=== PATIENT | female | born 1965 | race African-American/Black ===

== ENCOUNTER 2016-10-20 23:02 | Emergency (ER) | payer OTHER ==
[2016-10-20 23:16] VITALS: TEMP 98.2; BMI 53.7
--- NOTE | 2016-10-20 23:46 | PDOC ---
History of Present Illness - General History Source: Patient Exam Limitations: No Limitations - History of Present Illness Initial Comments: 10/21/16 01:12 The patient is a 50 year old female, with a significant past medical history of Asthma, COPD, Diabetes, HTN, Hiatal hernia, umbilical hernia, Morbid obesity who presents to the emergency department with chest pain today. The patient states her chest pain is 6/10 in severity, localized to the midsternal border with associated SOB exacerbated with movement radiating to her back and shoulder. Patient took asthma pumps however is unsure of the identity. Patient denies any relief and reports to the ED for further evaluation. Patient denies any recent travel or sick contact. Note: Patients LMP was 2 years ago. Patient is a current everyday smoker. She denies headache or dizziness. She denies fever, chills, abdominal pain, nausea, vomit, diarrhea or constipation. She denies dysuria, frequency, urgency or hematuria. Allergies: Shellfish derivative, codeine Past surgical history: C Section Social history: current everyday smoker PCP: Dr. Magan Gonzalez <Aziza Payton - Last Filed: 10/21/16 01:12> - General History Source: Patient <Obed Nguyen - Last Filed: 10/21/16 02:23> - General Chief Complaint: Chest Pain Stated Complaint: CHEST PAIN Time Seen by Provider: 10/20/16 23:39 Past History <Aziza Payton - Last Filed: 10/21/16 01:12> - Past Medical History Asthma: Yes COPD: Yes Diabetes: Yes GI Disorders: Yes (hiatal hernia, umbilical hernia) HTN: Yes - Immunization History Immunization Up to Date: Yes - Psycho/Social/Smoking Cessation Hx Anxiety: No Suicidal Ideation: No Smoking History: Current every day smoker Have you smoked in the past 12 months: Yes Number of Cigarettes Smoked Daily: 10 Information on smoking cessation initiated: No 'Breaking Loose' booklet given: 08/02/13 Hx Alcohol Use: Yes (occasion) Drug/Substance Use Hx: No Substance Use Type: None <Obed Nguyen - Last Filed: 10/21/16 02:23> - Past Medical History Allergies/Adverse Reactions: Allergies Allergy/AdvReac Type Severity Reaction Status Date / Time shellfish derived Allergy Unknown Verified 10/21/16 01:28 codeine Allergy Verified 10/21/16 01:28 Home Medications: Ambulatory Orders Labetalol HCl 200 mg PO TID 04/24/13 Nifedipine [Nifedipine ER] 60 mg PO DAILY 04/24/13 Omeprazole 40 mg PO DAILY 04/24/13 Roflumilast [Daliresp -] 500 mcg PO DAILY 04/24/13 Tiotropium Raymond [Spiriva] 1 inh PO DAILY 04/24/13 Metformin HCl 500 mg PO DAILY 01/28/15 Methylprednisolone [Medrol Dose Gonzalez] 4 mg PO ASDIR #21 tablet 10/21/16 Review of Systems - Review of Systems Able to Perform ROS?: Yes Comments:: 10/21/16 01:12 GENERAL/CONSTITUTIONAL: No fever or chills. No weakness. HEAD, EYES, EARS, NOSE AND THROAT: No change in vision. No ear pain or discharge. No sore throat. CARDIOVASCULAR: + chest pain + shortness of breath RESPIRATORY: No cough, wheezing, or hemoptysis. GASTROINTESTINAL: No nausea, vomiting, diarrhea or constipation. GENITOURINARY: No dysuria, frequency, or change in urination. MUSCULOSKELETAL: No joint or muscle swelling or pain. No neck or back pain. SKIN: No rash NEUROLOGIC: No headache, vertigo, loss of consciousness, or change in strength/ sensation. ENDOCRINE: No increased thirst. No abnormal weight change. HEMATOLOGIC/LYMPHATIC: No anemia, easy bleeding, or history of blood clots. ALLERGIC/IMMUNOLOGIC: No hives or skin allergy. <Aziza Payton - Last Filed: 10/21/16 01:12> *Physical Exam - Vital Signs Last Vital Signs Temp Pulse Resp BP Pulse Ox 98.2 F 88 20 168/104 98 10/20/16 23:14 10/20/16 23:14 10/20/16 23:14 10/20/16 23:14 10/20/16 23:14 - Physical Exam Comments: 10/21/16 01:12 GENERAL: Awake, alert, and fully oriented, in no acute distress. +Morbidly obese. HEAD: No signs of trauma EYES: PERRLA, EOMI, sclera anicteric, conjunctiva clear ENT: Auricles normal inspection, hearing grossly normal, nares patent, oropharynx clear without exudates. Moist mucosa NECK: Normal ROM, supple, no lymphadenopathy, JVD, or masses LUNGS: +Bilateral diminished breath sounds. Clear to auscultation bilaterally. No wheezes, and no crackles HEART: Regular rate and rhythm, normal S1 and S2, no murmurs, rubs or gallops ABDOMEN: Soft, nontender, normoactive bowel sounds. No guarding, no rebound. No masses EXTREMITIES: Normal range of motion, no edema. No clubbing or cyanosis. No cords, erythema, or tenderness NEUROLOGICAL: Cranial nerves II through XII grossly intact. Normal speech, normal gait SKIN: Warm, Dry, normal turgor, no rashes or lesions noted. <Aziza Payton - Last Filed: 10/21/16 01:12> - Vital Signs Last Vital Signs Temp Pulse Resp BP Pulse Ox 98.2 F 88 20 168/104 98 10/20/16 23:14 10/20/16 23:14 10/20/16 23:14 10/20/16 23:14 10/20/16 23:14 <Obed Nguyen - Last Filed: 10/21/16 02:23> ED Treatment Course - LABORATORY CBC & Chemistry Diagram: 10/21/16 01:00 10/21/16 01:00 <Obed Nguyen - Last Filed: 10/21/16 02:23> Medical Decision Making - Medical Decision Making 10/21/16 01:[address] Wendy Singer. rate [address] Interval 144 ms QRS Duration 78 ms QT/QTc 394/474 ms P-R-T axes 64 -3 36 <Aziza Payton - Last Filed: 10/21/16 01:12> - Medical Decision Making 10/21/16 02:22 Dr. Nguyen: The scribe's documentation has been prepared under my direction and personally reviewed by me in its entirery. I confirm that the note above accurately reflects all work, treatment, procedures, and medical decision making performed by me. Patient feels better after treatment here in the department. Patient will be discharged to follow-up with her primary care physician. Advised to stop smoking cigarettes. <Obed Nguyen - Last Filed: 10/21/16 02:23> *DC/Admit/Observation/Transfer - Attestations Scribe Attestion: 10/21/16 01:12 Documentation prepared by Aziza Payton, acting as medical biller for Obed Nguyen DO. <FitoAziza richardson - Last Filed: 10/21/16 01:12> - Discharge Dispostion Admit: No <Obed Nguyen - Last Filed: 10/21/16 02:23> Diagnosis at time of Disposition: COPD (chronic obstructive pulmonary disease) Qualifiers: COPD type: unspecified COPD Qualified Code(s): J44.9 - Chronic obstructive pulmonary disease, unspecified - Discharge Dispostion Disposition: HOME Condition at time of disposition: Improved - Prescriptions Prescriptions: Methylprednisolone [Medrol Dose Gonzalez] 4 mg PO ASDIR #21 tablet - Referrals Referrals: Antonio Gonzalez [Primary Care Provider] - - Patient Instructions Printed Discharge Instructions: DI for Chronic Obstructive Pulmonary Disease
[2016-10-20] MEDS ORDERED: methylPREDNISolone NA SUCC 125 MG/2 ML VIAL IVPB ONE (23:47)
[2016-10-20] MEDS ORDERED: ALBUTEROL SO4 2.5/IPRATROPIUM 0.5 INH SOL 3 ML VIAL.NEB. NEB STA ×2 (23:47→23:48)
[2016-10-20] MEDS ORDERED: MAGNESIUM SULF 50% (8.12 MEQ/2 ML-1 GM VIAL) IVPB ONE (23:47)
[2016-10-21] MEDS ORDERED: ALBUTEROL SO4 2.5/IPRATROPIUM 0.5 INH SOL 3 ML VIAL.NEB. NEB ONE (01:14)
[2016-10-21] MEDS ORDERED: MAGNESIUM SULF 50% (8.12 MEQ/2 ML-1 GM VIAL) ONE (01:14)
[2016-10-21] MEDS ORDERED: methylPREDNISolone NA SUCC 125 MG/2 ML VIAL ONE (01:15)
[2016-10-21 01:34] LABS: BASOPHIL 0.6 % (0-2.0); EOSINOPHIL 1.5 % (0-4.5); MCH 24.3 pg (25.7-33.7); MCHC 31.8 g/dl (32.0-36.0); MEAN CELL VOLUME 76.4 fl (80-96); MEAN PLT VOLUME 8.4 fl (7.5-11.1); NEUTROPHILS 49.4 % (42.8-82.8); PLATELET COUNT 274 K/MM3 (134-434); RDW 15.5 % (11.6-15.6); WHITE BLOOD COUNT 8.6 K/mm3 (4.0-10.0)
[2016-10-21 01:58] LABS: ALBUMIN 3.6 g/dl (3.4-5.0); ANION GAP 8 (8-16); BILIRUBIN,TOTAL 0.4 mg/dL (0.2-1.0); CALCIUM 9.2 mg/dL (8.5-10.1); CO2 25 mmol/L (21-32); CREATININE 0.8 mg/dL (0.55-1.02); GLUCOSE,RANDOM 140 mg/dL (74-106); MAGNESIUM 2.2 mg/dL (1.8-2.4); SGOT/AST 14 U/L (15-37); SGPT/ALT 39 U/L (12-78); TOT PROT 7.7 g/dl (6.4-8.2)
[2016-10-21 02:00] LABS: INR 1.05 (0.82-1.09); PROTHROMBIN TIME (PATIENT) 11.6 SEC (9.98-11.88)
[2016-10-21 02:01] LABS: ALK PHOS 141 U/L (45-117); CPK 341 IU/L (26-192); TROPONIN I < 0.02 ng/ml (0.00-0.05)
[2016-10-21 03:11] VITALS: BP 152/90; PULSE 85
--- NOTE | 2016-10-21 13:07 | EKG ---
Test Reason : Blood Pressure : / mmHG Vent. Rate : 086 BPM Atrial Rate : 086 BPM P-R Int : 142 ms QRS Dur : 078 ms QT Int : 392 ms P-R-T Axes : 065 -03 038 degrees QTc Int : 469 ms NORMAL SINUS RHYTHM NORMAL ECG WHEN COMPARED WITH ECG OF 02-AUG-2013 12:30, NO SIGNIFICANT CHANGE WAS FOUND Confirmed by NICOLE BREWER MD ([id number]) on 10/21/2016 1:07:22 PM Referred By: Confirmed By:NICOLE BREWER MD
== END 2016-10-21 03:09 | disposition home or self-care (01) ==
LOC: JER 23:02
PROC: 3E0F7GC Introduction of Other Therapeutic Substance into Respiratory Tract, Via Natural or Artificial Opening (ICD-10-PCS; principal; 2016-10-20)
PROC: 3E0F7GC Introduction of Other Therapeutic Substance into Respiratory Tract, Via Natural or Artificial Opening (ICD-10-PCS; 2016-10-20)
PROC: 3E0F7GC Introduction of Other Therapeutic Substance into Respiratory Tract, Via Natural or Artificial Opening (ICD-10-PCS; 2016-10-20)
PROC: 3E0333Z Introduction of Anti-inflammatory into Peripheral Vein, Percutaneous Approach (ICD-10-PCS; 2016-10-20)
DX: J44.9 Chronic obstructive pulmonary disease, unspecified (principal); I10 Essential (primary) hypertension; E11.9 Type 2 diabetes mellitus without complications; Z79.84 Long term (current) use of oral hypoglycemic drugs; K44.9 Diaphragmatic hernia without obstruction or gangrene
CPT/HCPCS: 36415; 71020-TC; 80053; 82553; 83735; 83880; 84484; 84703; 85025; 85610; 93005; 93010; 94640; 96374; 96375; 99282-25

== ENCOUNTER 2020-06-17 04:23 | Inpatient (IN) | payer OTHER ==
[2020-06-17 06:48] LABS: BASO % 1.2 % (0-2.0); CHLORIDE 106 mmol/L (98-107); EOS % 1.3 % (0-4.5); HEMATOCRIT 39.6 % (32.4-45.2); HEMOGLOBIN 13.3 GM/dL (10.7-15.3); LYMPH % 40.2 % (8-40); MCH 27.5 pg (25.7-33.7); MCHC 33.6 g/dl (32.0-36.0); MEAN CELL VOLUME 81.8 fl (80-96); MEAN PLT VOLUME 8.9 fl (7.5-11.1); MONO % 5.1 % (3.8-10.2); NEUT % 52.2 % (42.8-82.8); PLATELET COUNT 248 K/MM3 (134-434); POTASSIUM 3.9 mmol/L (3.5-5.1); RBC 4.84 M/mm3 (3.60-5.2); RDW 14.2 % (11.6-15.6); SODIUM 138 mmol/L (136-145); WHITE BLOOD COUNT 9.4 K/mm3 (4.0-10.0)
[2020-06-17 06:50] LABS: CALCIUM 8.6 mg/dL (8.5-10.1); GLUCOSE,RANDOM 372 mg/dL (74-106)
[2020-06-17 06:51] LABS: ALBUMIN 3.1 g/dl (3.4-5.0); ANION GAP 5 MMOL/L (8-16); BLOOD UREA NITROGEN 16.4 mg/dL (7-18); CO2 27 mmol/L (21-32)
[2020-06-17 06:54] LABS: CREATININE 1.1 mg/dL (0.55-1.3); SGOT/AST 15 U/L (15-37); SGPT/ALT 33 U/L (13-61)
[2020-06-17 06:55] LABS: BILIRUBIN,TOTAL 0.3 mg/dL (0.2-1); TOT PROT 6.9 g/dl (6.4-8.2)
[2020-06-17 06:56] LABS: ALK PHOS 126 U/L (45-117)
[2020-06-17 07:21] LABS: N-TERMINAL BNP 131.9 pg/ml (5-125)
[2020-06-17] MEDS ORDERED: FUROSEMIDE 40 MG/4 ML INJECTABLE VIAL IVPUSH ONE ×2 (08:28→08:56)
[2020-06-17] MEDS ORDERED: ALBUTEROL SO4 0.083% IH SOL 2.5 MG/3 ML VIAL.NEB. NEB PRN (08:32)
[2020-06-17] MEDS ORDERED: PANTOPRAZOLE 40 MG TABLET ONE (08:46)
[2020-06-17] MEDS ORDERED: LISINOPRIL 20 MG TABLET ONE (08:46)
[2020-06-17] MEDS ORDERED: TOPIRAMATE 25 MG TABLET ONE (08:47)
[2020-06-17] MEDS ORDERED: METOPROLOL TARTRATE 50 MG TABLET (FP) ONE (08:47)
[2020-06-17] MEDS ORDERED: FUROSEMIDE 40 MG/4 ML INJECTABLE VIAL ONE (08:48)
[2020-06-17] MEDS: METOPROLOL TARTRATE 50 MG TABLET (FP) PO SCH (09:00)
[2020-06-17] MEDS: TOPIRAMATE 100 MG TABLET PO SCH ×2 (09:00→23:57)
[2020-06-17] MEDS: PANTOPRAZOLE 40 MG TABLET PO SCH (09:00)
[2020-06-17] MEDS: LISINOPRIL 20 MG TABLET PO SCH (09:00)
[2020-06-17] MEDS ORDERED: methylPREDNISolone NA SUCC 40 MG/1 ML VIAL IVPUSH ONE (09:29)
[2020-06-17] MEDS ORDERED: methylPREDNISolone NA SUCC 40 MG/1 ML VIAL ONE (09:36)
[2020-06-17] MEDS ORDERED: buPROPion HCL 100 MG TABLET PO SCH (10:00)
[2020-06-17] MEDS ORDERED: PATIENT'S OWN MEDICATION (NON-FORMULARY) (Lisinopril [Prinivil -] 40 MG Tablet) PO SCH (10:00)
[2020-06-17] MEDS: methylPREDNISolone NA SUCC 40 MG/1 ML VIAL IVPUSH SCH ×2 (11:41→17:19)
[2020-06-17] MEDS: INSULIN SLIDING SCALE (NOVOLOG) 1 VIAL SQ SCH ×3 (12:30→22:59)
[2020-06-17] MEDS: INSULIN (LEVEMIR) 100 UNITS/ML UNITS SQ SCH ×2 (12:30→22:58)
[2020-06-17] MEDS: ENOXAPARIN NA (PORCINE) 40 MG/0.4 ML DISP.SYRIN SQ SCH (12:42)
[2020-06-17] MEDS: ALBUTEROL SO4 2.5/IPRATROPIUM 0.5 INH SOL 3 ML VIAL.NEB. NEB SCH ×3 (12:42→20:00)
[2020-06-17] MEDS ORDERED: ALBUTEROL SO4 2.5/IPRATROPIUM 0.5 INH SOL 3 ML VIAL.NEB. NEB ONE (14:57)
[2020-06-17] MEDS ORDERED: INSULIN (LEVEMIR) 100 UNITS/ML UNITS SQ SCH (22:00)
[2020-06-18] MEDS: methylPREDNISolone NA SUCC 40 MG/1 ML VIAL IVPUSH SCH ×3 (01:56→18:22)
[2020-06-18 05:37] VITALS: BMI 57.3
[2020-06-18] MEDS: INSULIN SLIDING SCALE (NOVOLOG) 1 VIAL SQ SCH ×4 (06:46→21:37)
[2020-06-18] MEDS: INSULIN (LEVEMIR) 100 UNITS/ML UNITS SQ SCH ×3 (06:48→21:39)
[2020-06-18] MEDS: ALBUTEROL SO4 2.5/IPRATROPIUM 0.5 INH SOL 3 ML VIAL.NEB. NEB SCH ×4 (07:45→20:30)
[2020-06-18 08:02] LABS: MEAN PLT VOLUME 9.3 fl (7.5-11.1); WHITE BLOOD COUNT 10.8 K/mm3 (4.0-10.0)
[2020-06-18 08:05] LABS: BASO % 0.1 % (0-2.0); HEMATOCRIT 38.3 % (32.4-45.2); HEMOGLOBIN 12.5 GM/dL (10.7-15.3); LYMPH % 15.3 % (8-40); MCH 26.9 pg (25.7-33.7); MCHC 32.6 g/dl (32.0-36.0); MEAN CELL VOLUME 82.6 fl (80-96); MONO % 2.4 % (3.8-10.2); NEUT % 82.2 % (42.8-82.8); PLATELET COUNT 226 K/MM3 (134-434); RBC 4.64 M/mm3 (3.60-5.2); RDW 13.8 % (11.6-15.6)
[2020-06-18 08:10] LABS: CHLORIDE 103 mmol/L (98-107); POTASSIUM 4.5 mmol/L (3.5-5.1); SODIUM 135 mmol/L (136-145)
[2020-06-18 08:15] LABS: ALBUMIN 3.1 g/dl (3.4-5.0); CALCIUM 9.6 mg/dL (8.5-10.1)
[2020-06-18 08:16] LABS: ANION GAP 7 MMOL/L (8-16); CO2 25 mmol/L (21-32)
[2020-06-18 08:19] LABS: SGOT/AST 13 U/L (15-37); SGPT/ALT 33 U/L (13-61)
[2020-06-18 08:20] LABS: BILIRUBIN,TOTAL 0.4 mg/dL (0.2-1); TOT PROT 6.9 g/dl (6.4-8.2)
[2020-06-18 08:21] LABS: ALK PHOS 116 U/L (45-117)
[2020-06-18 08:23] LABS: GLUCOSE,RANDOM 437 mg/dL (74-106)
[2020-06-18] MEDS ORDERED: FUROSEMIDE 40 MG/4 ML INJECTABLE VIAL IVPUSH SCH (10:00)
[2020-06-18] MEDS: NICOTINE 7 MG/24 HOURS TOPICAL PATCH TD PRN (10:05)
[2020-06-18] MEDS: ENOXAPARIN NA (PORCINE) 40 MG/0.4 ML DISP.SYRIN SQ SCH (10:05)
[2020-06-18] MEDS: METOPROLOL TARTRATE 50 MG TABLET (FP) PO SCH (10:06)
[2020-06-18] MEDS: LISINOPRIL 20 MG TABLET PO SCH (10:06)
[2020-06-18] MEDS: PANTOPRAZOLE 40 MG TABLET PO SCH (10:06)
[2020-06-18] MEDS: TOPIRAMATE 100 MG TABLET PO SCH ×2 (10:06→21:38)
[2020-06-18] MEDS ORDERED: INSULIN (LEVEMIR) 100 UNITS/ML UNITS SQ ONE (12:16)
[2020-06-18] MEDS ORDERED: INSULIN (NOVOLOG) ASPART 100 UNITS/ML 10ML VIAL ONE (12:16)
[2020-06-18 14:41] LABS: INR 1.07 (0.83-1.09); PROTHROMBIN TIME (PATIENT) 12.9 SEC (9.7-13.0)
[2020-06-18] MEDS: FUROSEMIDE 40 MG/4 ML INJECTABLE VIAL IVPUSH SCH (15:36)
[2020-06-18] MEDS: glipiZIDE 10 MG TABLET (FP) PO SCH (21:38)
[2020-06-18] MEDS: guaiFENesin/D-METHORPHAN HB 10 ML UNIT-DOSE CUPS PO PRN (23:05)
[2020-06-19] MEDS: methylPREDNISolone NA SUCC 40 MG/1 ML VIAL IVPUSH SCH ×3 (01:49→17:36)
[2020-06-19] MEDS ORDERED: glipiZIDE 5 MG TABLET (FP) ONE ×2 (06:38→16:32)
[2020-06-19] MEDS: glipiZIDE 10 MG TABLET (FP) PO SCH ×2 (06:43→16:34)
[2020-06-19] MEDS: FUROSEMIDE 40 MG/4 ML INJECTABLE VIAL IVPUSH SCH ×2 (06:44→14:53)
[2020-06-19] MEDS: INSULIN SLIDING SCALE (NOVOLOG) 1 VIAL SQ SCH ×3 (06:44→21:49)
[2020-06-19] MEDS: INSULIN (LEVEMIR) 100 UNITS/ML UNITS SQ SCH ×2 (06:45→21:49)
[2020-06-19] MEDS: guaiFENesin/D-METHORPHAN HB 10 ML UNIT-DOSE CUPS PO PRN ×2 (09:15→21:53)
[2020-06-19] MEDS: ENOXAPARIN NA (PORCINE) 40 MG/0.4 ML DISP.SYRIN SQ SCH (09:15)
[2020-06-19] MEDS: LISINOPRIL 20 MG TABLET PO SCH (09:15)
[2020-06-19] MEDS: METOPROLOL TARTRATE 50 MG TABLET (FP) PO SCH (09:17)
[2020-06-19] MEDS: NICOTINE 7 MG/24 HOURS TOPICAL PATCH TD PRN (09:17)
[2020-06-19] MEDS: PANTOPRAZOLE 40 MG TABLET PO SCH (09:17)
[2020-06-19 09:57] LABS: CHLORIDE 98 mmol/L (98-107); POTASSIUM 4.5 mmol/L (3.5-5.1); SODIUM 131 mmol/L (136-145)
[2020-06-19 10:06] LABS: ANION GAP 8 MMOL/L (8-16); BLOOD UREA NITROGEN 24.7 mg/dL (7-18); CALCIUM 9.6 mg/dL (8.5-10.1); CO2 25 mmol/L (21-32)
[2020-06-19 10:09] LABS: CREATININE 1.3 mg/dL (0.55-1.3)
[2020-06-19 10:27] LABS: GLUCOSE,RANDOM 611 mg/dL (74-106)
[2020-06-19] MEDS: TOPIRAMATE 100 MG TABLET PO SCH ×2 (10:30→21:48)
[2020-06-19] MEDS: ALBUTEROL SO4 2.5/IPRATROPIUM 0.5 INH SOL 3 ML VIAL.NEB. NEB SCH ×4 (10:48→20:15)
[2020-06-19] MEDS ORDERED: INSULIN SLIDING SCALE (NOVOLOG) 1 VIAL SQ SCH (11:27)
[2020-06-19] MEDS ORDERED: INSULIN (NOVOLOG) ASPART 100 UNITS/ML 10ML VIAL SQ ONE (17:00)
[2020-06-19] MEDS ORDERED: PT OWN MED DRAWER 7, Y5N ONE (21:38)
[2020-06-20] MEDS: methylPREDNISolone NA SUCC 40 MG/1 ML VIAL IVPUSH SCH ×3 (01:31→12:16)
[2020-06-20] MEDS ORDERED: glipiZIDE 5 MG TABLET (FP) ONE ×2 (06:33→17:04)
[2020-06-20] MEDS: INSULIN SLIDING SCALE (NOVOLOG) 1 VIAL SQ SCH ×4 (06:39→22:28)
[2020-06-20] MEDS: INSULIN (LEVEMIR) 100 UNITS/ML UNITS SQ SCH ×2 (06:39→22:30)
[2020-06-20] MEDS: FUROSEMIDE 40 MG/4 ML INJECTABLE VIAL IVPUSH SCH ×2 (06:40→14:35)
[2020-06-20] MEDS: glipiZIDE 10 MG TABLET (FP) PO SCH ×2 (06:40→17:18)
[2020-06-20] MEDS: ALBUTEROL SO4 2.5/IPRATROPIUM 0.5 INH SOL 3 ML VIAL.NEB. NEB SCH ×4 (07:30→21:00)
[2020-06-20 08:02] LABS: CHLORIDE 97 mmol/L (98-107); POTASSIUM 4.8 mmol/L (3.5-5.1); SODIUM 140 mmol/L (136-145)
[2020-06-20 08:07] LABS: BLOOD UREA NITROGEN 32.3 mg/dL (7-18)
[2020-06-20 08:08] LABS: CALCIUM 10.2 mg/dL (8.5-10.1)
[2020-06-20 08:09] LABS: ANION GAP 15 MMOL/L (8-16); CO2 28 mmol/L (21-32)
[2020-06-20 08:10] LABS: CREATININE 1.2 mg/dL (0.55-1.3)
[2020-06-20 08:13] LABS: GLUCOSE,RANDOM 482 mg/dL (74-106)
[2020-06-20] MEDS ORDERED: PT OWN MED DRAWER 7, Y5N ONE ×2 (09:39→22:21)
[2020-06-20] MEDS: METOPROLOL TARTRATE 50 MG TABLET (FP) PO SCH (09:41)
[2020-06-20] MEDS: LISINOPRIL 20 MG TABLET PO SCH (09:41)
[2020-06-20] MEDS: TOPIRAMATE 100 MG TABLET PO SCH ×2 (09:42→22:27)
[2020-06-20] MEDS: PANTOPRAZOLE 40 MG TABLET PO SCH (09:42)
[2020-06-20] MEDS: ENOXAPARIN NA (PORCINE) 40 MG/0.4 ML DISP.SYRIN SQ SCH (09:42)
[2020-06-20] MEDS: NICOTINE 7 MG/24 HOURS TOPICAL PATCH TD PRN (09:45)
[2020-06-20] MEDS ORDERED: INSULIN (NOVOLOG) ASPART 100 UNITS/ML 10ML VIAL ONE (16:48)
[2020-06-21] MEDS: methylPREDNISolone NA SUCC 40 MG/1 ML VIAL IVPUSH SCH ×2 (01:04→11:47)
[2020-06-21] MEDS ORDERED: glipiZIDE 5 MG TABLET (FP) ONE (06:17)
[2020-06-21] MEDS: INSULIN (LEVEMIR) 100 UNITS/ML UNITS SQ SCH ×2 (06:19→22:41)
[2020-06-21] MEDS: INSULIN SLIDING SCALE (NOVOLOG) 1 VIAL SQ SCH ×4 (06:21→22:12)
[2020-06-21] MEDS: FUROSEMIDE 40 MG/4 ML INJECTABLE VIAL IVPUSH SCH ×2 (06:23→13:45)
[2020-06-21] MEDS: glipiZIDE 10 MG TABLET (FP) PO SCH ×2 (06:23→16:57)
[2020-06-21] MEDS: ALBUTEROL SO4 2.5/IPRATROPIUM 0.5 INH SOL 3 ML VIAL.NEB. NEB SCH ×4 (07:45→20:33)
[2020-06-21 08:01] LABS: CHLORIDE 99 mmol/L (98-107); POTASSIUM 4.5 mmol/L (3.5-5.1); SODIUM 134 mmol/L (136-145)
[2020-06-21 08:03] LABS: CALCIUM 9.1 mg/dL (8.5-10.1)
[2020-06-21 08:04] LABS: ANION GAP 8 MMOL/L (8-16); BLOOD UREA NITROGEN 28.1 mg/dL (7-18); CO2 27 mmol/L (21-32)
[2020-06-21 08:07] LABS: CREATININE 1.2 mg/dL (0.55-1.3)
[2020-06-21 08:16] LABS: GLUCOSE,RANDOM 410 mg/dL (74-106)
[2020-06-21] MEDS: ENOXAPARIN NA (PORCINE) 40 MG/0.4 ML DISP.SYRIN SQ SCH (09:51)
[2020-06-21] MEDS: PANTOPRAZOLE 40 MG TABLET PO SCH (09:51)
[2020-06-21] MEDS: LISINOPRIL 20 MG TABLET PO SCH (09:51)
[2020-06-21] MEDS: METOPROLOL TARTRATE 50 MG TABLET (FP) PO SCH (09:51)
[2020-06-21] MEDS: TOPIRAMATE 100 MG TABLET PO SCH ×2 (09:52→23:04)
[2020-06-21] MEDS ORDERED: INSULIN (NOVOLOG) ASPART 100 UNITS/ML 10ML VIAL ONE ×2 (11:42→16:54)
[2020-06-22] MEDS: FUROSEMIDE 40 MG/4 ML INJECTABLE VIAL IVPUSH SCH ×2 (06:31→13:01)
[2020-06-22] MEDS ORDERED: glipiZIDE 5 MG TABLET (FP) ONE ×2 (06:38→07:09)
[2020-06-22] MEDS: INSULIN SLIDING SCALE (NOVOLOG) 1 VIAL SQ SCH ×3 (06:41→16:10)
[2020-06-22] MEDS: INSULIN (LEVEMIR) 100 UNITS/ML UNITS SQ SCH (06:41)
[2020-06-22] MEDS: glipiZIDE 10 MG TABLET (FP) PO SCH ×2 (07:12→16:11)
[2020-06-22] MEDS: ALBUTEROL SO4 2.5/IPRATROPIUM 0.5 INH SOL 3 ML VIAL.NEB. NEB SCH (08:06)
[2020-06-22 08:10] LABS: POTASSIUM 3.5 mmol/L (3.5-5.1)
[2020-06-22 08:17] LABS: CALCIUM 9.1 mg/dL (8.5-10.1)
[2020-06-22 08:18] LABS: BLOOD UREA NITROGEN 24.3 mg/dL (7-18)
[2020-06-22] MEDS ORDERED: predniSONE 20 MG TABLET (UD) PO SCH (10:00)
[2020-06-22] MEDS ORDERED: methylPREDNISolone NA SUCC 40 MG/1 ML VIAL IVPUSH SCH (10:00)
[2020-06-22] MEDS: ENOXAPARIN NA (PORCINE) 40 MG/0.4 ML DISP.SYRIN SQ SCH (10:12)
[2020-06-22] MEDS: METOPROLOL TARTRATE 50 MG TABLET (FP) PO SCH (10:13)
[2020-06-22] MEDS: NICOTINE 7 MG/24 HOURS TOPICAL PATCH TD PRN (10:13)
[2020-06-22] MEDS: LISINOPRIL 20 MG TABLET PO SCH (10:13)
[2020-06-22] MEDS: PANTOPRAZOLE 40 MG TABLET PO SCH (10:14)
[2020-06-22] MEDS: TOPIRAMATE 100 MG TABLET PO SCH (10:14)
[2020-06-22] MEDS ORDERED: AZITHROMYCIN 250 MG TABLET PO ONE (12:19)
[2020-06-22] MEDS: guaiFENesin/D-METHORPHAN HB 10 ML UNIT-DOSE CUPS PO PRN (13:00)
[2020-06-22 16:15] VITALS: BP 126/68; PULSE 90; TEMP 98
== END 2020-06-22 18:45 | disposition home or self-care (01) | DRG 194 ==
LOC: SUATTDRO 04:23 → JER 04:23 → JERBED 08:35 → OBSVTOIN 11:35 → J7W 21:50
PROVIDERS: ADMIT Internal Medicine; ATTEND Internal Medicine
DX: I11.0 Hypertensive heart disease with heart failure (principal); I50.33 Acute on chronic diastolic (congestive) heart failure; J44.1 Chronic obstructive pulmonary disease with (acute) exacerbation; E78.5 Hyperlipidemia, unspecified; G47.33 Obstructive sleep apnea (adult) (pediatric); R00.0 Tachycardia, unspecified; K44.9 Diaphragmatic hernia without obstruction or gangrene; K42.9 Umbilical hernia without obstruction or gangrene; E88.81 Metabolic syndrome and other insulin resistance; E66.01 Morbid (severe) obesity due to excess calories; Z68.43 Body mass index [BMI] 50.0-59.9, adult; M19.90 Unspecified osteoarthritis, unspecified site; M35.1 Other overlap syndromes; E11.65 Type 2 diabetes mellitus with hyperglycemia; F17.210 Nicotine dependence, cigarettes, uncomplicated; R94.31 Abnormal electrocardiogram [ECG] [EKG]; G43.909 Migraine, unspecified, not intractable, without status migrainosus; E88.09 Other disorders of plasma-protein metabolism, not elsewhere classified; I25.10 Atherosclerotic heart disease of native coronary artery without angina pectoris
CPT/HCPCS: 36415; 71045-TC-FY; 80048; 80053; 82550; 82553; 82962; 83036; 83880; 84484; 85025; 85610; 93005; 93010; 94640; 94660; 94761; 99285-25; C9803; G0378; U0003; U0005

== ENCOUNTER 2020-07-04 15:31 | Emergency (ER) | payer OTHER ==
[2020-07-04 15:49] VITALS: BMI 55.1
[2020-07-04] MEDS ORDERED: DEXAMETHASONE SOD PHOSPHATE 10 MG/1 ML VIAL IVPUSH ONE (16:29)
[2020-07-04] MEDS ORDERED: DEXAMETHASONE SOD PHOSPHATE 10 MG/1 ML VIAL ONE (17:05)
[2020-07-04 18:23] LABS: BASO % 0.9 % (0-2.0); EOS % 2.4 % (0-4.5); HEMATOCRIT 42.7 % (32.4-45.2); LYMPH % 38.4 % (8-40); MCH 26.9 pg (25.7-33.7); MCHC 32.7 g/dl (32.0-36.0); MEAN CELL VOLUME 82.2 fl (80-96); MEAN PLT VOLUME 9.3 fl (7.5-11.1); MONO % 4.8 % (3.8-10.2); NEUT % 53.5 % (42.8-82.8); PLATELET COUNT 212 K/MM3 (134-434); RBC 5.19 M/mm3 (3.60-5.2); RDW 14.1 % (11.6-15.6); WHITE BLOOD COUNT 10.6 K/mm3 (4.0-10.0)
[2020-07-04 18:44] LABS: CALCIUM 9.8 mg/dL (8.5-10.1)
[2020-07-04 18:45] LABS: BLOOD UREA NITROGEN 14.8 mg/dL (7-18)
[2020-07-05 01:37] VITALS: BP 141/95; PULSE 92
[2020-07-05 02:38] VITALS: TEMP 97.6
[2020-07-05 11:08] LABS: SARS-CoV-2 NAA Not Detected (Not Detected)
== END 2020-07-05 02:56 | disposition short-term general hospital (02) ==
LOC: JER 15:31
PROC: 3E033NZ Introduction of Analgesics, Hypnotics, Sedatives into Peripheral Vein, Percutaneous Approach (ICD-10-PCS; principal; 2020-07-04)
DX: J39.2 Other diseases of pharynx (principal)
CPT/HCPCS: 36415; 70490-TC; 80048; 85025; 87880; 99284-25; C9803; J1100; U0003; U0005

== ENCOUNTER 2020-11-06 09:11 | Emergency (ER) | payer OTHER ==
[2020-11-06 09:16] VITALS: BMI 54.8
[2020-11-06] MEDS ORDERED: ACETAMINOPHEN 1000 MG/100 ML VIAL (NON FORMULARY) IVPB ONE (09:49)
[2020-11-06] MEDS ORDERED: SODIUM CHLORIDE 1,000 ML IV STA (09:49)
[2020-11-06] MEDS ORDERED: ACETAMINOPHEN INJECTION 100 ML IVPB ONE (10:09)
[2020-11-06 10:27] LABS: BASO % 0.7 % (0-2.0); EOS % 1.2 % (0-4.5); HEMATOCRIT 40.8 % (32.4-45.2); HEMOGLOBIN 13.4 GM/dL (10.7-15.3); LYMPH % 33.9 % (8-40); MCH 26.7 pg (25.7-33.7); MCHC 32.9 g/dl (32.0-36.0); MEAN CELL VOLUME 81.2 fl (80-96); MEAN PLT VOLUME 8.7 fl (7.5-11.1); MONO % 5.8 % (3.8-10.2); NEUT % 58.4 % (42.8-82.8); PLATELET COUNT 286 10^3/uL (134-434); RBC 5.02 M/mm3 (3.60-5.2); RDW 13.8 % (11.6-15.6); WHITE BLOOD COUNT 11.3 K/mm3 (4.0-10.0)
[2020-11-06 10:34] LABS: INR 1.13 (0.83-1.09); PROTHROMBIN TIME (PATIENT) 13.6 SEC (9.7-13.0)
[2020-11-06 10:37] LABS: ALBUMIN 3.1 g/dl (3.4-5.0); BLOOD UREA NITROGEN 13.6 mg/dL (7-18); CALCIUM 8.8 mg/dL (8.5-10.1)
[2020-11-06 10:42] LABS: BILIRUBIN,TOTAL 0.5 mg/dL (0.2-1); TOT PROT 7.1 g/dl (6.4-8.2)
[2020-11-06] MEDS ORDERED: ONDANSETRON 4 MG/2 ML VIAL IVPUSH ONE (11:29)
[2020-11-06] MEDS ORDERED: ONDANSETRON 4 MG/2 ML VIAL ONE (12:28)
[2020-11-06 17:26] VITALS: BP 132/65; PULSE 99; TEMP 98.6
[2020-11-06] MEDS ORDERED: KETOROLAC TROMETHAMINE 60 MG/2 ML VIAL IVPUSH ONE (18:15)
[2020-11-06] MEDS ORDERED: KETOROLAC TROMETHAMINE 30 MG/1 ML VIAL ONE (18:35)
== END 2020-11-06 18:45 | disposition home or self-care (01) ==
LOC: JER 09:11
PROC: 3E0333Z Introduction of Anti-inflammatory into Peripheral Vein, Percutaneous Approach (ICD-10-PCS; principal; 2020-11-06)
PROC: 3E0333Z Introduction of Anti-inflammatory into Peripheral Vein, Percutaneous Approach (ICD-10-PCS; 2020-11-06)
PROC: 3E033GC Introduction of Other Therapeutic Substance into Peripheral Vein, Percutaneous Approach (ICD-10-PCS; 2020-11-06)
PROC: 3E0337Z Introduction of Electrolytic and Water Balance Substance into Peripheral Vein, Percutaneous Approach (ICD-10-PCS; 2020-11-06)
DX: K42.9 Umbilical hernia without obstruction or gangrene (principal)
CPT/HCPCS: 36415; 74176-TC; 80053; 85025; 85610; 99284-25; J0131; Q9967

== ENCOUNTER 2021-01-08 06:14 | Inpatient (IN) | payer OTHER ==
[2021-01-08] MEDS ORDERED: ALBUTEROL SO4 2.5/IPRATROPIUM 0.5 INH SOL 3 ML VIAL.NEB. NEB ONE ×5 (06:39→22:13)
[2021-01-08 07:11] LABS: BASO % 0.6 % (0-2.0); EOS % 1.9 % (0-4.5); HEMATOCRIT 39.2 % (32.4-45.2); LYMPH % 35.8 % (8-40); MCH 26.5 pg (25.7-33.7); MEAN CELL VOLUME 80.2 fl (80-96); MEAN PLT VOLUME 8.2 fl (7.5-11.1); MONO % 6.3 % (3.8-10.2); NEUT % 55.4 % (42.8-82.8); PLATELET COUNT 272 10^3/uL (134-434); RBC 4.89 M/mm3 (3.60-5.2); RDW 14.4 % (11.6-15.6); WHITE BLOOD COUNT 8.7 K/mm3 (4.0-10.0)
[2021-01-08 07:22] LABS: INR 1.02 (0.83-1.09); PROTHROMBIN TIME (PATIENT) 11.4 SEC (9.7-13.0)
[2021-01-08 07:24] LABS: ACTIVATED PTT 29.1 SECONDS (25.2-36.5)
[2021-01-08 07:33] LABS: CHLORIDE 110 mmol/L (98-107); SODIUM 144 mmol/L (136-145)
[2021-01-08 07:35] LABS: ALBUMIN 3.1 g/dl (3.4-5.0); ANION GAP 9 MMOL/L (8-16); BLOOD UREA NITROGEN 13.9 mg/dL (7-18); CO2 24 mmol/L (21-32)
[2021-01-08 07:36] LABS: GLUCOSE,RANDOM 258 mg/dL (74-106)
[2021-01-08 07:38] LABS: SGOT/AST 11 U/L (15-37); SGPT/ALT 30 U/L (13-61)
[2021-01-08 07:39] LABS: CREATININE 0.9 mg/dL (0.55-1.3)
[2021-01-08 07:40] LABS: BILIRUBIN,TOTAL 0.2 mg/dL (0.2-1); TOT PROT 7.4 g/dl (6.4-8.2)
[2021-01-08 07:41] LABS: ALK PHOS 114 U/L (45-117)
[2021-01-08 07:43] LABS: N-TERMINAL BNP 132.5 pg/ml (5-125)
[2021-01-08] MEDS ORDERED: FUROSEMIDE 40 MG/4 ML INJECTABLE VIAL IVPUSH ONE (07:53)
[2021-01-08 07:57] LABS: MAGNESIUM 1.5 mg/dL (1.8-2.4)
[2021-01-08] MEDS ORDERED: FUROSEMIDE 40 MG/4 ML INJECTABLE VIAL ONE (08:11)
[2021-01-08] MEDS ORDERED: MAGNESIUM SULF 50% (8.12 MEQ/2 ML-1 GM VIAL) IVPB ONE (08:24)
[2021-01-08] MEDS ORDERED: ALBUTEROL SO4 0.083% IH SOL 2.5 MG/3 ML VIAL.NEB. NEB ONE (08:32)
[2021-01-08] MEDS ORDERED: ALBUTEROL SO4 0.5 % INH SOLN 2.5 MG/0.5 ML VIAL.NEB. NEB ONE (08:41)
[2021-01-08] MEDS ORDERED: MAGNESIUM SULFATE IN WATER 2 GM/50 ML IVPB IVPB ONE (08:42)
[2021-01-08] MEDS ORDERED: AZITHROMYCIN IVPB 500 MG in DEXTROSE 5%-WATER - 250 ML IVPB ONE (11:07)
[2021-01-08] MEDS ORDERED: AZITHROMYCIN IVPB 500 MG/250 ML BAG IVPB ONE (11:54)
[2021-01-08] MEDS ORDERED: NICOTINE 7 MG/24 HOURS TOPICAL PATCH TD PRN (15:46)
[2021-01-08] MEDS ORDERED: ALBUTEROL SO4 0.083% IH SOL 2.5 MG/3 ML VIAL.NEB. NEB SCH (16:00)
[2021-01-08] MEDS ORDERED: ALBUTEROL SO4 2.5/IPRATROPIUM 0.5 INH SOL 3 ML VIAL.NEB. NEB PRN (17:30)
[2021-01-08] MEDS ORDERED: ATORVASTATIN CA 20 MG TABLET (FP) ONE (22:05)
[2021-01-08] MEDS ORDERED: TOPIRAMATE 25 MG TABLET ONE (22:06)
[2021-01-08] MEDS ORDERED: HEPARIN NA (PORCINE) 5,000 UNITS/ML 1ML VIAL ONE (22:06)
[2021-01-08] MEDS ORDERED: methylPREDNISolone NA SUCC 40 MG/1 ML VIAL ONE (22:06)
[2021-01-08] MEDS: ATORVASTATIN CA 20 MG TABLET (FP) PO SCH (22:27)
[2021-01-08] MEDS: NICOTINE 14 MG/24 HOURS TOPICAL PATCH TD SCH (22:27)
[2021-01-08] MEDS: TOPIRAMATE 100 MG TABLET PO SCH (22:27)
[2021-01-08] MEDS: methylPREDNISolone NA SUCC 40 MG/1 ML VIAL IVPUSH SCH ×2 (22:27→22:55)
[2021-01-08] MEDS: ALBUTEROL SO4 2.5/IPRATROPIUM 0.5 INH SOL 3 ML VIAL.NEB. NEB SCH (22:27)
[2021-01-08] MEDS: HEPARIN NA (PORCINE) 5,000 UNITS/ML 1ML VIAL SQ SCH (22:27)
[2021-01-08] MEDS: INSULIN SLIDING SCALE (NOVOLOG) 1 VIAL SQ SCH ×2 (22:56→22:58)
[2021-01-08] MEDS: PRAMIPEXOLE DIHYDROCHLORIDE 0.5 MG TABLET PO SCH (23:16)
[2021-01-09] MEDS ORDERED: ACETAMINOPHEN 325 MG TABLET (FP) PO ONE (01:21)
[2021-01-09 02:00] VITALS: BMI 54.8
[2021-01-09] MEDS: HEPARIN NA (PORCINE) 5,000 UNITS/ML 1ML VIAL SQ SCH ×3 (02:08→17:28)
[2021-01-09] MEDS: methylPREDNISolone NA SUCC 40 MG/1 ML VIAL IVPUSH SCH ×3 (02:08→17:28)
[2021-01-09] MEDS: FUROSEMIDE 40 MG/4 ML INJECTABLE VIAL IVPUSH SCH ×2 (05:59→13:58)
[2021-01-09] MEDS: INSULIN SLIDING SCALE (NOVOLOG) 1 VIAL SQ SCH ×4 (06:08→21:57)
[2021-01-09 07:19] LABS: BASO % 0.1 % (0-2.0); HEMATOCRIT 38.3 % (32.4-45.2); HEMOGLOBIN 12.5 GM/dL (10.7-15.3); LYMPH % 13.9 % (8-40); MCH 26.3 pg (25.7-33.7); MCHC 32.5 g/dl (32.0-36.0); MEAN CELL VOLUME 80.8 fl (80-96); MEAN PLT VOLUME 8.8 fl (7.5-11.1); PLATELET COUNT 262 10^3/uL (134-434); RBC 4.74 M/mm3 (3.60-5.2); RDW 14.8 % (11.6-15.6); WHITE BLOOD COUNT 10.4 K/mm3 (4.0-10.0)
[2021-01-09] MEDS: ALBUTEROL SO4 2.5/IPRATROPIUM 0.5 INH SOL 3 ML VIAL.NEB. NEB SCH ×4 (07:30→20:28)
[2021-01-09 07:34] LABS: CHLORIDE 105 mmol/L (98-107); SODIUM 137 mmol/L (136-145)
[2021-01-09 07:38] LABS: ALBUMIN 3.1 g/dl (3.4-5.0); ANION GAP 5 MMOL/L (8-16); BLOOD UREA NITROGEN 20.6 mg/dL (7-18); CALCIUM 9.3 mg/dL (8.5-10.1); CO2 27 mmol/L (21-32); MAGNESIUM 2.1 mg/dL (1.8-2.4)
[2021-01-09 07:41] LABS: PHOSPHOROUS 3.2 mg/dL (2.5-4.9); SGOT/AST 11 U/L (15-37); SGPT/ALT 25 U/L (13-61)
[2021-01-09 07:42] LABS: BILIRUBIN,TOTAL 0.4 mg/dL (0.2-1); TOT PROT 7.1 g/dl (6.4-8.2)
[2021-01-09 07:44] LABS: ALK PHOS 105 U/L (45-117)
[2021-01-09 07:46] LABS: GLUCOSE,RANDOM 471 mg/dL (74-106)
[2021-01-09] MEDS: INSULIN (LEVEMIR) 100 UNITS/ML UNITS SQ SCH ×2 (09:22→21:56)
[2021-01-09] MEDS: NICOTINE 14 MG/24 HOURS TOPICAL PATCH TD SCH (09:29)
[2021-01-09] MEDS: PANTOPRAZOLE 20 MG TABLET PO SCH (09:29)
[2021-01-09] MEDS: LISINOPRIL 20 MG TABLET PO SCH (09:29)
[2021-01-09] MEDS: TOPIRAMATE 100 MG TABLET PO SCH ×2 (09:30→22:57)
[2021-01-09] MEDS ORDERED: predniSONE 20 MG TABLET (UD) PO SCH (10:00)
[2021-01-09] MEDS ORDERED: methylPREDNISolone NA SUCC 40 MG/1 ML VIAL IVPUSH SCH (10:00)
[2021-01-09] MEDS ORDERED: TIOTROPIUM BROMIDE 2.5 MCG (SPIRIVA) RESPIMAT INHALER IH SCH (10:00)
[2021-01-09 12:45] LABS: URINE APPEARANCE CLEAR; URINE BILIRUBIN NEGATIVE (NEGATIVE); URINE COLOR YELLOW; URINE GLUCOSE (UA) 3+ (NEGATIVE); URINE KETONE NEGATIVE (NEGATIVE); URINE LEUK ESTERASE NEGATIVE (NEGATIVE); URINE NITRITE NEGATIVE (NEGATIVE); URINE PROTEIN NEGATIVE (NEGATIVE)
[2021-01-09] MEDS: ATORVASTATIN CA 20 MG TABLET (FP) PO SCH (21:55)
[2021-01-09] MEDS: PRAMIPEXOLE DIHYDROCHLORIDE 0.5 MG TABLET PO SCH (21:55)
[2021-01-10] MEDS ORDERED: INSULIN (NOVOLOG) ASPART 100 UNITS/ML 10ML VIAL SQ ONE (00:31)
[2021-01-10] MEDS: methylPREDNISolone NA SUCC 40 MG/1 ML VIAL IVPUSH SCH ×2 (01:15→09:54)
[2021-01-10] MEDS: HEPARIN NA (PORCINE) 5,000 UNITS/ML 1ML VIAL SQ SCH ×2 (01:15→09:54)
[2021-01-10] MEDS: FUROSEMIDE 40 MG/4 ML INJECTABLE VIAL IVPUSH SCH (06:13)
[2021-01-10] MEDS: INSULIN SLIDING SCALE (NOVOLOG) 1 VIAL SQ SCH ×2 (06:13→12:20)
[2021-01-10] MEDS: INSULIN (LEVEMIR) 100 UNITS/ML UNITS SQ SCH (06:13)
[2021-01-10 06:29] VITALS: TEMP 97.7
[2021-01-10 07:21] LABS: BASO % 0.1 % (0-2.0); HEMATOCRIT 38.9 % (32.4-45.2); HEMOGLOBIN 12.6 GM/dL (10.7-15.3); LYMPH % 14.2 % (8-40); MCH 25.9 pg (25.7-33.7); MCHC 32.3 g/dl (32.0-36.0); MEAN CELL VOLUME 80.1 fl (80-96); MEAN PLT VOLUME 8.7 fl (7.5-11.1); MONO % 4.8 % (3.8-10.2); NEUT % 80.9 % (42.8-82.8); PLATELET COUNT 265 10^3/uL (134-434); RBC 4.85 M/mm3 (3.60-5.2); RDW 14.2 % (11.6-15.6); WHITE BLOOD COUNT 12.1 K/mm3 (4.0-10.0)
[2021-01-10 07:43] LABS: ALBUMIN 3.1 g/dl (3.4-5.0); CALCIUM 9.4 mg/dL (8.5-10.1)
[2021-01-10 07:44] LABS: BLOOD UREA NITROGEN 25.8 mg/dL (7-18); MAGNESIUM 2.1 mg/dL (1.8-2.4)
[2021-01-10 07:47] LABS: CREATININE 1.1 mg/dL (0.55-1.3); PHOSPHOROUS 3.6 mg/dL (2.5-4.9)
[2021-01-10 07:48] LABS: BILIRUBIN,TOTAL 0.2 mg/dL (0.2-1); TOT PROT 7.2 g/dl (6.4-8.2)
[2021-01-10] MEDS: ALBUTEROL SO4 2.5/IPRATROPIUM 0.5 INH SOL 3 ML VIAL.NEB. NEB SCH ×2 (08:07→11:05)
[2021-01-10] MEDS ORDERED: INSULIN (LEVEMIR) 100 UNITS/ML UNITS SQ SCH (08:22)
[2021-01-10 08:34] VITALS: BP 148/85; PULSE 82
[2021-01-10] MEDS: LISINOPRIL 20 MG TABLET PO SCH (09:55)
[2021-01-10] MEDS: PANTOPRAZOLE 20 MG TABLET PO SCH (09:56)
[2021-01-10] MEDS: NICOTINE 14 MG/24 HOURS TOPICAL PATCH TD SCH (09:56)
[2021-01-10] MEDS: TOPIRAMATE 100 MG TABLET PO SCH (10:25)
== END 2021-01-10 13:05 | disposition home or self-care (01) | DRG 194 ==
LOC: JER 06:14 → JERBED 11:54 → J4W 01-09 00:59
DX: I11.0 Hypertensive heart disease with heart failure (principal); J44.1 Chronic obstructive pulmonary disease with (acute) exacerbation; J96.21 Acute and chronic respiratory failure with hypoxia; I50.33 Acute on chronic diastolic (congestive) heart failure; E78.5 Hyperlipidemia, unspecified; G47.33 Obstructive sleep apnea (adult) (pediatric); E11.65 Type 2 diabetes mellitus with hyperglycemia; E66.01 Morbid (severe) obesity due to excess calories; Z68.43 Body mass index [BMI] 50.0-59.9, adult; F17.210 Nicotine dependence, cigarettes, uncomplicated; R60.0 Localized edema; M35.1 Other overlap syndromes; R07.89 Other chest pain; R94.31 Abnormal electrocardiogram [ECG] [EKG]; G43.909 Migraine, unspecified, not intractable, without status migrainosus; G25.81 Restless legs syndrome; Z71.89 Other specified counseling
CPT/HCPCS: 36415; 71045-TC-FY; 80053; 81003; 82550; 82553; 82962; 83735; 83880; 84100; 84484; 85025; 85610; 85730; 87804; 87807; 93005; 93010; 93306-TC; 94640; 94660; 99285-25; C9803; J1644; U0003; U0005

== ENCOUNTER 2021-02-17 15:05 | Inpatient (IN) | payer OTHER ==
[2021-02-17] MEDS ORDERED: ALBUTEROL SO4 2.5/IPRATROPIUM 0.5 INH SOL 3 ML VIAL.NEB. NEB ONE ×3 (15:27→19:26)
[2021-02-17 16:01] LABS: BASO % 0.5 % (0-2.0); EOS % 1.2 % (0-4.5); LYMPH % 39.6 % (8-40); MCH 26.2 pg (25.7-33.7); MCHC 32.5 g/dl (32.0-36.0); MEAN CELL VOLUME 80.7 fl (80-96); MEAN PLT VOLUME 9.1 fl (7.5-11.1); MONO % 5.2 % (3.8-10.2); NEUT % 53.5 % (42.8-82.8); PLATELET COUNT 214 10^3/uL (134-434); RBC 4.95 M/mm3 (3.60-5.2); RDW 14.8 % (11.6-15.6); WHITE BLOOD COUNT 8.9 K/mm3 (4.0-10.0)
[2021-02-17] MEDS ORDERED: methylPREDNISolone NA SUCC 125 MG/2 ML VIAL IVPUSH ONE (16:07)
[2021-02-17] MEDS ORDERED: MAGNESIUM SULF 50% (8.12 MEQ/2 ML-1 GM VIAL) IVPB ONE (16:08)
[2021-02-17 16:12] LABS: INR 0.99 (0.83-1.09); PROTHROMBIN TIME (PATIENT) 11.1 SEC (9.7-13.0)
[2021-02-17 16:14] LABS: ACTIVATED PTT 25.6 SECONDS (25.2-36.5)
[2021-02-17] MEDS ORDERED: MAGNESIUM SULFATE IN WATER 2 GM/50 ML IVPB IVPB ONE (16:19)
[2021-02-17] MEDS ORDERED: methylPREDNISolone NA SUCC 125 MG/2 ML VIAL ONE (16:21)
[2021-02-17 16:46] LABS: CHLORIDE 109 mmol/L (98-107); SODIUM 141 mmol/L (136-145)
[2021-02-17 16:49] LABS: ALBUMIN 2.9 g/dl (3.4-5.0); ANION GAP 7 MMOL/L (8-16); BLOOD UREA NITROGEN 13.8 mg/dL (7-18); CALCIUM 8.6 mg/dL (8.5-10.1); CO2 25 mmol/L (21-32); GLUCOSE,RANDOM 314 mg/dL (74-106); MAGNESIUM 1.9 mg/dL (1.8-2.4)
[2021-02-17 16:52] LABS: CREATININE 0.9 mg/dL (0.55-1.3); SGOT/AST 27 U/L (15-37); SGPT/ALT 34 U/L (13-61)
[2021-02-17 16:54] LABS: BILIRUBIN,TOTAL 0.3 mg/dL (0.2-1); TOT PROT 6.7 g/dl (6.4-8.2)
[2021-02-17 16:55] LABS: ALK PHOS 113 U/L (45-117)
[2021-02-17 16:57] LABS: N-TERMINAL BNP 493.6 pg/ml (5-125)
[2021-02-17 17:46] LABS: VENOUS BASE EXCESS -2.6 mmol/L (-2-2); VENOUS O2 SATURATION 85.5 % (70-80); VENOUS PCO2 53.4 mmHg (38-52); VENOUS PH 7.284 (7.310-7.410)
[2021-02-17] MEDS ORDERED: ALBUTEROL SO4 0.083% IH SOL 2.5 MG/3 ML VIAL.NEB. NEB PRN (17:48)
[2021-02-17] MEDS ORDERED: DOXYCYCLINE HYCLATE 100 MG VIAL ONE (19:27)
[2021-02-17] MEDS: ALBUTEROL SO4 2.5/IPRATROPIUM 0.5 INH SOL 3 ML VIAL.NEB. NEB SCH (19:50)
[2021-02-17] MEDS: DOXYCYCLINE INJECTION 100 MG in DEXTROSE 5%-WATER 100 ML IVPB SCH (19:50)
[2021-02-17] MEDS: INSULIN SLIDING SCALE (NOVOLOG) 1 VIAL SQ SCH (21:48)
[2021-02-17] MEDS: INSULIN (LEVEMIR) 100 UNITS/ML UNITS SQ SCH (21:49)
[2021-02-18] MEDS: methylPREDNISolone NA SUCC 40 MG/1 ML VIAL IVPUSH SCH ×3 (01:30→17:32)
[2021-02-18] MEDS ORDERED: DEXTROSE 5%-WATER 100 ML IVPB ONE ×2 (06:28→17:30)
[2021-02-18] MEDS ORDERED: DOXYCYCLINE HYCLATE 100 MG VIAL ONE ×2 (06:28→17:29)
[2021-02-18] MEDS: DOXYCYCLINE INJECTION 100 MG in DEXTROSE 5%-WATER 100 ML IVPB SCH ×2 (06:30→18:35)
[2021-02-18] MEDS: INSULIN (LEVEMIR) 100 UNITS/ML UNITS SQ SCH (06:49)
[2021-02-18] MEDS: INSULIN SLIDING SCALE (NOVOLOG) 1 VIAL SQ SCH ×4 (06:50→21:20)
[2021-02-18] MEDS ORDERED: BUDESONIDE/FORMETEROL FUMARATE 160/4.5 mcg INHALER IH PRN (08:18)
[2021-02-18] MEDS ORDERED: PT OWN MED DRAWER 7, Y5N ONE (09:28)
[2021-02-18] MEDS: BUDESONIDE/FORMETEROL FUMARATE 160/4.5 mcg INHALER IH SCH ×3 (09:30→21:28)
[2021-02-18] MEDS: ENOXAPARIN NA (PORCINE) 40 MG/0.4 ML DISP.SYRIN SQ SCH (09:31)
[2021-02-18] MEDS: FUROSEMIDE 20 MG TABLET (FP) PO SCH ×2 (09:31→14:31)
[2021-02-18] MEDS: NICOTINE 14 MG/24 HOURS TOPICAL PATCH TD SCH (09:31)
[2021-02-18 09:38] LABS: CALCIUM 9.4 mg/dL (8.5-10.1); CHLORIDE 106 mmol/L (98-107); SODIUM 137 mmol/L (136-145)
[2021-02-18 09:39] LABS: ANION GAP 8 MMOL/L (8-16); BLOOD UREA NITROGEN 18.3 mg/dL (7-18); CO2 23 mmol/L (21-32); MAGNESIUM 2.3 mg/dL (1.8-2.4)
[2021-02-18 09:42] LABS: CREATININE 1.1 mg/dL (0.55-1.3)
[2021-02-18 09:43] LABS: GLUCOSE,RANDOM 406 mg/dL (74-106)
[2021-02-18] MEDS: LISINOPRIL 20 MG TABLET PO SCH (09:47)
[2021-02-18] MEDS: ALBUTEROL SO4 2.5/IPRATROPIUM 0.5 INH SOL 3 ML VIAL.NEB. NEB SCH ×4 (10:32→20:41)
[2021-02-18] MEDS ORDERED: INSULIN (LEVEMIR) 100 UNITS/ML UNITS SQ ONE (10:45)
[2021-02-18] MEDS: TIOTROPIUM BROMIDE 2.5 MCG (SPIRIVA) RESPIMAT INHALER IH SCH (11:38)
[2021-02-18] MEDS ORDERED: Insulin (LOG) Aspart 100 UNITS/ML VIAL SQ ONE (15:28)
[2021-02-18] MEDS ORDERED: BUDESONIDE/FORMETEROL FUMARATE 160/4.5 mcg INHALER IH SCH (22:00)
[2021-02-18] MEDS ORDERED: INSULIN (LEVEMIR) 100 UNITS/ML UNITS SQ SCH (22:00)
[2021-02-19] MEDS: methylPREDNISolone NA SUCC 40 MG/1 ML VIAL IVPUSH SCH ×4 (01:24→21:32)
[2021-02-19] MEDS: FUROSEMIDE 20 MG TABLET (FP) PO SCH ×2 (06:03→12:59)
[2021-02-19] MEDS ORDERED: DEXTROSE 5%-WATER 100 ML IVPB ONE ×2 (06:13→17:20)
[2021-02-19] MEDS ORDERED: DOXYCYCLINE HYCLATE 100 MG VIAL ONE ×2 (06:13→17:20)
[2021-02-19] MEDS: DOXYCYCLINE INJECTION 100 MG in DEXTROSE 5%-WATER 100 ML IVPB SCH ×2 (06:15→18:02)
[2021-02-19] MEDS: INSULIN SLIDING SCALE (NOVOLOG) 1 VIAL SQ SCH ×4 (06:25→21:33)
[2021-02-19] MEDS ORDERED: INSULIN (LEVEMIR) 100 UNITS/ML UNITS SQ SCH ×3 (07:00→21:00)
[2021-02-19] MEDS: ALBUTEROL SO4 2.5/IPRATROPIUM 0.5 INH SOL 3 ML VIAL.NEB. NEB SCH (09:00)
[2021-02-19 10:04] LABS: CHLORIDE 103 mmol/L (98-107); SODIUM 137 mmol/L (136-145)
[2021-02-19] MEDS ORDERED: INSULIN (LEVEMIR) 100 UNITS/ML UNITS SQ ONE (10:11)
[2021-02-19] MEDS ORDERED: PT OWN MED DRAWER 7, Y5N ONE ×3 (10:19→21:22)
[2021-02-19 10:25] LABS: ANION GAP 10 MMOL/L (8-16); CO2 24 mmol/L (21-32)
[2021-02-19 10:27] LABS: BLOOD UREA NITROGEN 22.4 mg/dL (7-18); CALCIUM 9.3 mg/dL (8.5-10.1)
[2021-02-19] MEDS: ENOXAPARIN NA (PORCINE) 40 MG/0.4 ML DISP.SYRIN SQ SCH (10:27)
[2021-02-19] MEDS: NICOTINE 14 MG/24 HOURS TOPICAL PATCH TD SCH (10:27)
[2021-02-19] MEDS: LISINOPRIL 20 MG TABLET PO SCH (10:28)
[2021-02-19] MEDS: THEOPHYLLINE ANHYDROUS 100 MG CAP.ER.24H PO SCH (10:28)
[2021-02-19 10:39] LABS: GLUCOSE,RANDOM 447 mg/dL (74-106)
[2021-02-19] MEDS ORDERED: INSULIN (NOVOLOG) ASPART 100 UNITS/ML 10ML VIAL SQ ONE (10:45)
[2021-02-19] MEDS ORDERED: INSULIN (NOVOLOG) ASPART 100 UNITS/ML 10ML VIAL ONE (10:47)
[2021-02-19] MEDS: BUDESONIDE/FORMETEROL FUMARATE 160/4.5 mcg INHALER IH SCH ×2 (10:51→21:32)
[2021-02-19] MEDS: TIOTROPIUM BROMIDE 2.5 MCG (SPIRIVA) RESPIMAT INHALER IH SCH (10:51)
[2021-02-19] MEDS: guaiFENesin/D-METHORPHAN TAB.ER.12H PO SCH ×2 (12:52→21:32)
[2021-02-20] MEDS ORDERED: DOXYCYCLINE HYCLATE 100 MG VIAL ONE (06:01)
[2021-02-20] MEDS ORDERED: DEXTROSE 5%-WATER 100 ML IVPB ONE (06:01)
[2021-02-20] MEDS: FUROSEMIDE 20 MG TABLET (FP) PO SCH ×2 (06:41→13:44)
[2021-02-20] MEDS: INSULIN SLIDING SCALE (NOVOLOG) 1 VIAL SQ SCH ×3 (06:42→16:27)
[2021-02-20] MEDS: DOXYCYCLINE INJECTION 100 MG in DEXTROSE 5%-WATER 100 ML IVPB SCH (06:42)
[2021-02-20] MEDS ORDERED: INSULIN (LEVEMIR) 100 UNITS/ML UNITS SQ SCH (07:00)
[2021-02-20] MEDS ORDERED: PT OWN MED DRAWER 7, Y5N ONE (09:45)
[2021-02-20] MEDS: guaiFENesin/D-METHORPHAN TAB.ER.12H PO SCH (09:50)
[2021-02-20] MEDS: ENOXAPARIN NA (PORCINE) 40 MG/0.4 ML DISP.SYRIN SQ SCH (09:50)
[2021-02-20] MEDS: LISINOPRIL 20 MG TABLET PO SCH (09:50)
[2021-02-20] MEDS: BUDESONIDE/FORMETEROL FUMARATE 160/4.5 mcg INHALER IH SCH (09:50)
[2021-02-20] MEDS: THEOPHYLLINE ANHYDROUS 100 MG CAP.ER.24H PO SCH (09:50)
[2021-02-20] MEDS: methylPREDNISolone NA SUCC 40 MG/1 ML VIAL IVPUSH SCH (09:50)
[2021-02-20] MEDS: NICOTINE 14 MG/24 HOURS TOPICAL PATCH TD SCH (09:50)
[2021-02-20] MEDS: TIOTROPIUM BROMIDE 2.5 MCG (SPIRIVA) RESPIMAT INHALER IH SCH (09:51)
[2021-02-20 10:41] VITALS: BMI 55.3
[2021-02-20] MEDS ORDERED: ALBUTEROL SO4 0.083% IH SOL 2.5 MG/3 ML VIAL.NEB. NEB SCH ×2 (11:30→14:00)
[2021-02-20] MEDS ORDERED: FAMOTIDINE 20 MG TABLET PO SCH (13:15)
[2021-02-20 14:21] VITALS: BP 152/100; PULSE 91; TEMP 98.8
== END 2021-02-20 18:20 | disposition home or self-care (01) | DRG 140 ==
LOC: JER 15:05 → JERBED 16:08 → J6S 21:27
PROVIDERS: ADMIT Internal Medicine; ATTEND Internal Medicine
DX: J44.1 Chronic obstructive pulmonary disease with (acute) exacerbation (principal); E66.01 Morbid (severe) obesity due to excess calories; Z68.43 Body mass index [BMI] 50.0-59.9, adult; F17.210 Nicotine dependence, cigarettes, uncomplicated; E11.9 Type 2 diabetes mellitus without complications; G47.33 Obstructive sleep apnea (adult) (pediatric); J96.02 Acute respiratory failure with hypercapnia; I50.32 Chronic diastolic (congestive) heart failure; Z91.19 Patient's noncompliance with other medical treatment and regimen
CPT/HCPCS: 36415; 71045-TC-FY; 80048; 80053; 82803; 82962; 83036; 83735; 83880; 84132; 84484; 85025; 85610; 85730; 87804; 93005; 93010; 94640; 94761; 97116-GP; 97162-GP; 99285-25; C9803; U0003; U0005

== ENCOUNTER 2021-06-29 11:02 | Inpatient (IN) | payer OTHER ==
[2021-06-29] MEDS ORDERED: ALBUTEROL SO4 2.5/IPRATROPIUM 0.5 INH SOL 3 ML VIAL.NEB. NEB ONE ×2 (12:16→12:27)
[2021-06-29] MEDS ORDERED: DEXAMETHASONE SOD PHOSPHATE 10 MG/1 ML VIAL IVPUSH ONE (12:16)
[2021-06-29] MEDS ORDERED: DEXAMETHASONE SOD PHOSPHATE 10 MG/1 ML VIAL ONE (12:27)
[2021-06-29] MEDS ORDERED: AZITHROMYCIN 250 MG TABLET PO ONE (13:23)
[2021-06-29] MEDS ORDERED: AZITHROMYCIN 250 MG TABLET ONE (13:34)
[2021-06-29 14:05] LABS: BASO % 0.6 % (0-2.0); EOS % 0.6 % (0-4.5); HEMATOCRIT 41.5 % (32.4-45.2); HEMOGLOBIN 13.2 GM/dL (10.7-15.3); LYMPH % 25.3 % (8-40); MCH 25.8 pg (25.7-33.7); MCHC 31.9 g/dl (32.0-36.0); MEAN CELL VOLUME 80.9 fl (80-96); MEAN PLT VOLUME 8.2 fl (7.5-11.1); MONO % 6.8 % (3.8-10.2); NEUT % 66.7 % (42.8-82.8); PLATELET COUNT 220 10^3/uL (134-434); RBC 5.13 M/mm3 (3.60-5.2); RDW 14.2 % (11.6-15.6); WHITE BLOOD COUNT 6.5 K/mm3 (4.0-10.0)
[2021-06-29 14:29] LABS: VENOUS BASE EXCESS -3.5 mmol/L (-2-2); VENOUS O2 SATURATION 78.7 % (70-80); VENOUS PCO2 44.7 mmHg (38-52); VENOUS PH 7.322 (7.310-7.410)
[2021-06-29 14:31] LABS: CHLORIDE 104 mmol/L (98-107); SODIUM 137 mmol/L (136-145)
[2021-06-29 14:33] LABS: CALCIUM 8.5 mg/dL (8.5-10.1)
[2021-06-29 14:34] LABS: ALBUMIN 3.1 g/dl (3.4-5.0); ANION GAP 8 MMOL/L (8-16); BLOOD UREA NITROGEN 10.4 mg/dL (7-18); CO2 24 mmol/L (21-32); GLUCOSE,RANDOM 260 mg/dL (74-106)
[2021-06-29 14:37] LABS: SGOT/AST 17 U/L (15-37); SGPT/ALT 29 U/L (13-61)
[2021-06-29 14:38] LABS: BILIRUBIN,TOTAL 0.4 mg/dL (0.2-1); TOT PROT 6.9 g/dl (6.4-8.2)
[2021-06-29 14:40] LABS: ALK PHOS 120 U/L (45-117)
[2021-06-29 14:42] LABS: N-TERMINAL BNP 555.6 pg/ml (5-125)
[2021-06-29] MEDS ORDERED: ALBUTEROL SO4 0.083% IH SOL 2.5 MG/3 ML VIAL.NEB. NEB PRN (17:12)
[2021-06-29] MEDS ORDERED: methylPREDNISolone NA SUCC 40 MG/1 ML VIAL ONE (18:34)
[2021-06-29] MEDS ORDERED: CEFTRIAXONE 1 GM/50 ML BAG ONE (18:34)
[2021-06-29] MEDS: CEFTRIAXONE 1 GM in DEXTROSE 5%-WATER - 50 ML IVPB SCH (18:40)
[2021-06-29] MEDS: methylPREDNISolone NA SUCC 40 MG/1 ML VIAL IVPUSH SCH (18:40)
[2021-06-29] MEDS: ALBUTEROL SO4 2.5/IPRATROPIUM 0.5 INH SOL 3 ML VIAL.NEB. NEB SCH (19:38)
[2021-06-29] MEDS ORDERED: DOXYCYCLINE HYCLATE 100 MG VIAL ONE ×2 (20:55→22:45)
[2021-06-29] MEDS ORDERED: ATORVASTATIN CA 40 MG TABLET (FP) ONE (20:55)
[2021-06-29] MEDS ORDERED: INSULIN (LEVEMIR) 100 UNITS/ML UNITS SQ ONE (20:56)
[2021-06-29] MEDS ORDERED: INSULIN (LEVEMIR) 100 UNITS/ML UNITS SQ SCH (22:00)
[2021-06-29] MEDS ORDERED: DEXTROSE 5%-WATER 100 ML IVPB ONE (22:45)
[2021-06-29] MEDS: PRAMIPEXOLE DIHYDROCHLORIDE 0.5 MG TABLET PO SCH (22:57)
[2021-06-29] MEDS: ATORVASTATIN CA 40 MG TABLET (FP) PO SCH (22:57)
[2021-06-29] MEDS: DOXYCYCLINE INJECTION 100 MG in DEXTROSE 5%-WATER 100 ML IVPB SCH (22:58)
[2021-06-29] MEDS: INSULIN (LEVEMIR) 100 UNITS/ML UNITS SQ SCH (23:01)
[2021-06-29] MEDS: INSULIN SLIDING SCALE (NOVOLOG) 1 VIAL SQ SCH (23:02)
[2021-06-30] MEDS: BUDESONIDE/FORMETEROL FUMARATE 160/4.5 mcg INHALER IH SCH ×2 (01:26→10:09)
[2021-06-30] MEDS: methylPREDNISolone NA SUCC 40 MG/1 ML VIAL IVPUSH SCH ×3 (01:27→17:34)
[2021-06-30] MEDS: INSULIN SLIDING SCALE (NOVOLOG) 1 VIAL SQ SCH ×4 (06:39→21:46)
[2021-06-30] MEDS: FUROSEMIDE 40 MG/4 ML INJECTABLE VIAL IVPUSH SCH ×2 (06:39→14:43)
[2021-06-30] MEDS: INSULIN (LEVEMIR) 100 UNITS/ML UNITS SQ SCH ×2 (06:39→21:46)
[2021-06-30] MEDS: ALBUTEROL SO4 2.5/IPRATROPIUM 0.5 INH SOL 3 ML VIAL.NEB. NEB SCH ×2 (08:50→12:03)
[2021-06-30] MEDS ORDERED: DOXYCYCLINE HYCLATE 100 MG VIAL ONE ×2 (09:56→21:06)
[2021-06-30] MEDS ORDERED: DEXTROSE 5%-WATER - 50 ML IVPB ONE (09:57)
[2021-06-30] MEDS ORDERED: DEXTROSE 5%-WATER 100 ML IVPB ONE ×2 (09:57→21:07)
[2021-06-30] MEDS ORDERED: cefTRIAXone SODIUM 1 GM VIAL ONE (09:57)
[2021-06-30] MEDS ORDERED: AZITHROMYCIN IVPB 500 MG in DEXTROSE 5%-WATER - 250 ML IVPB SCH (10:00)
[2021-06-30] MEDS ORDERED: PATIENT'S OWN MEDICATION (NON-FORMULARY) (Lisinopril [Lisinopril] 40 MG Tablet) PO SCH (10:00)
[2021-06-30] MEDS: DOXYCYCLINE INJECTION 100 MG in DEXTROSE 5%-WATER 100 ML IVPB SCH ×2 (10:08→21:27)
[2021-06-30] MEDS: CEFTRIAXONE 1 GM in DEXTROSE 5%-WATER - 50 ML IVPB SCH (10:08)
[2021-06-30] MEDS: LISINOPRIL 20 MG TABLET PO SCH (10:09)
[2021-06-30 13:17] LABS: HEMATOCRIT 40.4 % (32.4-45.2); HEMOGLOBIN 12.8 GM/dL (10.7-15.3); MCH 25.8 pg (25.7-33.7); MCHC 31.6 g/dl (32.0-36.0); MEAN CELL VOLUME 81.7 fl (80-96); MEAN PLT VOLUME 8.7 fl (7.5-11.1); PLATELET COUNT 236 10^3/uL (134-434); RBC 4.94 M/mm3 (3.60-5.2); RDW 14.5 % (11.6-15.6); WHITE BLOOD COUNT 5.3 K/mm3 (4.0-10.0)
[2021-06-30 13:40] LABS: CHLORIDE 102 mmol/L (98-107); SODIUM 136 mmol/L (136-145)
[2021-06-30 13:42] LABS: CALCIUM 8.5 mg/dL (8.5-10.1)
[2021-06-30 13:43] LABS: ANION GAP 11 MMOL/L (8-16); BLOOD UREA NITROGEN 16.2 mg/dL (7-18); CO2 24 mmol/L (21-32)
[2021-06-30 13:46] LABS: CREATININE 1.2 mg/dL (0.55-1.3)
[2021-06-30 13:52] LABS: GLUCOSE,RANDOM 506 mg/dL (74-106)
[2021-06-30] MEDS: ATORVASTATIN CA 40 MG TABLET (FP) PO SCH (21:28)
[2021-06-30] MEDS: PRAMIPEXOLE DIHYDROCHLORIDE 0.5 MG TABLET PO SCH (21:28)
[2021-07-01] MEDS: ALBUTEROL SO4 0.083% IH SOL 2.5 MG/3 ML VIAL.NEB. NEB PRN (01:03)
[2021-07-01] MEDS: BUDESONIDE/FORMETEROL FUMARATE 160/4.5 mcg INHALER IH SCH (02:52)
[2021-07-01] MEDS: methylPREDNISolone NA SUCC 40 MG/1 ML VIAL IVPUSH SCH ×5 (02:52→22:28)
[2021-07-01] MEDS: guaiFENesin 200 MG/10 ML 10 ML UNIT-DOSE CUPS PO PRN ×3 (02:56→22:30)
[2021-07-01] MEDS: INSULIN SLIDING SCALE (NOVOLOG) 1 VIAL SQ SCH ×3 (06:35→22:30)
[2021-07-01] MEDS: INSULIN (LEVEMIR) 100 UNITS/ML UNITS SQ SCH ×2 (06:37→22:28)
[2021-07-01 07:17] LABS: BASO % 0.1 % (0-2.0); HEMATOCRIT 40.4 % (32.4-45.2); HEMOGLOBIN 12.6 GM/dL (10.7-15.3); LYMPH % 13.4 % (8-40); MCH 25.7 pg (25.7-33.7); MCHC 31.3 g/dl (32.0-36.0); MEAN CELL VOLUME 81.9 fl (80-96); MEAN PLT VOLUME 8.5 fl (7.5-11.1); MONO % 7.4 % (3.8-10.2); NEUT % 79.1 % (42.8-82.8); PLATELET COUNT 236 10^3/uL (134-434); RBC 4.93 M/mm3 (3.60-5.2); RDW 14.5 % (11.6-15.6); WHITE BLOOD COUNT 8.5 K/mm3 (4.0-10.0)
[2021-07-01 07:43] LABS: CHLORIDE 104 mmol/L (98-107); SODIUM 138 mmol/L (136-145)
[2021-07-01 07:53] LABS: ANION GAP 8 MMOL/L (8-16); CALCIUM 8.9 mg/dL (8.5-10.1); CO2 26 mmol/L (21-32); MAGNESIUM 2.3 mg/dL (1.8-2.4)
[2021-07-01 07:55] LABS: CREATININE 1.1 mg/dL (0.55-1.3); SGPT/ALT 31 U/L (13-61)
[2021-07-01 07:56] LABS: SGOT/AST 18 U/L (15-37)
[2021-07-01 07:57] LABS: BILIRUBIN,TOTAL 0.3 mg/dL (0.2-1); TOT PROT 7.1 g/dl (6.4-8.2)
[2021-07-01 07:58] LABS: ALK PHOS 110 U/L (45-117)
[2021-07-01 08:02] LABS: GLUCOSE,RANDOM 434 mg/dL (74-106)
[2021-07-01] MEDS ORDERED: DEXTROSE 5%-WATER 100 ML IVPB ONE ×2 (08:58→21:46)
[2021-07-01] MEDS ORDERED: cefTRIAXone SODIUM 1 GM VIAL ONE (08:58)
[2021-07-01] MEDS ORDERED: DOXYCYCLINE HYCLATE 100 MG VIAL ONE ×2 (08:58→21:46)
[2021-07-01] MEDS: LISINOPRIL 20 MG TABLET PO SCH (09:36)
[2021-07-01] MEDS: DOXYCYCLINE INJECTION 100 MG in DEXTROSE 5%-WATER 100 ML IVPB SCH ×2 (09:36→22:29)
[2021-07-01] MEDS: FLUTICASONE/UMECLIDIN/VILANTER(200-62.5-25 TRELEGY ELLIPTA) INAHLER IH SCH (09:36)
[2021-07-01] MEDS ORDERED: PANTOPRAZOLE 40 MG TABLET PO ONE (09:54)
[2021-07-01] MEDS ORDERED: INSULIN SLIDING SCALE (NOVOLOG) 1 VIAL SQ SCH (09:58)
[2021-07-01] MEDS ORDERED: MELATONIN 5 MG TABLETS PO PRN (10:00)
[2021-07-01] MEDS ORDERED: methylPREDNISolone NA SUCC 40 MG/1 ML VIAL IVPUSH ONE (10:02)
[2021-07-01] MEDS: CEFTRIAXONE 1 GM in DEXTROSE 5%-WATER - 50 ML IVPB SCH (11:08)
[2021-07-01] MEDS: NICOTINE 21 MG/24 HOURS TOPICAL PATCH TD SCH (11:08)
[2021-07-01] MEDS: FUROSEMIDE 20 MG TABLET (FP) PO SCH (16:03)
[2021-07-01] MEDS: glipiZIDE-XL 10 MG TAB.ER.24 (FP) PO SCH (16:04)
[2021-07-01] MEDS ORDERED: INSULIN (NOVOLOG MIX 70/30) 100 UNITS/ML MDV SQ ONE ×2 (18:41→18:46)
[2021-07-01] MEDS: ATORVASTATIN CA 40 MG TABLET (FP) PO SCH (22:28)
[2021-07-01] MEDS: PRAMIPEXOLE DIHYDROCHLORIDE 0.5 MG TABLET PO SCH (22:28)
[2021-07-02] MEDS: methylPREDNISolone NA SUCC 40 MG/1 ML VIAL IVPUSH SCH ×4 (03:15→21:46)
[2021-07-02] MEDS: FUROSEMIDE 20 MG TABLET (FP) PO SCH ×2 (05:56→13:39)
[2021-07-02] MEDS: guaiFENesin 200 MG/10 ML 10 ML UNIT-DOSE CUPS PO PRN (05:57)
[2021-07-02] MEDS: glipiZIDE-XL 10 MG TAB.ER.24 (FP) PO SCH (06:00)
[2021-07-02] MEDS: INSULIN SLIDING SCALE (NOVOLOG) 1 VIAL SQ SCH ×4 (06:00→21:53)
[2021-07-02] MEDS: INSULIN (LEVEMIR) 100 UNITS/ML UNITS SQ SCH ×2 (06:01→21:47)
[2021-07-02 06:08] LABS: SARS-CoV-2 NAA Not Detected (Not Detected)
[2021-07-02 06:58] LABS: BASO % 0.1 % (0-2.0); HEMATOCRIT 38.9 % (32.4-45.2); HEMOGLOBIN 12.6 GM/dL (10.7-15.3); LYMPH % 16.3 % (8-40); MCH 26.4 pg (25.7-33.7); MCHC 32.4 g/dl (32.0-36.0); MEAN CELL VOLUME 81.6 fl (80-96); MEAN PLT VOLUME 8.3 fl (7.5-11.1); MONO % 3.4 % (3.8-10.2); NEUT % 80.2 % (42.8-82.8); PLATELET COUNT 219 10^3/uL (134-434); RBC 4.77 M/mm3 (3.60-5.2); RDW 14.6 % (11.6-15.6); WHITE BLOOD COUNT 7.7 K/mm3 (4.0-10.0)
[2021-07-02] MEDS ORDERED: INSULIN (NOVOLOG MIX 70/30) 100 UNITS/ML MDV SQ SCH (07:00)
[2021-07-02 07:05] LABS: CHLORIDE 103 mmol/L (98-107); SODIUM 138 mmol/L (136-145)
[2021-07-02 07:11] LABS: ANION GAP 8 MMOL/L (8-16); BLOOD UREA NITROGEN 21.3 mg/dL (7-18); CALCIUM 8.7 mg/dL (8.5-10.1); CO2 27 mmol/L (21-32)
[2021-07-02 07:12] LABS: ALBUMIN 2.9 g/dl (3.4-5.0)
[2021-07-02 07:14] LABS: SGPT/ALT 45 U/L (13-61)
[2021-07-02 07:15] LABS: BILIRUBIN,TOTAL 0.3 mg/dL (0.2-1); CREATININE 1.1 mg/dL (0.55-1.3); MAGNESIUM 2.1 mg/dL (1.8-2.4); SGOT/AST 27 U/L (15-37)
[2021-07-02 07:17] LABS: ALK PHOS 106 U/L (45-117)
[2021-07-02 07:26] LABS: GLUCOSE,RANDOM 421 mg/dL (74-106)
[2021-07-02] MEDS ORDERED: cefTRIAXone SODIUM 1 GM VIAL ONE (09:11)
[2021-07-02] MEDS ORDERED: DOXYCYCLINE HYCLATE 100 MG VIAL ONE ×2 (09:11→20:36)
[2021-07-02] MEDS ORDERED: DEXTROSE 5%-WATER 100 ML IVPB ONE ×2 (09:11→20:36)
[2021-07-02] MEDS: NICOTINE 21 MG/24 HOURS TOPICAL PATCH TD SCH (09:31)
[2021-07-02] MEDS: PANTOPRAZOLE 40 MG TABLET PO SCH (09:31)
[2021-07-02] MEDS: LISINOPRIL 20 MG TABLET PO SCH (09:31)
[2021-07-02] MEDS: CEFTRIAXONE 1 GM in DEXTROSE 5%-WATER - 50 ML IVPB SCH (09:40)
[2021-07-02] MEDS: FLUTICASONE/UMECLIDIN/VILANTER(200-62.5-25 TRELEGY ELLIPTA) INAHLER IH SCH (09:46)
[2021-07-02] MEDS: DOXYCYCLINE INJECTION 100 MG in DEXTROSE 5%-WATER 100 ML IVPB SCH ×2 (09:47→21:54)
[2021-07-02] MEDS: ALBUTEROL SO4 0.083% IH SOL 2.5 MG/3 ML VIAL.NEB. NEB PRN (11:05)
[2021-07-02] MEDS ORDERED: Insulin (LOG) Aspart 100 UNITS/ML VIAL SQ ONE (12:24)
[2021-07-02] MEDS ORDERED: ENOXAPARIN NA (PORCINE) 40 MG/0.4 ML DISP.SYRIN SQ SCH (15:15)
[2021-07-02] MEDS: INSULIN (NOVOLOG MIX 70/30) 100 UNITS/ML MDV SQ SCH (16:40)
[2021-07-02] MEDS: PRAMIPEXOLE DIHYDROCHLORIDE 0.5 MG TABLET PO SCH (21:47)
[2021-07-02] MEDS: ATORVASTATIN CA 40 MG TABLET (FP) PO SCH (21:47)
[2021-07-02] MEDS: ENOXAPARIN NA (PORCINE) 40 MG/0.4 ML DISP.SYRIN SQ SCH (21:53)
[2021-07-02] MEDS: MELATONIN 5 MG TABLETS PO SCH (22:48)
[2021-07-03] MEDS: methylPREDNISolone NA SUCC 40 MG/1 ML VIAL IVPUSH SCH ×3 (02:14→17:31)
[2021-07-03] MEDS: FUROSEMIDE 20 MG TABLET (FP) PO SCH ×2 (06:14→13:47)
[2021-07-03] MEDS: glipiZIDE-XL 10 MG TAB.ER.24 (FP) PO SCH (06:24)
[2021-07-03] MEDS: INSULIN (NOVOLOG MIX 70/30) 100 UNITS/ML MDV SQ SCH ×3 (06:24→17:28)
[2021-07-03] MEDS: ALBUTEROL SO4 0.083% IH SOL 2.5 MG/3 ML VIAL.NEB. NEB PRN (06:30)
[2021-07-03] MEDS: INSULIN (LEVEMIR) 100 UNITS/ML UNITS SQ SCH ×2 (06:35→23:20)
[2021-07-03] MEDS: INSULIN SLIDING SCALE (NOVOLOG) 1 VIAL SQ SCH ×4 (06:36→23:06)
[2021-07-03 08:32] LABS: BASO % 0.2 % (0-2.0); HEMATOCRIT 39.5 % (32.4-45.2); HEMOGLOBIN 12.6 GM/dL (10.7-15.3); LYMPH % 19.2 % (8-40); MCH 25.8 pg (25.7-33.7); MCHC 31.9 g/dl (32.0-36.0); MEAN CELL VOLUME 80.8 fl (80-96); MEAN PLT VOLUME 8.7 fl (7.5-11.1); MONO % 5.8 % (3.8-10.2); NEUT % 74.8 % (42.8-82.8); PLATELET COUNT 208 10^3/uL (134-434); RBC 4.88 M/mm3 (3.60-5.2); WHITE BLOOD COUNT 9.4 K/mm3 (4.0-10.0)
[2021-07-03 08:54] LABS: ALBUMIN 2.7 g/dl (3.4-5.0); BLOOD UREA NITROGEN 21.2 mg/dL (7-18)
[2021-07-03 08:56] LABS: BILIRUBIN,TOTAL 0.3 mg/dL (0.2-1); TOT PROT 6.5 g/dl (6.4-8.2)
[2021-07-03 08:57] LABS: CREATININE 0.9 mg/dL (0.55-1.3)
[2021-07-03 08:58] LABS: CALCIUM 8.8 mg/dL (8.5-10.1); MAGNESIUM 2.4 mg/dL (1.8-2.4)
[2021-07-03] MEDS ORDERED: DOXYCYCLINE HYCLATE 100 MG VIAL ONE ×2 (09:14→21:51)
[2021-07-03] MEDS ORDERED: DEXTROSE 5%-WATER 100 ML IVPB ONE ×2 (09:14→21:51)
[2021-07-03] MEDS ORDERED: DEXTROSE 5%-WATER - 50 ML IVPB ONE (09:15)
[2021-07-03] MEDS ORDERED: cefTRIAXone SODIUM 1 GM VIAL ONE (09:15)
[2021-07-03] MEDS: ENOXAPARIN NA (PORCINE) 40 MG/0.4 ML DISP.SYRIN SQ SCH ×2 (09:48→23:06)
[2021-07-03] MEDS: LISINOPRIL 20 MG TABLET PO SCH (09:49)
[2021-07-03] MEDS: NICOTINE 21 MG/24 HOURS TOPICAL PATCH TD SCH (09:49)
[2021-07-03] MEDS: PANTOPRAZOLE 40 MG TABLET PO SCH (09:49)
[2021-07-03] MEDS: CEFTRIAXONE 1 GM in DEXTROSE 5%-WATER - 50 ML IVPB SCH (09:55)
[2021-07-03] MEDS: DOXYCYCLINE INJECTION 100 MG in DEXTROSE 5%-WATER 100 ML IVPB SCH ×2 (09:57→23:06)
[2021-07-03] MEDS: FLUTICASONE/UMECLIDIN/VILANTER(200-62.5-25 TRELEGY ELLIPTA) INAHLER IH SCH (09:59)
[2021-07-03] MEDS: MELATONIN 5 MG TABLETS PO SCH (23:05)
[2021-07-03] MEDS: PRAMIPEXOLE DIHYDROCHLORIDE 0.5 MG TABLET PO SCH (23:05)
[2021-07-03] MEDS: ATORVASTATIN CA 40 MG TABLET (FP) PO SCH (23:05)
[2021-07-03] MEDS: guaiFENesin 200 MG/10 ML 10 ML UNIT-DOSE CUPS PO PRN (23:05)
[2021-07-04] MEDS: methylPREDNISolone NA SUCC 40 MG/1 ML VIAL IVPUSH SCH ×3 (06:15→17:54)
[2021-07-04] MEDS: FUROSEMIDE 20 MG TABLET (FP) PO SCH ×2 (06:15→13:18)
[2021-07-04] MEDS: INSULIN (LEVEMIR) 100 UNITS/ML UNITS SQ SCH ×2 (06:16→21:37)
[2021-07-04] MEDS: glipiZIDE-XL 10 MG TAB.ER.24 (FP) PO SCH (06:16)
[2021-07-04] MEDS: INSULIN (NOVOLOG MIX 70/30) 100 UNITS/ML MDV SQ SCH ×3 (06:16→17:34)
[2021-07-04] MEDS: INSULIN SLIDING SCALE (NOVOLOG) 1 VIAL SQ SCH ×4 (06:19→21:37)
[2021-07-04] MEDS ORDERED: cefTRIAXone SODIUM 1 GM VIAL ONE (08:48)
[2021-07-04] MEDS ORDERED: DEXTROSE 5%-WATER - 50 ML IVPB ONE (08:49)
[2021-07-04] MEDS: ENOXAPARIN NA (PORCINE) 40 MG/0.4 ML DISP.SYRIN SQ SCH ×2 (10:23→21:11)
[2021-07-04] MEDS: NICOTINE 21 MG/24 HOURS TOPICAL PATCH TD SCH (10:23)
[2021-07-04] MEDS: LISINOPRIL 20 MG TABLET PO SCH (10:23)
[2021-07-04] MEDS: PANTOPRAZOLE 40 MG TABLET PO SCH (10:23)
[2021-07-04] MEDS: CEFTRIAXONE 1 GM in DEXTROSE 5%-WATER - 50 ML IVPB SCH (10:24)
[2021-07-04] MEDS: FLUTICASONE/UMECLIDIN/VILANTER(200-62.5-25 TRELEGY ELLIPTA) INAHLER IH SCH (10:24)
[2021-07-04] MEDS ORDERED: DOXYCYCLINE HYCLATE 100 MG VIAL ONE ×2 (10:26→20:42)
[2021-07-04] MEDS ORDERED: DEXTROSE 5%-WATER 100 ML IVPB ONE ×2 (10:27→20:42)
[2021-07-04] MEDS: DOXYCYCLINE INJECTION 100 MG in DEXTROSE 5%-WATER 100 ML IVPB SCH ×2 (10:28→21:11)
[2021-07-04 12:32] LABS: BASO % 0.5 % (0-2.0); HEMATOCRIT 42.2 % (32.4-45.2); HEMOGLOBIN 13.7 GM/dL (10.7-15.3); LYMPH % 18.7 % (8-40); MCH 26.2 pg (25.7-33.7); MCHC 32.4 g/dl (32.0-36.0); MEAN CELL VOLUME 80.8 fl (80-96); MEAN PLT VOLUME 8.6 fl (7.5-11.1); MONO % 7.3 % (3.8-10.2); NEUT % 73.5 % (42.8-82.8); PLATELET COUNT 221 10^3/uL (134-434); RBC 5.22 M/mm3 (3.60-5.2); WHITE BLOOD COUNT 10.2 K/mm3 (4.0-10.0)
[2021-07-04 12:50] LABS: BLOOD UREA NITROGEN 21.7 mg/dL (7-18); CALCIUM 8.9 mg/dL (8.5-10.1); MAGNESIUM 2.3 mg/dL (1.8-2.4)
[2021-07-04 12:53] LABS: CREATININE 0.9 mg/dL (0.55-1.3)
[2021-07-04 12:55] LABS: BILIRUBIN,TOTAL 0.4 mg/dL (0.2-1); TOT PROT 6.8 g/dl (6.4-8.2)
[2021-07-04] MEDS: PRAMIPEXOLE DIHYDROCHLORIDE 0.5 MG TABLET PO SCH (21:11)
[2021-07-04] MEDS: MELATONIN 5 MG TABLETS PO SCH (21:11)
[2021-07-04] MEDS: guaiFENesin 200 MG/10 ML 10 ML UNIT-DOSE CUPS PO PRN (21:11)
[2021-07-04] MEDS: ATORVASTATIN CA 40 MG TABLET (FP) PO SCH (21:11)
[2021-07-05] MEDS: methylPREDNISolone NA SUCC 40 MG/1 ML VIAL IVPUSH SCH ×3 (03:50→17:23)
[2021-07-05] MEDS: FUROSEMIDE 20 MG TABLET (FP) PO SCH (06:07)
[2021-07-05] MEDS: glipiZIDE-XL 10 MG TAB.ER.24 (FP) PO SCH (06:08)
[2021-07-05] MEDS: INSULIN (LEVEMIR) 100 UNITS/ML UNITS SQ SCH ×2 (06:09→22:28)
[2021-07-05] MEDS: INSULIN SLIDING SCALE (NOVOLOG) 1 VIAL SQ SCH ×4 (06:10→22:27)
[2021-07-05] MEDS: INSULIN (NOVOLOG MIX 70/30) 100 UNITS/ML MDV SQ SCH ×3 (06:10→16:37)
[2021-07-05 07:59] LABS: HEMATOCRIT 39.9 % (32.4-45.2); HEMOGLOBIN 13.2 GM/dL (10.7-15.3); MCH 26.3 pg (25.7-33.7); MCHC 33.2 g/dl (32.0-36.0); MEAN CELL VOLUME 79.3 fl (80-96); MEAN PLT VOLUME 8.5 fl (7.5-11.1); PLATELET COUNT 186 10^3/uL (134-434); RBC 5.03 M/mm3 (3.60-5.2); RDW 13.8 % (11.6-15.6); WHITE BLOOD COUNT 12.4 K/mm3 (4.0-10.0)
[2021-07-05 08:15] LABS: ALBUMIN 2.8 g/dl (3.4-5.0); BLOOD UREA NITROGEN 20.4 mg/dL (7-18); MAGNESIUM 2.4 mg/dL (1.8-2.4)
[2021-07-05 08:18] LABS: CREATININE 0.9 mg/dL (0.55-1.3)
[2021-07-05 08:19] LABS: TOT PROT 6.2 g/dl (6.4-8.2)
[2021-07-05 08:20] LABS: BILIRUBIN,TOTAL 0.4 mg/dL (0.2-1)
[2021-07-05] MEDS ORDERED: DOXYCYCLINE HYCLATE 100 MG VIAL ONE ×2 (09:02→22:13)
[2021-07-05] MEDS ORDERED: DEXTROSE 5%-WATER 100 ML IVPB ONE ×2 (09:03→22:13)
[2021-07-05] MEDS ORDERED: cefTRIAXone SODIUM 1 GM VIAL ONE (09:03)
[2021-07-05] MEDS ORDERED: DEXTROSE 5%-WATER - 50 ML IVPB ONE (09:04)
[2021-07-05] MEDS: LISINOPRIL 20 MG TABLET PO SCH (10:04)
[2021-07-05] MEDS: ENOXAPARIN NA (PORCINE) 40 MG/0.4 ML DISP.SYRIN SQ SCH ×2 (10:04→22:27)
[2021-07-05] MEDS: guaiFENesin 600 MG TABLET.ER (FP) PO SCH ×2 (10:10→22:26)
[2021-07-05] MEDS: NICOTINE 21 MG/24 HOURS TOPICAL PATCH TD SCH (10:10)
[2021-07-05] MEDS: PANTOPRAZOLE 40 MG TABLET PO SCH (10:10)
[2021-07-05] MEDS: DOXYCYCLINE INJECTION 100 MG in DEXTROSE 5%-WATER 100 ML IVPB SCH ×2 (10:14→22:29)
[2021-07-05] MEDS: FLUTICASONE/UMECLIDIN/VILANTER(200-62.5-25 TRELEGY ELLIPTA) INAHLER IH SCH (10:15)
[2021-07-05] MEDS: CEFTRIAXONE 1 GM in DEXTROSE 5%-WATER - 50 ML IVPB SCH (10:16)
[2021-07-05 11:09] LABS: ANISOCYTOSIS 0; HELMET CELLS 0; HOWELL-JOLLY BODIES 0; MACROCYTOSIS 0; OVALOCYTE 0; ROULEAU 0; SICKELED CELLS 0; TARGET CELLS 0; TEAR DROP CELLS 0; TOXIC GRANULATION 0
[2021-07-05] MEDS: FUROSEMIDE 40 MG TABLET (FP) PO SCH (14:14)
[2021-07-05] MEDS ORDERED: INSULIN (NOVOLOG) ASPART 100 UNITS/ML 10ML VIAL ONE (16:25)
[2021-07-05] MEDS: ATORVASTATIN CA 40 MG TABLET (FP) PO SCH (22:26)
[2021-07-05] MEDS: MELATONIN 5 MG TABLETS PO SCH (22:26)
[2021-07-05] MEDS: PRAMIPEXOLE DIHYDROCHLORIDE 0.5 MG TABLET PO SCH (22:26)
[2021-07-06] MEDS: methylPREDNISolone NA SUCC 40 MG/1 ML VIAL IVPUSH SCH ×2 (01:59→10:10)
[2021-07-06] MEDS: FUROSEMIDE 40 MG TABLET (FP) PO SCH ×2 (06:48→13:34)
[2021-07-06] MEDS: glipiZIDE-XL 10 MG TAB.ER.24 (FP) PO SCH (06:48)
[2021-07-06] MEDS: INSULIN (NOVOLOG MIX 70/30) 100 UNITS/ML MDV SQ SCH ×3 (06:51→16:31)
[2021-07-06] MEDS: INSULIN (LEVEMIR) 100 UNITS/ML UNITS SQ SCH ×2 (06:52→22:31)
[2021-07-06] MEDS: INSULIN SLIDING SCALE (NOVOLOG) 1 VIAL SQ SCH ×4 (06:55→22:32)
[2021-07-06 07:32] LABS: HEMATOCRIT 40.9 % (32.4-45.2); HEMOGLOBIN 13.5 GM/dL (10.7-15.3); MCH 26.3 pg (25.7-33.7); MEAN CELL VOLUME 79.9 fl (80-96); MEAN PLT VOLUME 8.6 fl (7.5-11.1); PLATELET COUNT 192 10^3/uL (134-434); RBC 5.12 M/mm3 (3.60-5.2); RDW 13.7 % (11.6-15.6); WHITE BLOOD COUNT 11.8 K/mm3 (4.0-10.0)
[2021-07-06 08:01] LABS: CALCIUM 8.7 mg/dL (8.5-10.1)
[2021-07-06 08:02] LABS: ALBUMIN 2.7 g/dl (3.4-5.0); BLOOD UREA NITROGEN 21.4 mg/dL (7-18); MAGNESIUM 2.2 mg/dL (1.8-2.4)
[2021-07-06 08:05] LABS: CREATININE 0.9 mg/dL (0.55-1.3)
[2021-07-06 08:07] LABS: BILIRUBIN,TOTAL 0.9 mg/dL (0.2-1); TOT PROT 6.2 g/dl (6.4-8.2)
[2021-07-06] MEDS ORDERED: DOXYCYCLINE HYCLATE 100 MG VIAL ONE (08:27)
[2021-07-06] MEDS ORDERED: DEXTROSE 5%-WATER 100 ML IVPB ONE (08:29)
[2021-07-06] MEDS ORDERED: cefTRIAXone SODIUM 1 GM VIAL ONE (08:30)
[2021-07-06] MEDS ORDERED: DEXTROSE 5%-WATER - 50 ML IVPB ONE (08:30)
[2021-07-06] MEDS: LISINOPRIL 20 MG TABLET PO SCH (09:40)
[2021-07-06] MEDS: guaiFENesin 600 MG TABLET.ER (FP) PO SCH ×2 (09:42→22:31)
[2021-07-06] MEDS: PANTOPRAZOLE 40 MG TABLET PO SCH (09:42)
[2021-07-06] MEDS: NICOTINE 21 MG/24 HOURS TOPICAL PATCH TD SCH (09:43)
[2021-07-06] MEDS: DOXYCYCLINE INJECTION 100 MG in DEXTROSE 5%-WATER 100 ML IVPB SCH (09:43)
[2021-07-06] MEDS: ENOXAPARIN NA (PORCINE) 40 MG/0.4 ML DISP.SYRIN SQ SCH ×2 (09:43→22:30)
[2021-07-06] MEDS: CEFTRIAXONE 1 GM in DEXTROSE 5%-WATER - 50 ML IVPB SCH (09:43)
[2021-07-06] MEDS: FLUTICASONE/UMECLIDIN/VILANTER(200-62.5-25 TRELEGY ELLIPTA) INAHLER IH SCH (10:11)
[2021-07-06 10:18] LABS: ANISOCYTOSIS 0; HELMET CELLS 0; HOWELL-JOLLY BODIES 0; MACROCYTOSIS 0; OVALOCYTE 0; ROULEAU 0; SICKELED CELLS 0; TARGET CELLS 0; TEAR DROP CELLS 0; TOXIC GRANULATION 0
[2021-07-06] MEDS ORDERED: hydrALAZINE HCL 10 MG TABLET PO ONE (15:46)
[2021-07-06 18:46] VITALS: BMI 53.3
[2021-07-06] MEDS: PRAMIPEXOLE DIHYDROCHLORIDE 0.5 MG TABLET PO SCH (22:31)
[2021-07-06] MEDS: ATORVASTATIN CA 40 MG TABLET (FP) PO SCH (22:31)
[2021-07-06] MEDS: MELATONIN 5 MG TABLETS PO SCH (22:31)
[2021-07-07] MEDS: methylPREDNISolone NA SUCC 40 MG/1 ML VIAL IVPUSH SCH ×2 (01:10→11:04)
[2021-07-07] MEDS ORDERED: INSULIN (NOVOLOG) ASPART 100 UNITS/ML 10ML VIAL SQ ONE (01:36)
[2021-07-07] MEDS: FUROSEMIDE 40 MG TABLET (FP) PO SCH ×2 (06:40→13:52)
[2021-07-07] MEDS: glipiZIDE-XL 10 MG TAB.ER.24 (FP) PO SCH (06:40)
[2021-07-07] MEDS: INSULIN (LEVEMIR) 100 UNITS/ML UNITS SQ SCH ×2 (06:40→21:37)
[2021-07-07] MEDS: INSULIN (NOVOLOG MIX 70/30) 100 UNITS/ML MDV SQ SCH ×3 (06:40→17:04)
[2021-07-07] MEDS: INSULIN SLIDING SCALE (NOVOLOG) 1 VIAL SQ SCH ×4 (06:40→21:39)
[2021-07-07 07:05] LABS: BASO % 0.3 % (0-2.0); EOS % 0.1 % (0-4.5); HEMATOCRIT 42.6 % (32.4-45.2); HEMOGLOBIN 13.6 GM/dL (10.7-15.3); LYMPH % 17.3 % (8-40); MCH 25.7 pg (25.7-33.7); MCHC 31.9 g/dl (32.0-36.0); MEAN CELL VOLUME 80.4 fl (80-96); MEAN PLT VOLUME 9.1 fl (7.5-11.1); MONO % 4.9 % (3.8-10.2); NEUT % 77.4 % (42.8-82.8); PLATELET COUNT 199 10^3/uL (134-434); RBC 5.29 M/mm3 (3.60-5.2); RDW 13.9 % (11.6-15.6); WHITE BLOOD COUNT 12.9 K/mm3 (4.0-10.0)
[2021-07-07 07:54] LABS: CREATININE 0.9 mg/dL (0.55-1.3)
[2021-07-07 07:55] LABS: ALBUMIN 2.7 g/dl (3.4-5.0); BILIRUBIN,TOTAL 0.5 mg/dL (0.2-1); CALCIUM 8.8 mg/dL (8.5-10.1)
[2021-07-07 07:56] LABS: BLOOD UREA NITROGEN 20.7 mg/dL (7-18); MAGNESIUM 2.1 mg/dL (1.8-2.4)
[2021-07-07] MEDS: guaiFENesin 600 MG TABLET.ER (FP) PO SCH ×2 (11:03→21:36)
[2021-07-07] MEDS: AMOX TR/POT CLAV 500MG/125MG TABLETS (FP) PO SCH ×2 (11:03→17:08)
[2021-07-07] MEDS: PANTOPRAZOLE 40 MG TABLET PO SCH (11:03)
[2021-07-07] MEDS: LISINOPRIL 20 MG TABLET PO SCH (11:03)
[2021-07-07] MEDS: NICOTINE 21 MG/24 HOURS TOPICAL PATCH TD SCH (11:04)
[2021-07-07] MEDS: ENOXAPARIN NA (PORCINE) 40 MG/0.4 ML DISP.SYRIN SQ SCH ×2 (11:04→21:37)
[2021-07-07] MEDS: FLUTICASONE/UMECLIDIN/VILANTER(200-62.5-25 TRELEGY ELLIPTA) INAHLER IH SCH (11:04)
[2021-07-07] MEDS: MELATONIN 5 MG TABLETS PO SCH (21:37)
[2021-07-07] MEDS: PRAMIPEXOLE DIHYDROCHLORIDE 0.5 MG TABLET PO SCH (21:37)
[2021-07-07] MEDS: ATORVASTATIN CA 40 MG TABLET (FP) PO SCH (21:37)
[2021-07-08] MEDS: FUROSEMIDE 40 MG TABLET (FP) PO SCH (06:35)
[2021-07-08] MEDS: INSULIN (NOVOLOG MIX 70/30) 100 UNITS/ML MDV SQ SCH (06:36)
[2021-07-08] MEDS: glipiZIDE-XL 10 MG TAB.ER.24 (FP) PO SCH (06:36)
[2021-07-08] MEDS: INSULIN SLIDING SCALE (NOVOLOG) 1 VIAL SQ SCH (06:37)
[2021-07-08] MEDS: INSULIN (LEVEMIR) 100 UNITS/ML UNITS SQ SCH (06:37)
[2021-07-08 07:30] LABS: BASO % 0.4 % (0-2.0); HEMATOCRIT 43.8 % (32.4-45.2); HEMOGLOBIN 14.1 GM/dL (10.7-15.3); LYMPH % 40.7 % (8-40); MCH 25.9 pg (25.7-33.7); MCHC 32.1 g/dl (32.0-36.0); MEAN CELL VOLUME 80.5 fl (80-96); MEAN PLT VOLUME 9.3 fl (7.5-11.1); MONO % 5.7 % (3.8-10.2); NEUT % 52.2 % (42.8-82.8); PLATELET COUNT 188 10^3/uL (134-434); RBC 5.45 M/mm3 (3.60-5.2); RDW 13.9 % (11.6-15.6); WHITE BLOOD COUNT 14.2 K/mm3 (4.0-10.0)
[2021-07-08 07:47] LABS: ALBUMIN 2.6 g/dl (3.4-5.0); CALCIUM 8.7 mg/dL (8.5-10.1)
[2021-07-08 07:48] LABS: BLOOD UREA NITROGEN 22.4 mg/dL (7-18); MAGNESIUM 2.1 mg/dL (1.8-2.4)
[2021-07-08 07:50] LABS: CREATININE 0.9 mg/dL (0.55-1.3)
[2021-07-08 07:52] LABS: BILIRUBIN,TOTAL 0.7 mg/dL (0.2-1)
[2021-07-08] MEDS ORDERED: predniSONE 20 MG TABLET (UD) PO SCH (10:00)
[2021-07-08] MEDS: guaiFENesin 600 MG TABLET.ER (FP) PO SCH (10:12)
[2021-07-08] MEDS: LISINOPRIL 20 MG TABLET PO SCH (10:12)
[2021-07-08] MEDS: PANTOPRAZOLE 40 MG TABLET PO SCH (10:12)
[2021-07-08] MEDS: NICOTINE 21 MG/24 HOURS TOPICAL PATCH TD SCH (10:12)
[2021-07-08] MEDS: FLUTICASONE/UMECLIDIN/VILANTER(200-62.5-25 TRELEGY ELLIPTA) INAHLER IH SCH (10:13)
[2021-07-08] MEDS: AMOX TR/POT CLAV 500MG/125MG TABLETS (FP) PO SCH (10:13)
[2021-07-08] MEDS: ENOXAPARIN NA (PORCINE) 40 MG/0.4 ML DISP.SYRIN SQ SCH (10:20)
[2021-07-08 14:03] VITALS: BP 144/95; PULSE 97; TEMP 98.1
== END 2021-07-08 12:37 | disposition home or self-care (01) | DRG 140 ==
LOC: JER 11:02 → JERBED 13:45 → OBSVTOIN 16:46 → J4W 21:42
PROVIDERS: ADMIT Internal Medicine; ATTEND Nurse Practitioner Acute Care
DX: J44.1 Chronic obstructive pulmonary disease with (acute) exacerbation (principal); E78.5 Hyperlipidemia, unspecified; R94.31 Abnormal electrocardiogram [ECG] [EKG]; K44.9 Diaphragmatic hernia without obstruction or gangrene; E66.01 Morbid (severe) obesity due to excess calories; Z68.43 Body mass index [BMI] 50.0-59.9, adult; E88.81 Metabolic syndrome and other insulin resistance; I24.8 Other forms of acute ischemic heart disease; I11.0 Hypertensive heart disease with heart failure; I50.33 Acute on chronic diastolic (congestive) heart failure; G47.30 Sleep apnea, unspecified; I47.1 Supraventricular tachycardia; R60.0 Localized edema; R07.89 Other chest pain; I25.10 Atherosclerotic heart disease of native coronary artery without angina pectoris; E11.65 Type 2 diabetes mellitus with hyperglycemia; J06.9 Acute upper respiratory infection, unspecified; M19.90 Unspecified osteoarthritis, unspecified site; R68.89 Other general symptoms and signs; F17.210 Nicotine dependence, cigarettes, uncomplicated; Z99.89 Dependence on other enabling machines and devices
CPT/HCPCS: 36415; 71045-TC-FY; 80048; 80053; 82803; 82962; 83036; 83735; 83880; 84443; 84484; 85025; 85027; 87804; 93005; 93010; 94640; 94660; 94761; 99285-25; C9803-CS; G0378; J1100; U0003; U0005

== ENCOUNTER 2021-10-30 05:39 | Inpatient (IN) | payer OTHER ==
[2021-10-30] MEDS ORDERED: ALBUTEROL SO4 2.5/IPRATROPIUM 0.5 INH SOL 3 ML VIAL.NEB. NEB ONE ×2 (06:05→06:36)
[2021-10-30] MEDS ORDERED: methylPREDNISolone NA SUCC 125 MG/2 ML VIAL IVPB ONE (06:05)
[2021-10-30 06:37] LABS: BASO % 0.8 % (0-2.0); EOS % 1.2 % (0-4.5); HEMATOCRIT 43.1 % (32.4-45.2); HEMOGLOBIN 13.8 GM/dL (10.7-15.3); LYMPH % 33.1 % (8-40); MCH 25.3 pg (25.7-33.7); MCHC 32.1 g/dl (32.0-36.0); MEAN CELL VOLUME 78.7 fl (80-96); MEAN PLT VOLUME 8.5 fl (7.5-11.1); MONO % 4.5 % (3.8-10.2); NEUT % 60.4 % (42.8-82.8); PLATELET COUNT 268 10^3/uL (134-434); RBC 5.48 M/mm3 (3.60-5.2); RDW 14.8 % (11.6-15.6); VENOUS BASE EXCESS -0.8 mmol/L (-2-2); VENOUS O2 SATURATION 80.4 % (70-80); VENOUS PH 7.354 (7.310-7.410); WHITE BLOOD COUNT 10.1 K/mm3 (4.0-10.0)
[2021-10-30] MEDS ORDERED: FUROSEMIDE 40 MG/4 ML INJECTABLE VIAL IVPUSH ONE (06:51)
[2021-10-30] MEDS ORDERED: methylPREDNISolone NA SUCC 125 MG/2 ML VIAL ONE (06:56)
[2021-10-30 07:00] LABS: CALCIUM 8.6 mg/dL (8.5-10.1)
[2021-10-30 07:01] LABS: BLOOD UREA NITROGEN 9.2 mg/dL (7-18)
[2021-10-30 07:05] LABS: CREATININE 0.8 mg/dL (0.55-1.3)
[2021-10-30 07:06] LABS: BILIRUBIN,TOTAL 0.6 mg/dL (0.2-1); TOT PROT 6.9 g/dl (6.4-8.2)
[2021-10-30 07:09] LABS: N-TERMINAL BNP 570.7 pg/ml (5-125)
[2021-10-30] MEDS ORDERED: ASPIRIN 81 MG CHEWABLE TABLETS PO ONE (07:17)
[2021-10-30 08:00] LABS: ACTIVATED PTT 28.1 SECONDS (25.2-36.5)
[2021-10-30] MEDS ORDERED: ASPIRIN 81 MG CHEWABLE TABLETS ONE (08:08)
[2021-10-30] MEDS ORDERED: FUROSEMIDE 40 MG/4 ML INJECTABLE VIAL ONE (08:08)
[2021-10-30 08:21] LABS: INR 1.03 (0.83-1.09); PROTHROMBIN TIME (PATIENT) 11.8 SEC (9.7-13.0)
[2021-10-30 11:15] VITALS: BMI 52.8
[2021-10-30] MEDS ORDERED: ACETAMINOPHEN 325 MG TABLET (FP) PO PRN (11:55)
[2021-10-30] MEDS ORDERED: ALBUTEROL SO4 HFA INHALER IH PRN (11:59)
[2021-10-30] MEDS ORDERED: SIMETHICONE 80 MG TAB.CHEW (FP) PO PRN (12:25)
[2021-10-30] MEDS: ENOXAPARIN NA (PORCINE) 40 MG/0.4 ML DISP.SYRIN SQ SCH ×2 (12:42→21:49)
[2021-10-30] MEDS: LISINOPRIL 20 MG TABLET PO SCH (12:42)
[2021-10-30] MEDS ORDERED: PANTOPRAZOLE 20 MG TABLET PO SCH (12:45)
[2021-10-30] MEDS: FLUTICASONE/UMECLIDIN/VILANTER(200-62.5-25 TRELEGY ELLIPTA) INAHLER IH SCH (14:25)
[2021-10-30] MEDS: FUROSEMIDE 40 MG/4 ML INJECTABLE VIAL IVPUSH SCH (14:25)
[2021-10-30] MEDS ORDERED: PANTOPRAZOLE 20 MG TABLET PO ONE (14:30)
[2021-10-30] MEDS: INSULIN SLIDING SCALE (NOVOLOG) 1 VIAL SQ SCH ×2 (17:44→21:48)
[2021-10-30] MEDS: TOPIRAMATE 100 MG TABLET PO SCH (21:49)
[2021-10-30] MEDS: ATORVASTATIN CA 40 MG TABLET (FP) PO SCH (21:49)
[2021-10-30] MEDS: PRAMIPEXOLE DIHYDROCHLORIDE 0.5 MG TABLET PO SCH (22:08)
[2021-10-31] MEDS: INSULIN SLIDING SCALE (NOVOLOG) 1 VIAL SQ SCH ×4 (06:02→21:20)
[2021-10-31] MEDS: FUROSEMIDE 40 MG/4 ML INJECTABLE VIAL IVPUSH SCH ×2 (06:03→14:51)
[2021-10-31 08:50] LABS: BASO % 0.3 % (0-2.0); EOS % 0.5 % (0-4.5); HEMATOCRIT 40.6 % (32.4-45.2); HEMOGLOBIN 13.1 GM/dL (10.7-15.3); LYMPH % 34.4 % (8-40); MCH 25.6 pg (25.7-33.7); MCHC 32.3 g/dl (32.0-36.0); MEAN CELL VOLUME 79.4 fl (80-96); MEAN PLT VOLUME 8.2 fl (7.5-11.1); MONO % 5.7 % (3.8-10.2); NEUT % 59.1 % (42.8-82.8); PLATELET COUNT 242 10^3/uL (134-434); RBC 5.11 M/mm3 (3.60-5.2); RDW 14.4 % (11.6-15.6); WHITE BLOOD COUNT 12.1 K/mm3 (4.0-10.0)
[2021-10-31] MEDS: LISINOPRIL 20 MG TABLET PO SCH (09:13)
[2021-10-31] MEDS: TOPIRAMATE 100 MG TABLET PO SCH ×2 (09:15→21:20)
[2021-10-31] MEDS: PANTOPRAZOLE 40 MG TABLET PO SCH (09:15)
[2021-10-31 09:16] LABS: ALBUMIN 3.1 g/dl (3.4-5.0); BLOOD UREA NITROGEN 13.9 mg/dL (7-18); CALCIUM 9.2 mg/dL (8.5-10.1); MAGNESIUM 1.9 mg/dL (1.8-2.4)
[2021-10-31] MEDS: ENOXAPARIN NA (PORCINE) 40 MG/0.4 ML DISP.SYRIN SQ SCH ×2 (09:16→21:20)
[2021-10-31] MEDS: FLUTICASONE/UMECLIDIN/VILANTER(200-62.5-25 TRELEGY ELLIPTA) INAHLER IH SCH (09:18)
[2021-10-31 09:19] LABS: CREATININE 0.9 mg/dL (0.55-1.3); PHOSPHOROUS 3.6 mg/dL (2.5-4.9)
[2021-10-31 09:21] LABS: BILIRUBIN,TOTAL 0.4 mg/dL (0.2-1)
[2021-10-31] MEDS: SPIRONOLACTONE 25 MG TABLET PO SCH (11:27)
[2021-10-31 19:08] VITALS: RESP 18
[2021-10-31] MEDS: PRAMIPEXOLE DIHYDROCHLORIDE 0.5 MG TABLET PO SCH (21:20)
[2021-10-31] MEDS: ATORVASTATIN CA 40 MG TABLET (FP) PO SCH (21:20)
[2021-10-31 21:26] VITALS: TEMP 98
[2021-11-01] MEDS: INSULIN SLIDING SCALE (NOVOLOG) 1 VIAL SQ SCH ×2 (06:46→11:30)
[2021-11-01] MEDS: FUROSEMIDE 40 MG/4 ML INJECTABLE VIAL IVPUSH SCH (06:46)
[2021-11-01 09:22] LABS: BASO % 0.5 % (0-2.0); EOS % 1.2 % (0-4.5); HEMOGLOBIN 13.4 GM/dL (10.7-15.3); LYMPH % 38.2 % (8-40); MCH 25.5 pg (25.7-33.7); MCHC 32.6 g/dl (32.0-36.0); MEAN CELL VOLUME 78.3 fl (80-96); MEAN PLT VOLUME 8.5 fl (7.5-11.1); MONO % 4.6 % (3.8-10.2); NEUT % 55.5 % (42.8-82.8); PLATELET COUNT 260 10^3/uL (134-434); RBC 5.24 M/mm3 (3.60-5.2); RDW 14.2 % (11.6-15.6); WHITE BLOOD COUNT 8.3 K/mm3 (4.0-10.0)
[2021-11-01 09:53] LABS: ALBUMIN 3.1 g/dl (3.4-5.0); BLOOD UREA NITROGEN 14.9 mg/dL (7-18); CALCIUM 8.9 mg/dL (8.5-10.1); MAGNESIUM 1.7 mg/dL (1.8-2.4)
[2021-11-01 09:56] LABS: BILIRUBIN,TOTAL 0.5 mg/dL (0.2-1); CREATININE 0.9 mg/dL (0.55-1.3)
[2021-11-01 09:57] LABS: TOT PROT 6.8 g/dl (6.4-8.2)
[2021-11-01] MEDS: PANTOPRAZOLE 40 MG TABLET PO SCH (10:17)
[2021-11-01] MEDS: SPIRONOLACTONE 25 MG TABLET PO SCH (10:17)
[2021-11-01] MEDS: TOPIRAMATE 100 MG TABLET PO SCH (10:17)
[2021-11-01] MEDS: LISINOPRIL 20 MG TABLET PO SCH (10:17)
[2021-11-01] MEDS: FLUTICASONE/UMECLIDIN/VILANTER(200-62.5-25 TRELEGY ELLIPTA) INAHLER IH SCH (10:19)
[2021-11-01] MEDS: ENOXAPARIN NA (PORCINE) 40 MG/0.4 ML DISP.SYRIN SQ SCH (10:20)
[2021-11-01 10:28] VITALS: BP 142/82; PULSE 100
[2021-11-01] MEDS ORDERED: MAGNESIUM OXIDE 400 MG TABLET (FP) PO ONE (12:54)
[2021-11-01] MEDS ORDERED: FUROSEMIDE 20 MG TABLET (FP) PO SCH (14:00)
== END 2021-11-01 13:12 | disposition home or self-care (01) | DRG 194 ==
LOC: JER 05:39 → JERBED 09:15 → J5S 10:02
PROVIDERS: ADMIT Internal Medicine; ATTEND Nurse Practitioner Acute Care
DX: I11.0 Hypertensive heart disease with heart failure (principal); E66.01 Morbid (severe) obesity due to excess calories; Z68.43 Body mass index [BMI] 50.0-59.9, adult; M35.1 Other overlap syndromes; E88.81 Metabolic syndrome and other insulin resistance; I50.33 Acute on chronic diastolic (congestive) heart failure; E78.5 Hyperlipidemia, unspecified; J44.9 Chronic obstructive pulmonary disease, unspecified; G47.33 Obstructive sleep apnea (adult) (pediatric); I25.10 Atherosclerotic heart disease of native coronary artery without angina pectoris; R94.31 Abnormal electrocardiogram [ECG] [EKG]; I24.8 Other forms of acute ischemic heart disease; F17.210 Nicotine dependence, cigarettes, uncomplicated
CPT/HCPCS: 0241U-QW; 36415; 71045-TC-FY; 80053; 82803; 82962; 83735; 83880; 84100; 84484; 85025; 85610; 85730; 93005; 93010; 93306-TC; 93971-TC; 94660; 95811; 97116-GP; 97161-GP; 99285-25

== ENCOUNTER 2021-12-03 16:24 | Emergency (ER) | payer OTHER ==
[2021-12-03 16:59] VITALS: TEMP 97.5; BMI 50.1
[2021-12-03] MEDS ORDERED: MAG HYDROX/AL HYDROX/SIMETH 30 ML UNIT-DOSE CUP PO ONE (17:39)
[2021-12-03] MEDS ORDERED: FAMOTIDINE 20 MG/50 ML IVPB 20 MG/50 ML MG IVPB ONE ×2 (17:39→18:28)
[2021-12-03 18:12] LABS: BASO % 0.6 % (0-2.0); EOS % 1.4 % (0-4.5); HEMATOCRIT 43.8 % (32.4-45.2); HEMOGLOBIN 14.4 GM/dL (10.7-15.3); LYMPH % 46.8 % (8-40); MCH 25.7 pg (25.7-33.7); MCHC 32.8 g/dl (32.0-36.0); MEAN CELL VOLUME 78.5 fl (80-96); MEAN PLT VOLUME 8.1 fl (7.5-11.1); MONO % 6.5 % (3.8-10.2); NEUT % 44.7 % (42.8-82.8); PLATELET COUNT 283 10^3/uL (134-434); RBC 5.57 M/mm3 (3.60-5.2); RDW 15.5 % (11.6-15.6); WHITE BLOOD COUNT 8.9 K/mm3 (4.0-10.0)
[2021-12-03 18:22] LABS: INR 1.05 (0.83-1.09); PROTHROMBIN TIME (PATIENT) 12.1 SEC (9.7-13.0)
[2021-12-03] MEDS ORDERED: MAG HYDROX/AL HYDROX/SIMETH 30 ML UNIT-DOSE CUP ONE (18:28)
[2021-12-03 18:32] LABS: CHLORIDE 109 mmol/L (98-107); SODIUM 144 mmol/L (136-145)
[2021-12-03 18:35] LABS: CALCIUM 9.4 mg/dL (8.5-10.1)
[2021-12-03 18:36] LABS: ALBUMIN 3.4 g/dl (3.4-5.0); ANION GAP 7 MMOL/L (8-16); CO2 28 mmol/L (21-32); GLUCOSE,RANDOM 115 mg/dL (74-106)
[2021-12-03 18:39] LABS: SGOT/AST 8 U/L (15-37); SGPT/ALT 21 U/L (13-61)
[2021-12-03 18:41] LABS: BILIRUBIN,TOTAL 0.4 mg/dL (0.2-1); TOT PROT 7.1 g/dl (6.4-8.2)
[2021-12-03 18:42] LABS: ALK PHOS 115 U/L (45-117)
[2021-12-03] MEDS ORDERED: ALBUTEROL SO4 HFA INHALER IH ONE ×2 (18:59→19:36)
[2021-12-03] MEDS ORDERED: ASPIRIN 81 MG CHEWABLE TABLETS PO ONE (19:13)
[2021-12-03] MEDS ORDERED: ASPIRIN 81 MG CHEWABLE TABLETS ONE (19:36)
[2021-12-03 19:44] VITALS: BP 135/95; PULSE 100; RESP 20
== END 2021-12-03 22:36 | disposition home or self-care (01) ==
LOC: JER 16:24
PROC: 3E033GC Introduction of Other Therapeutic Substance into Peripheral Vein, Percutaneous Approach (ICD-10-PCS; principal; 2021-12-03)
DX: R06.02 Shortness of breath (principal); R07.9 Chest pain, unspecified
CPT/HCPCS: 36415; 71045-TC-FY; 80053; 82962; 83880; 84484; 85025; 85610; 85730; 93005; 93010; 99285-25; C9803-CS; U0003; U0005

== ENCOUNTER 2022-02-09 01:56 | Observation (INO) | payer OTHER ==
[2022-02-09] MEDS ORDERED: methylPREDNISolone NA SUCC 125 MG/2 ML VIAL IVPUSH ONE (02:25)
[2022-02-09] MEDS ORDERED: ALBUTEROL SO4 2.5/IPRATROPIUM 0.5 INH SOL 3 ML VIAL.NEB. NEB ONE ×5 (03:05→19:48)
[2022-02-09] MEDS ORDERED: methylPREDNISolone NA SUCC 125 MG/2 ML VIAL ONE (03:05)
[2022-02-09] MEDS: ALBUTEROL SO4 2.5/IPRATROPIUM 0.5 INH SOL 3 ML VIAL.NEB. NEB SCH ×6 (03:10→23:56)
[2022-02-09 03:18] LABS: BASO % 0.6 % (0-2.0); EOS % 1.6 % (0-4.5); LYMPH % 39.5 % (8-40); MCH 25.6 pg (25.7-33.7); MCHC 31.7 g/dl (32.0-36.0); MEAN CELL VOLUME 80.8 fl (80-96); MEAN PLT VOLUME 8.3 fl (7.5-11.1); MONO % 6.1 % (3.8-10.2); NEUT % 52.2 % (42.8-82.8); PLATELET COUNT 242 10^3/uL (134-434); RBC 5.08 M/mm3 (3.60-5.2); RDW 16.3 % (11.6-15.6); WHITE BLOOD COUNT 8.3 K/mm3 (4.0-10.0)
[2022-02-09 03:35] LABS: CHLORIDE 111 mmol/L (98-107); SODIUM 144 mmol/L (136-145)
[2022-02-09 03:38] LABS: ALBUMIN 3.2 g/dl (3.4-5.0); ANION GAP 8 MMOL/L (8-16); BLOOD UREA NITROGEN 14.6 mg/dL (7-18); CALCIUM 8.7 mg/dL (8.5-10.1); CO2 25 mmol/L (21-32); GLUCOSE,RANDOM 59 mg/dL (74-106)
[2022-02-09 03:40] LABS: SGPT/ALT 29 U/L (13-61)
[2022-02-09 03:41] LABS: CREATININE 0.9 mg/dL (0.55-1.3); SGOT/AST 20 U/L (15-37)
[2022-02-09 03:43] LABS: ALK PHOS 108 U/L (45-117); BILIRUBIN,TOTAL 0.4 mg/dL (0.2-1); TOT PROT 7.2 g/dl (6.4-8.2)
[2022-02-09 03:52] LABS: VENOUS BASE EXCESS -2.6 mmol/L (-2-2); VENOUS O2 SATURATION 41.9 % (70-80); VENOUS PH 7.231 (7.310-7.410)
[2022-02-09] MEDS ORDERED: ASPIRIN 81 MG CHEWABLE TABLETS PO ONE (04:08)
[2022-02-09] MEDS ORDERED: ASPIRIN 81 MG CHEWABLE TABLETS ONE (04:16)
[2022-02-09] MEDS ORDERED: FUROSEMIDE 40 MG/4 ML INJECTABLE VIAL IVPUSH ONE (05:38)
[2022-02-09] MEDS ORDERED: DEXTROSE 50%-WATER - 25 GM/50 ML VIAL IVPUSH ONE (05:40)
[2022-02-09] MEDS ORDERED: DEXTROSE 50%-WATER 25 GM/50 ML DISP.SYRIN ONE (05:40)
[2022-02-09] MEDS ORDERED: FUROSEMIDE 40 MG/4 ML INJECTABLE VIAL ONE ×2 (05:47→14:15)
[2022-02-09] MEDS ORDERED: ALBUTEROL SO4 HFA INHALER IH PRN (09:13)
[2022-02-09] MEDS: SPIRONOLACTONE 25 MG TABLET PO SCH (10:48)
[2022-02-09] MEDS: methylPREDNISolone NA SUCC 40 MG/1 ML VIAL IVPUSH SCH ×2 (10:48→17:01)
[2022-02-09] MEDS: LISINOPRIL 20 MG TABLET PO SCH (10:48)
[2022-02-09] MEDS ORDERED: LISINOPRIL 20 MG TABLET ONE (10:50)
[2022-02-09] MEDS ORDERED: SPIRONOLACTONE 25 MG TABLET ONE (10:50)
[2022-02-09] MEDS ORDERED: methylPREDNISolone NA SUCC 40 MG/1 ML VIAL ONE ×2 (10:51→16:52)
[2022-02-09] MEDS: INSULIN SLIDING SCALE (NOVOLOG) 1 VIAL SQ SCH ×3 (11:10→23:01)
[2022-02-09] MEDS: FUROSEMIDE 40 MG/4 ML INJECTABLE VIAL IVPUSH SCH (14:35)
[2022-02-09] MEDS ORDERED: ATORVASTATIN CA 40 MG TABLET (FP) ONE (22:01)
[2022-02-09] MEDS: ATORVASTATIN CA 40 MG TABLET (FP) PO SCH (22:04)
[2022-02-09 22:49] VITALS: BMI 52.3
[2022-02-10] MEDS: methylPREDNISolone NA SUCC 40 MG/1 ML VIAL IVPUSH SCH ×2 (01:34→09:25)
[2022-02-10] MEDS: ALBUTEROL SO4 2.5/IPRATROPIUM 0.5 INH SOL 3 ML VIAL.NEB. NEB SCH ×5 (04:48→20:05)
[2022-02-10] MEDS: FUROSEMIDE 40 MG/4 ML INJECTABLE VIAL IVPUSH SCH ×2 (06:10→14:09)
[2022-02-10] MEDS: INSULIN SLIDING SCALE (NOVOLOG) 1 VIAL SQ SCH ×4 (06:16→21:43)
[2022-02-10 08:58] LABS: BASO % 0.2 % (0-2.0); HEMATOCRIT 41.6 % (32.4-45.2); HEMOGLOBIN 13.1 GM/dL (10.7-15.3); LYMPH % 12.2 % (8-40); MCH 25.2 pg (25.7-33.7); MCHC 31.5 g/dl (32.0-36.0); MEAN CELL VOLUME 79.9 fl (80-96); MEAN PLT VOLUME 8.9 fl (7.5-11.1); MONO % 3.3 % (3.8-10.2); NEUT % 84.3 % (42.8-82.8); PLATELET COUNT 274 10^3/uL (134-434); RBC 5.21 M/mm3 (3.60-5.2); WHITE BLOOD COUNT 15.1 K/mm3 (4.0-10.0)
[2022-02-10 09:10] LABS: CALCIUM 9.3 mg/dL (8.5-10.1)
[2022-02-10 09:11] LABS: ALBUMIN 3.4 g/dl (3.4-5.0); BLOOD UREA NITROGEN 19.4 mg/dL (7-18)
[2022-02-10 09:16] LABS: BILIRUBIN,TOTAL 0.3 mg/dL (0.2-1); TOT PROT 7.3 g/dl (6.4-8.2)
[2022-02-10] MEDS: SPIRONOLACTONE 25 MG TABLET PO SCH (09:25)
[2022-02-10] MEDS: LISINOPRIL 20 MG TABLET PO SCH (09:25)
[2022-02-10] MEDS ORDERED: INSULIN (LEVEMIR) 100 UNITS/ML UNITS SQ SCH ×2 (10:00→22:00)
[2022-02-10 11:16] LABS: ARTERIAL BLD GAS O2 SATURATION 94.7 % (95-98); ARTERIAL BLOOD GAS BASE EXCESS -1.7 mmol/L (-2-2); ARTERIAL BLOOD GAS PO2 73.5 mmHg (80-100); ARTERIAL BLOOD GAS pH 7.388 (7.350-7.450)
[2022-02-10 11:21] LABS: ALLENS TEST POSITIVE
[2022-02-10] MEDS ORDERED: PATIENT'S OWN MEDICATION (NON-FORMULARY) (Insulin Lispro Protamin/Lispro [Humalog Mix 50-5 SQ SCH (14:15)
[2022-02-10 16:09] VITALS: RESP 18
[2022-02-10] MEDS ORDERED: LABETALOL HCL 200 MG TABLET (FP) PO ONE (16:09)
[2022-02-10] MEDS: ATORVASTATIN CA 40 MG TABLET (FP) PO SCH (21:38)
[2022-02-10] MEDS: INSULIN (LEVEMIR) 100 UNITS/ML UNITS SQ SCH (21:41)
[2022-02-11] MEDS: ALBUTEROL SO4 2.5/IPRATROPIUM 0.5 INH SOL 3 ML VIAL.NEB. NEB SCH ×5 (04:00→15:26)
[2022-02-11] MEDS: INSULIN (LEVEMIR) 100 UNITS/ML UNITS SQ SCH (06:18)
[2022-02-11] MEDS: INSULIN SLIDING SCALE (NOVOLOG) 1 VIAL SQ SCH ×2 (06:18→12:04)
[2022-02-11] MEDS: FUROSEMIDE 40 MG/4 ML INJECTABLE VIAL IVPUSH SCH (06:18)
[2022-02-11 09:21] LABS: BASO % 0.6 % (0-2.0); EOS % 0.7 % (0-4.5); HEMATOCRIT 42.3 % (32.4-45.2); HEMOGLOBIN 13.4 GM/dL (10.7-15.3); MCH 25.3 pg (25.7-33.7); MCHC 31.8 g/dl (32.0-36.0); MEAN CELL VOLUME 79.5 fl (80-96); MEAN PLT VOLUME 8.8 fl (7.5-11.1); MONO % 4.9 % (3.8-10.2); NEUT % 48.8 % (42.8-82.8); PLATELET COUNT 260 10^3/uL (134-434); RBC 5.31 M/mm3 (3.60-5.2); WHITE BLOOD COUNT 10.5 K/mm3 (4.0-10.0)
[2022-02-11] MEDS: LISINOPRIL 20 MG TABLET PO SCH (09:23)
[2022-02-11] MEDS: SPIRONOLACTONE 25 MG TABLET PO SCH (09:23)
[2022-02-11] MEDS: methylPREDNISolone NA SUCC 40 MG/1 ML VIAL IVPUSH SCH (09:23)
[2022-02-11 11:02] LABS: ALBUMIN 3.4 g/dl (3.4-5.0); BLOOD UREA NITROGEN 23.2 mg/dL (7-18); CALCIUM 9.3 mg/dL (8.5-10.1)
[2022-02-11 11:05] LABS: BILIRUBIN,TOTAL 0.4 mg/dL (0.2-1); PHOSPHOROUS 3.3 mg/dL (2.5-4.9); TOT PROT 7.2 g/dl (6.4-8.2)
[2022-02-11 11:07] LABS: CREATININE 0.9 mg/dL (0.55-1.3)
[2022-02-11] MEDS ORDERED: FUROSEMIDE 40 MG TABLET (FP) PO SCH (14:00)
[2022-02-11 15:52] VITALS: BP 128/88; PULSE 99; TEMP 98
== END 2022-02-11 15:51 | disposition home or self-care (01) ==
LOC: JER 01:56 → JERBED 05:05 → UNDOADMOB 05:05 → INTOOBSV 05:05 → JERBED 09:10 → J4S 22:36
PROVIDERS: ADMIT Internal Medicine; ATTEND Internal Medicine
PROC: 3E0F7GC Introduction of Other Therapeutic Substance into Respiratory Tract, Via Natural or Artificial Opening (ICD-10-PCS; principal; 2022-02-09)
PROC: 3E033GC Introduction of Other Therapeutic Substance into Peripheral Vein, Percutaneous Approach (ICD-10-PCS; 2022-02-09)
PROC: 3E013VG Introduction of Insulin into Subcutaneous Tissue, Percutaneous Approach (ICD-10-PCS; 2022-02-09)
PROC: 3E033GC Introduction of Other Therapeutic Substance into Peripheral Vein, Percutaneous Approach (ICD-10-PCS; 2022-02-09)
DX: I11.0 Hypertensive heart disease with heart failure (principal); I50.43 Acute on chronic combined systolic (congestive) and diastolic (congestive) heart failure; R77.8 Other specified abnormalities of plasma proteins; J44.1 Chronic obstructive pulmonary disease with (acute) exacerbation; R06.02 Shortness of breath; Z91.013 Allergy to seafood; Z91.012 Allergy to eggs; Z88.6 Allergy status to analgesic agent; Z91.09 Other allergy status, other than to drugs and biological substances; E66.01 Morbid (severe) obesity due to excess calories; Z68.43 Body mass index [BMI] 50.0-59.9, adult
CPT/HCPCS: 0241U-QW; 36415; 36600; 71045-TC-FY; 80053; 82803; 82962; 83036; 83735; 83880; 84100; 84484; 85025; 93005; 93010; 93306-TC; 94640; 94660; 99285-25; G0378

== ENCOUNTER 2022-06-01 15:20 | Inpatient (IN) | payer OTHER ==
[2022-06-01 18:23] LABS: BASO % 0.6 % (0-2.0); EOS % 1.9 % (0-4.5); HEMATOCRIT 42.5 % (32.4-45.2); HEMOGLOBIN 13.7 GM/dL (10.7-15.3); LYMPH % 50.5 % (8-40); MCH 25.8 pg (25.7-33.7); MCHC 32.3 g/dl (32.0-36.0); MEAN PLT VOLUME 8.7 fl (7.5-11.1); MONO % 6.2 % (3.8-10.2); NEUT % 40.8 % (42.8-82.8); PLATELET COUNT 270 10^3/uL (134-434); RBC 5.31 M/mm3 (3.60-5.2); RDW 15.1 % (11.6-15.6); WHITE BLOOD COUNT 8.8 K/mm3 (4.0-10.0)
[2022-06-01 18:31] LABS: INR 1.13 (0.83-1.09); PROTHROMBIN TIME (PATIENT) 13.1 SEC (9.7-13.0)
[2022-06-01 18:34] LABS: ACTIVATED PTT 36.4 SECONDS (25.2-36.5)
[2022-06-01 18:43] LABS: CALCIUM 9.4 mg/dL (8.5-10.1)
[2022-06-01 18:44] LABS: ALBUMIN 3.5 g/dl (3.4-5.0); BLOOD UREA NITROGEN 13.9 mg/dL (7-18)
[2022-06-01 18:47] LABS: PHOSPHOROUS 3.7 mg/dL (2.5-4.9)
[2022-06-01 18:48] LABS: BILIRUBIN,TOTAL 0.5 mg/dL (0.2-1)
[2022-06-01 18:49] LABS: TOT PROT 7.2 g/dl (6.4-8.2)
[2022-06-01 20:43] LABS: VENOUS BASE EXCESS -1.6 mmol/L (-2-2); VENOUS O2 SATURATION 57.2 % (70-80); VENOUS PCO2 48.3 mmHg (38-52); VENOUS PH 7.329 (7.310-7.410)
[2022-06-01] MEDS ORDERED: ALBUTEROL SO4 HFA INHALER IH PRN (22:34)
[2022-06-01] MEDS ORDERED: METOPROLOL TARTRATE 5 MG/5 ML VIAL IVPUSH ONE (22:48)
[2022-06-01] MEDS ORDERED: METOPROLOL TARTRATE 5 MG/5 ML VIAL ONE (22:51)
[2022-06-01] MEDS ORDERED: ACETAMINOPHEN 325 MG TABLET (FP) PO PRN (22:58)
[2022-06-01] MEDS ORDERED: ACETAMINOPHEN 325 MG TABLET (FP) ONE (23:10)
[2022-06-02 06:58] LABS: BASO % 1.1 % (0-2.0); EOS % 2.6 % (0-4.5); HEMATOCRIT 42.2 % (32.4-45.2); HEMOGLOBIN 13.7 GM/dL (10.7-15.3); LYMPH % 45.7 % (8-40); MCH 26.5 pg (25.7-33.7); MCHC 32.5 g/dl (32.0-36.0); MEAN CELL VOLUME 81.4 fl (80-96); MONO % 5.8 % (3.8-10.2); NEUT % 44.8 % (42.8-82.8); PLATELET COUNT 250 10^3/uL (134-434); RBC 5.18 M/mm3 (3.60-5.2); WHITE BLOOD COUNT 7.8 K/mm3 (4.0-10.0)
[2022-06-02 07:04] LABS: CALCIUM 9.3 mg/dL (8.5-10.1)
[2022-06-02 07:05] LABS: ALBUMIN 3.2 g/dl (3.4-5.0); BLOOD UREA NITROGEN 14.7 mg/dL (7-18)
[2022-06-02 07:08] LABS: CREATININE 0.9 mg/dL (0.55-1.3)
[2022-06-02 07:10] LABS: BILIRUBIN,TOTAL 0.6 mg/dL (0.2-1); TOT PROT 6.7 g/dl (6.4-8.2)
[2022-06-02 09:10] VITALS: BMI 51.3
[2022-06-02] MEDS: NICOTINE 7 MG/24 HOURS TOPICAL PATCH TD SCH (10:33)
[2022-06-02] MEDS: FLUTICASONE/UMECLIDIN/VILANTER(200-62.5-25 TRELEGY ELLIPTA) INAHLER IH SCH (10:33)
[2022-06-02] MEDS ORDERED: SIMETHICONE 80 MG TAB.CHEW (FP) PO PRN (12:23)
[2022-06-02] MEDS: FUROSEMIDE 40 MG/4 ML INJECTABLE VIAL IVPUSH SCH (13:02)
[2022-06-02] MEDS: ATORVASTATIN CA 40 MG TABLET (FP) PO SCH (21:42)
[2022-06-02] MEDS: DRONEDARONE HCL 400 MG TAB (FP) PO SCH (21:42)
[2022-06-02] MEDS: INSULIN (LEVEMIR) 100 UNITS/ML UNITS SQ SCH (21:43)
[2022-06-02] MEDS: PRAMIPEXOLE DIHYDROCHLORIDE 0.5 MG TABLET PO SCH (21:43)
[2022-06-02] MEDS: TOPIRAMATE 100 MG TABLET PO SCH (21:43)
[2022-06-03] MEDS: FUROSEMIDE 40 MG/4 ML INJECTABLE VIAL IVPUSH SCH ×2 (05:47→14:05)
[2022-06-03] MEDS: INSULIN (LEVEMIR) 100 UNITS/ML UNITS SQ SCH ×2 (06:08→22:02)
[2022-06-03 08:22] LABS: BASO % 0.6 % (0-2.0); EOS % 3.2 % (0-4.5); HEMATOCRIT 41.9 % (32.4-45.2); HEMOGLOBIN 13.7 GM/dL (10.7-15.3); LYMPH % 54.6 % (8-40); MCH 25.8 pg (25.7-33.7); MCHC 32.7 g/dl (32.0-36.0); MEAN PLT VOLUME 8.9 fl (7.5-11.1); MONO % 5.9 % (3.8-10.2); NEUT % 35.7 % (42.8-82.8); PLATELET COUNT 274 10^3/uL (134-434); RDW 15.1 % (11.6-15.6); WHITE BLOOD COUNT 7.5 K/mm3 (4.0-10.0)
[2022-06-03 09:02] LABS: ALBUMIN 3.4 g/dl (3.4-5.0)
[2022-06-03 09:03] LABS: BLOOD UREA NITROGEN 16.2 mg/dL (7-18); CALCIUM 9.1 mg/dL (8.5-10.1)
[2022-06-03 09:07] LABS: BILIRUBIN,TOTAL 0.5 mg/dL (0.2-1); TOT PROT 7.1 g/dl (6.4-8.2)
[2022-06-03] MEDS: DRONEDARONE HCL 400 MG TAB (FP) PO SCH ×2 (10:50→22:04)
[2022-06-03] MEDS: LISINOPRIL 20 MG TABLET PO SCH (10:51)
[2022-06-03] MEDS: PANTOPRAZOLE 40 MG TABLET PO SCH (10:51)
[2022-06-03] MEDS: TOPIRAMATE 100 MG TABLET PO SCH ×2 (10:51→22:04)
[2022-06-03] MEDS: NICOTINE 7 MG/24 HOURS TOPICAL PATCH TD SCH (10:51)
[2022-06-03] MEDS: FLUTICASONE/UMECLIDIN/VILANTER(200-62.5-25 TRELEGY ELLIPTA) INAHLER IH SCH (10:52)
[2022-06-03] MEDS: ENOXAPARIN NA (PORCINE) 40 MG/0.4 ML DISP.SYRIN SQ SCH (14:04)
[2022-06-03] MEDS: ATORVASTATIN CA 40 MG TABLET (FP) PO SCH (22:04)
[2022-06-03] MEDS: PRAMIPEXOLE DIHYDROCHLORIDE 0.5 MG TABLET PO SCH (22:04)
[2022-06-04] MEDS: FUROSEMIDE 40 MG/4 ML INJECTABLE VIAL IVPUSH SCH ×2 (06:11→13:00)
[2022-06-04] MEDS: INSULIN (LEVEMIR) 100 UNITS/ML UNITS SQ SCH ×2 (06:14→21:57)
[2022-06-04 08:53] LABS: CALCIUM 8.8 mg/dL (8.5-10.1); MAGNESIUM 2.1 mg/dL (1.8-2.4)
[2022-06-04 08:54] LABS: BLOOD UREA NITROGEN 14.2 mg/dL (7-18)
[2022-06-04] MEDS: ENOXAPARIN NA (PORCINE) 40 MG/0.4 ML DISP.SYRIN SQ SCH (10:30)
[2022-06-04] MEDS: DRONEDARONE HCL 400 MG TAB (FP) PO SCH ×2 (10:31→21:57)
[2022-06-04] MEDS: NICOTINE 7 MG/24 HOURS TOPICAL PATCH TD SCH (10:32)
[2022-06-04] MEDS: PANTOPRAZOLE 40 MG TABLET PO SCH (10:33)
[2022-06-04] MEDS: LISINOPRIL 20 MG TABLET PO SCH (10:33)
[2022-06-04] MEDS: TOPIRAMATE 100 MG TABLET PO SCH ×2 (10:33→21:57)
[2022-06-04] MEDS: FLUTICASONE/UMECLIDIN/VILANTER(200-62.5-25 TRELEGY ELLIPTA) INAHLER IH SCH (10:33)
[2022-06-04] MEDS: PRAMIPEXOLE DIHYDROCHLORIDE 0.5 MG TABLET PO SCH (21:57)
[2022-06-04] MEDS: ATORVASTATIN CA 40 MG TABLET (FP) PO SCH (21:57)
[2022-06-05] MEDS: FUROSEMIDE 40 MG/4 ML INJECTABLE VIAL IVPUSH SCH ×2 (06:52→15:11)
[2022-06-05] MEDS: INSULIN (LEVEMIR) 100 UNITS/ML UNITS SQ SCH ×2 (06:52→21:23)
[2022-06-05 09:20] LABS: BLOOD UREA NITROGEN 17.3 mg/dL (7-18); CALCIUM 8.8 mg/dL (8.5-10.1)
[2022-06-05 09:21] LABS: MAGNESIUM 2.3 mg/dL (1.8-2.4)
[2022-06-05 09:23] LABS: PHOSPHOROUS 3.9 mg/dL (2.5-4.9)
[2022-06-05] MEDS: ENOXAPARIN NA (PORCINE) 40 MG/0.4 ML DISP.SYRIN SQ SCH (09:55)
[2022-06-05] MEDS: NICOTINE 7 MG/24 HOURS TOPICAL PATCH TD SCH (09:56)
[2022-06-05] MEDS: LISINOPRIL 20 MG TABLET PO SCH (09:57)
[2022-06-05] MEDS: DRONEDARONE HCL 400 MG TAB (FP) PO SCH (09:58)
[2022-06-05] MEDS: TOPIRAMATE 100 MG TABLET PO SCH ×2 (09:58→21:23)
[2022-06-05] MEDS: PANTOPRAZOLE 40 MG TABLET PO SCH (09:59)
[2022-06-05] MEDS: FLUTICASONE/UMECLIDIN/VILANTER(200-62.5-25 TRELEGY ELLIPTA) INAHLER IH SCH (15:15)
[2022-06-05] MEDS: ATORVASTATIN CA 40 MG TABLET (FP) PO SCH (21:22)
[2022-06-05] MEDS: PRAMIPEXOLE DIHYDROCHLORIDE 0.5 MG TABLET PO SCH (21:23)
[2022-06-05] MEDS: AMIODARONE HCL 200 MG TABLET PO SCH (21:54)
[2022-06-06] MEDS: FUROSEMIDE 40 MG/4 ML INJECTABLE VIAL IVPUSH SCH ×2 (05:44→13:25)
[2022-06-06] MEDS: INSULIN (LEVEMIR) 100 UNITS/ML UNITS SQ SCH ×2 (06:24→21:31)
[2022-06-06 08:31] LABS: BASO % 0.5 % (0-2.0); HEMATOCRIT 41.5 % (32.4-45.2); HEMOGLOBIN 13.9 GM/dL (10.7-15.3); LYMPH % 46.9 % (8-40); MCH 26.8 pg (25.7-33.7); MCHC 33.5 g/dl (32.0-36.0); MEAN CELL VOLUME 80.1 fl (80-96); MEAN PLT VOLUME 8.8 fl (7.5-11.1); MONO % 6.1 % (3.8-10.2); NEUT % 44.5 % (42.8-82.8); PLATELET COUNT 257 10^3/uL (134-434); RBC 5.19 M/mm3 (3.60-5.2); RDW 15.1 % (11.6-15.6); WHITE BLOOD COUNT 8.2 K/mm3 (4.0-10.0)
[2022-06-06 08:46] LABS: CALCIUM 9.1 mg/dL (8.5-10.1); MAGNESIUM 2.1 mg/dL (1.8-2.4)
[2022-06-06 08:47] LABS: BLOOD UREA NITROGEN 17.6 mg/dL (7-18)
[2022-06-06 08:50] LABS: PHOSPHOROUS 3.6 mg/dL (2.5-4.9)
[2022-06-06] MEDS: ENOXAPARIN NA (PORCINE) 40 MG/0.4 ML DISP.SYRIN SQ SCH (09:35)
[2022-06-06] MEDS: NICOTINE 7 MG/24 HOURS TOPICAL PATCH TD SCH (09:36)
[2022-06-06] MEDS: PANTOPRAZOLE 40 MG TABLET PO SCH (09:36)
[2022-06-06] MEDS: LISINOPRIL 20 MG TABLET PO SCH (09:36)
[2022-06-06] MEDS: AMIODARONE HCL 200 MG TABLET PO SCH ×2 (09:36→21:32)
[2022-06-06] MEDS: TOPIRAMATE 100 MG TABLET PO SCH ×2 (09:37→21:33)
[2022-06-06] MEDS: FLUTICASONE/UMECLIDIN/VILANTER(200-62.5-25 TRELEGY ELLIPTA) INAHLER IH SCH (09:37)
[2022-06-06] MEDS: PRAMIPEXOLE DIHYDROCHLORIDE 0.5 MG TABLET PO SCH (21:32)
[2022-06-06] MEDS: ATORVASTATIN CA 40 MG TABLET (FP) PO SCH (21:32)
[2022-06-07] MEDS: FUROSEMIDE 40 MG TABLET (FP) PO SCH ×2 (06:14→13:36)
[2022-06-07] MEDS: INSULIN (LEVEMIR) 100 UNITS/ML UNITS SQ SCH ×2 (06:19→21:25)
[2022-06-07 07:37] LABS: BASO % 0.6 % (0-2.0); EOS % 2.6 % (0-4.5); HEMATOCRIT 40.3 % (32.4-45.2); HEMOGLOBIN 13.2 GM/dL (10.7-15.3); LYMPH % 45.1 % (8-40); MCH 26.1 pg (25.7-33.7); MCHC 32.7 g/dl (32.0-36.0); MEAN CELL VOLUME 79.8 fl (80-96); MEAN PLT VOLUME 8.6 fl (7.5-11.1); MONO % 5.9 % (3.8-10.2); NEUT % 45.8 % (42.8-82.8); PLATELET COUNT 244 10^3/uL (134-434); RBC 5.04 M/mm3 (3.60-5.2); RDW 15.1 % (11.6-15.6); WHITE BLOOD COUNT 7.4 K/mm3 (4.0-10.0)
[2022-06-07 07:57] LABS: CALCIUM 9.1 mg/dL (8.5-10.1)
[2022-06-07 07:58] LABS: BLOOD UREA NITROGEN 21.1 mg/dL (7-18); MAGNESIUM 2.1 mg/dL (1.8-2.4)
[2022-06-07 08:01] LABS: CREATININE 1.2 mg/dL (0.55-1.3)
[2022-06-07 08:06] LABS: N-TERMINAL BNP 594.1 pg/ml (5-125)
[2022-06-07] MEDS: NICOTINE 7 MG/24 HOURS TOPICAL PATCH TD SCH (09:45)
[2022-06-07] MEDS: FLUTICASONE/UMECLIDIN/VILANTER(200-62.5-25 TRELEGY ELLIPTA) INAHLER IH SCH (09:45)
[2022-06-07] MEDS: PANTOPRAZOLE 40 MG TABLET PO SCH (09:46)
[2022-06-07] MEDS: TOPIRAMATE 100 MG TABLET PO SCH ×2 (09:46→21:26)
[2022-06-07] MEDS: ENOXAPARIN NA (PORCINE) 40 MG/0.4 ML DISP.SYRIN SQ SCH (09:46)
[2022-06-07] MEDS: AMIODARONE HCL 200 MG TABLET PO SCH ×2 (09:46→21:26)
[2022-06-07] MEDS: LISINOPRIL 20 MG TABLET PO SCH (09:46)
[2022-06-07] MEDS: LEVALBUTEROL HCL 0.31 MG/3 ML VIAL.NEB IH SCH ×2 (14:15→19:56)
[2022-06-07] MEDS: ATORVASTATIN CA 40 MG TABLET (FP) PO SCH (21:26)
[2022-06-07] MEDS: PRAMIPEXOLE DIHYDROCHLORIDE 0.5 MG TABLET PO SCH (21:26)
[2022-06-08] MEDS: FUROSEMIDE 40 MG TABLET (FP) PO SCH ×2 (06:20→15:23)
[2022-06-08] MEDS: INSULIN (LEVEMIR) 100 UNITS/ML UNITS SQ SCH ×2 (06:21→21:21)
[2022-06-08] MEDS: LEVALBUTEROL HCL 0.31 MG/3 ML VIAL.NEB IH SCH ×3 (07:20→20:11)
[2022-06-08 07:52] LABS: BASO % 0.4 % (0-2.0); EOS % 2.7 % (0-4.5); HEMATOCRIT 40.7 % (32.4-45.2); HEMOGLOBIN 13.3 GM/dL (10.7-15.3); LYMPH % 47.3 % (8-40); MCH 26.4 pg (25.7-33.7); MCHC 32.8 g/dl (32.0-36.0); MEAN CELL VOLUME 80.4 fl (80-96); MONO % 6.6 % (3.8-10.2); PLATELET COUNT 249 10^3/uL (134-434); RBC 5.06 M/mm3 (3.60-5.2); WHITE BLOOD COUNT 7.6 K/mm3 (4.0-10.0)
[2022-06-08 08:01] LABS: BLOOD UREA NITROGEN 20.4 mg/dL (7-18)
[2022-06-08] MEDS ORDERED: REGADENOSON 0.4 MG/5 ML PRE-FILLED SYRINGE IVPUSH ONE ×2 (09:24→09:45)
[2022-06-08] MEDS: ENOXAPARIN NA (PORCINE) 40 MG/0.4 ML DISP.SYRIN SQ SCH (13:03)
[2022-06-08] MEDS: AMIODARONE HCL 200 MG TABLET PO SCH ×2 (13:03→21:20)
[2022-06-08] MEDS: PANTOPRAZOLE 40 MG TABLET PO SCH (13:04)
[2022-06-08] MEDS: LISINOPRIL 20 MG TABLET PO SCH (13:04)
[2022-06-08] MEDS: TOPIRAMATE 100 MG TABLET PO SCH ×2 (13:05→21:20)
[2022-06-08] MEDS: FLUTICASONE/UMECLIDIN/VILANTER(200-62.5-25 TRELEGY ELLIPTA) INAHLER IH SCH (13:08)
[2022-06-08] MEDS: NICOTINE 7 MG/24 HOURS TOPICAL PATCH TD SCH (18:16)
[2022-06-08] MEDS: PRAMIPEXOLE DIHYDROCHLORIDE 0.5 MG TABLET PO SCH (21:20)
[2022-06-08] MEDS: ATORVASTATIN CA 40 MG TABLET (FP) PO SCH (21:20)
[2022-06-08] MEDS: INSULIN SLIDING SCALE (NOVOLOG) 1 VIAL SQ SCH (21:21)
[2022-06-09] MEDS: FUROSEMIDE 40 MG TABLET (FP) PO SCH ×2 (06:04→13:27)
[2022-06-09] MEDS: INSULIN (LEVEMIR) 100 UNITS/ML UNITS SQ SCH ×2 (06:05→21:18)
[2022-06-09] MEDS: INSULIN SLIDING SCALE (NOVOLOG) 1 VIAL SQ SCH ×5 (06:05→21:25)
[2022-06-09 08:13] LABS: HEMATOCRIT 39.3 % (32.4-45.2); HEMOGLOBIN 12.9 GM/dL (10.7-15.3); MCH 26.4 pg (25.7-33.7); MCHC 32.7 g/dl (32.0-36.0); MEAN CELL VOLUME 80.7 fl (80-96); MEAN PLT VOLUME 8.8 fl (7.5-11.1); PLATELET COUNT 229 10^3/uL (134-434); RBC 4.87 M/mm3 (3.60-5.2); RDW 14.8 % (11.6-15.6); WHITE BLOOD COUNT 6.6 K/mm3 (4.0-10.0)
[2022-06-09 08:37] LABS: CALCIUM 8.9 mg/dL (8.5-10.1)
[2022-06-09 08:38] LABS: BLOOD UREA NITROGEN 18.4 mg/dL (7-18); MAGNESIUM 2.1 mg/dL (1.8-2.4)
[2022-06-09 08:41] LABS: PHOSPHOROUS 3.9 mg/dL (2.5-4.9)
[2022-06-09] MEDS: LEVALBUTEROL HCL 0.31 MG/3 ML VIAL.NEB IH SCH ×3 (08:54→19:21)
[2022-06-09] MEDS: LISINOPRIL 20 MG TABLET PO SCH (09:46)
[2022-06-09] MEDS: PANTOPRAZOLE 40 MG TABLET PO SCH (09:46)
[2022-06-09] MEDS: AMIODARONE HCL 200 MG TABLET PO SCH ×2 (09:46→21:18)
[2022-06-09] MEDS: ENOXAPARIN NA (PORCINE) 40 MG/0.4 ML DISP.SYRIN SQ SCH (09:46)
[2022-06-09] MEDS: TOPIRAMATE 100 MG TABLET PO SCH ×2 (09:48→21:19)
[2022-06-09] MEDS: NICOTINE 7 MG/24 HOURS TOPICAL PATCH TD SCH (09:48)
[2022-06-09] MEDS: FLUTICASONE/UMECLIDIN/VILANTER(200-62.5-25 TRELEGY ELLIPTA) INAHLER IH SCH (09:50)
[2022-06-09] MEDS: ATORVASTATIN CA 40 MG TABLET (FP) PO SCH (21:18)
[2022-06-09] MEDS: PRAMIPEXOLE DIHYDROCHLORIDE 0.5 MG TABLET PO SCH (21:19)
[2022-06-10] MEDS: FUROSEMIDE 40 MG TABLET (FP) PO SCH ×2 (05:56→14:19)
[2022-06-10] MEDS: INSULIN SLIDING SCALE (NOVOLOG) 1 VIAL SQ SCH ×3 (06:04→16:37)
[2022-06-10] MEDS: INSULIN (LEVEMIR) 100 UNITS/ML UNITS SQ SCH (06:04)
[2022-06-10 07:09] LABS: HEMATOCRIT 39.2 % (32.4-45.2); HEMOGLOBIN 12.9 GM/dL (10.7-15.3); MCH 26.4 pg (25.7-33.7); MEAN PLT VOLUME 8.6 fl (7.5-11.1); PLATELET COUNT 217 10^3/uL (134-434); RDW 14.5 % (11.6-15.6)
[2022-06-10 07:17] LABS: BLOOD UREA NITROGEN 14.8 mg/dL (7-18); CALCIUM 8.7 mg/dL (8.5-10.1)
[2022-06-10 07:22] LABS: BILIRUBIN,TOTAL 0.4 mg/dL (0.2-1); TOT PROT 6.4 g/dl (6.4-8.2)
[2022-06-10] MEDS: LEVALBUTEROL HCL 0.31 MG/3 ML VIAL.NEB IH SCH ×3 (09:16→20:39)
[2022-06-10] MEDS: PANTOPRAZOLE 40 MG TABLET PO SCH (09:56)
[2022-06-10] MEDS: AMIODARONE HCL 200 MG TABLET PO SCH (09:56)
[2022-06-10] MEDS: NICOTINE 7 MG/24 HOURS TOPICAL PATCH TD SCH (09:56)
[2022-06-10] MEDS: LISINOPRIL 20 MG TABLET PO SCH (09:56)
[2022-06-10] MEDS: TOPIRAMATE 100 MG TABLET PO SCH (09:57)
[2022-06-10] MEDS: FLUTICASONE/UMECLIDIN/VILANTER(200-62.5-25 TRELEGY ELLIPTA) INAHLER IH SCH (09:58)
[2022-06-10 23:06] VITALS: BP 151/90; PULSE 93; RESP 18; TEMP 98.5
== END 2022-06-10 21:30 | disposition short-term general hospital (02) | DRG 201 ==
LOC: JER 15:20 → JERBED 20:34 → J4S 06-02 08:33
PROVIDERS: ADMIT Internal Medicine; ATTEND Internal Medicine
DX: I47.1 Supraventricular tachycardia (principal); J44.1 Chronic obstructive pulmonary disease with (acute) exacerbation; I11.0 Hypertensive heart disease with heart failure; I50.33 Acute on chronic diastolic (congestive) heart failure; E78.5 Hyperlipidemia, unspecified; E11.9 Type 2 diabetes mellitus without complications; G47.33 Obstructive sleep apnea (adult) (pediatric); K44.9 Diaphragmatic hernia without obstruction or gangrene; K42.9 Umbilical hernia without obstruction or gangrene; N32.81 Overactive bladder; I24.8 Other forms of acute ischemic heart disease; E66.01 Morbid (severe) obesity due to excess calories; Z68.43 Body mass index [BMI] 50.0-59.9, adult; I25.10 Atherosclerotic heart disease of native coronary artery without angina pectoris; I27.20 Pulmonary hypertension, unspecified; E88.81 Metabolic syndrome and other insulin resistance; R60.0 Localized edema; F17.210 Nicotine dependence, cigarettes, uncomplicated; F41.9 Anxiety disorder, unspecified; G47.31 Primary central sleep apnea
CPT/HCPCS: 0241U-QW; 36415; 71045-TC-FY; 71250-TC; 78452-TC; 80048; 80053; 82803; 82962; 83735; 83880; 84100; 84443; 84484; 85025; 85027; 85610; 85730; 93005; 93010; 93017; 93306-TC; 94660; 99285-25; A9502; C9803-CS; J2785; U0003; U0005

== ENCOUNTER 2023-06-04 17:14 | Inpatient (IN) | payer OTHER ==
[2023-06-04 19:46] LABS: BASO % 0.6 % (0-2.0); EOS % 2.2 % (0-4.5); HEMATOCRIT 43.6 % (32.4-45.2); HEMOGLOBIN 14.2 GM/dL (10.7-15.3); LYMPH % 46.9 % (8-40); MCH 26.3 pg (25.7-33.7); MCHC 32.7 g/dl (32.0-36.0); MEAN CELL VOLUME 80.5 fl (80-96); MEAN PLT VOLUME 8.2 fl (7.5-11.1); MONO % 5.1 % (3.8-10.2); NEUT % 45.2 % (42.8-82.8); PLATELET COUNT 281 10^3/uL (134-434); RBC 5.41 M/mm3 (3.60-5.2); RDW 14.3 % (11.6-15.6); WHITE BLOOD COUNT 8.2 K/mm3 (4.0-10.0)
[2023-06-04 20:24] LABS: POTASSIUM 4.3 mmol/L (3.5-5.1)
[2023-06-04 20:27] LABS: ALBUMIN 3.2 g/dl (3.4-5.0); BLOOD UREA NITROGEN 12.2 mg/dL (7-18); CALCIUM 9.2 mg/dL (8.5-10.1)
[2023-06-04 20:29] LABS: CREATININE 0.9 mg/dL (0.55-1.3)
[2023-06-04 20:31] LABS: BILIRUBIN,TOTAL 0.3 mg/dL (0.2-1); TOT PROT 7.1 g/dl (6.4-8.2)
[2023-06-04 20:34] LABS: N-TERMINAL BNP 345.8 pg/ml (5-125)
[2023-06-04 20:38] LABS: EPI CELLS >36 /uL (0-25.1); HYALINE CASTS 1 /uL (0-3.1); PH,URINE 5.5 (5.0-8.0); URINE APPEARANCE CLEAR; URINE BACTERIA 486 /uL (0-1359); URINE BILIRUBIN NEGATIVE (NEGATIVE); URINE COLOR YELLOW; URINE GLUCOSE (UA) NEGATIVE (NEGATIVE); URINE KETONE TRACE (NEGATIVE); URINE LEUK ESTERASE 1+ (NEGATIVE); URINE NITRITE NEGATIVE (NEGATIVE); URINE PROTEIN NEGATIVE (NEGATIVE); URINE RBC 7 /uL (0-23.9); URINE WBC 49 /uL (0-25.8)
[2023-06-04 21:35] LABS: INR 1.05 (0.83-1.09); PROTHROMBIN TIME (PATIENT) 12.2 SEC (9.7-13.0)
[2023-06-04 22:18] LABS: MAGNESIUM 2.1 mg/dL (1.8-2.4)
[2023-06-05] MEDS ORDERED: ALBUTEROL SO4 HFA INHALER IH PRN (01:35)
[2023-06-05 03:08] VITALS: BMI 52.0
[2023-06-05] MEDS: INSULIN ASPART SLIDING SCALE (NOVOLOG) 1 VIAL SQ SCH ×2 (06:39→17:24)
[2023-06-05] MEDS: FUROSEMIDE 40 MG TABLET (FP) PO SCH (06:39)
[2023-06-05 08:11] LABS: BASO % 0.6 % (0-2.0); EOS % 1.6 % (0-4.5); HEMATOCRIT 40.5 % (32.4-45.2); HEMOGLOBIN 13.5 GM/dL (10.7-15.3); LYMPH % 44.1 % (8-40); MCH 26.7 pg (25.7-33.7); MCHC 33.4 g/dl (32.0-36.0); MEAN CELL VOLUME 80.1 fl (80-96); MEAN PLT VOLUME 8.6 fl (7.5-11.1); NEUT % 46.7 % (42.8-82.8); PLATELET COUNT 243 10^3/uL (134-434); RBC 5.06 M/mm3 (3.60-5.2); RDW 13.9 % (11.6-15.6); WHITE BLOOD COUNT 8.8 K/mm3 (4.0-10.0)
[2023-06-05 08:25] LABS: POTASSIUM 4.1 mmol/L (3.5-5.1)
[2023-06-05 08:33] LABS: ALBUMIN 2.9 g/dl (3.4-5.0); BLOOD UREA NITROGEN 18.4 mg/dL (7-18); MAGNESIUM 1.9 mg/dL (1.8-2.4)
[2023-06-05 08:36] LABS: BILIRUBIN,TOTAL 0.4 mg/dL (0.2-1); PHOSPHOROUS 4.4 mg/dL (2.5-4.9); TOT PROT 6.5 g/dl (6.4-8.2)
[2023-06-05 08:41] LABS: LDL CHOLESTEROL (ONLY SJRH) 81 mg/dL (5-100)
[2023-06-05] MEDS: TOPIRAMATE 100 MG TABLET PO SCH (09:53)
[2023-06-05] MEDS: NICOTINE 14 MG/24 HOURS TOPICAL PATCH TD SCH (09:53)
[2023-06-05] MEDS: SPIRONOLACTONE 25 MG TABLET PO SCH (09:53)
[2023-06-05] MEDS: ENOXAPARIN NA (PORCINE) 40 MG/0.4 ML DISP.SYRIN SQ SCH (09:53)
[2023-06-05] MEDS: SACUBITRIL/VALSARTAN 97 MG-103 MG TABLET PO SCH (11:20)
[2023-06-05] MEDS: FLUTICASONE/UMECLIDIN/VILANTER(200-62.5-25 TRELEGY ELLIPTA) INAHLER IH SCH (11:20)
[2023-06-05 13:25] LABS: CHOLESTEROL 144 mg/dL (50-200); HDL CHOLESTEROL 31 mg/dL (40-60)
[2023-06-05] MEDS: INSULIN (LEVEMIR) 100 UNITS/ML UNITS SQ SCH ×2 (13:38→21:50)
[2023-06-05] MEDS: FUROSEMIDE 40 MG/4 ML INJECTABLE VIAL IVPUSH SCH (14:22)
[2023-06-05] MEDS: DRONEDARONE HCL 400 MG TAB (FP) PO SCH (15:47)
[2023-06-05] MEDS: MAGNESIUM OXIDE 400 MG TABLET (FP) PO SCH (21:44)
[2023-06-05] MEDS: PRAMIPEXOLE DIHYDROCHLORIDE 0.5 MG TABLET PO SCH (21:44)
[2023-06-05] MEDS: ATORVASTATIN CA 40 MG TABLET (FP) PO SCH (21:44)
[2023-06-05] MEDS: CYCLOBENZAPRINE HCL 5 MG TABLET PO SCH (22:20)
[2023-06-06 07:31] LABS: POTASSIUM 4.1 mmol/L (3.5-5.1)
[2023-06-06 07:35] LABS: ALBUMIN 2.9 g/dl (3.4-5.0); CALCIUM 8.8 mg/dL (8.5-10.1)
[2023-06-06 07:36] LABS: BLOOD UREA NITROGEN 17.7 mg/dL (7-18)
[2023-06-06 07:40] LABS: BILIRUBIN,TOTAL 0.4 mg/dL (0.2-1); TOT PROT 6.5 g/dl (6.4-8.2)
[2023-06-06 08:20] LABS: BASO % 0.5 % (0-2.0); EOS % 2.2 % (0-4.5); HEMATOCRIT 41.2 % (32.4-45.2); HEMOGLOBIN 13.2 GM/dL (10.7-15.3); LYMPH % 48.8 % (8-40); MCHC 32.1 g/dl (32.0-36.0); MEAN CELL VOLUME 81.1 fl (80-96); MEAN PLT VOLUME 8.7 fl (7.5-11.1); MONO % 7.2 % (3.8-10.2); NEUT % 41.3 % (42.8-82.8); PLATELET COUNT 239 10^3/uL (134-434); RBC 5.08 M/mm3 (3.60-5.2); RDW 13.8 % (11.6-15.6); WHITE BLOOD COUNT 7.8 K/mm3 (4.0-10.0)
[2023-06-07 08:28] LABS: BLOOD UREA NITROGEN 19.5 mg/dL (7-18); MAGNESIUM 2.2 mg/dL (1.8-2.4)
[2023-06-07 08:31] LABS: CALCIUM 9.4 mg/dL (8.5-10.1); CREATININE 0.9 mg/dL (0.55-1.3)
[2023-06-07 08:51] LABS: BASO % 0.5 % (0-2.0); EOS % 2.6 % (0-4.5); HEMATOCRIT 40.1 % (32.4-45.2); HEMOGLOBIN 12.9 GM/dL (10.7-15.3); LYMPH % 47.2 % (8-40); MCH 26.1 pg (25.7-33.7); MCHC 32.2 g/dl (32.0-36.0); MEAN CELL VOLUME 80.9 fl (80-96); MEAN PLT VOLUME 8.5 fl (7.5-11.1); MONO % 6.2 % (3.8-10.2); NEUT % 43.5 % (42.8-82.8); PLATELET COUNT 223 10^3/uL (134-434); RBC 4.96 M/mm3 (3.60-5.2); RDW 13.8 % (11.6-15.6); WHITE BLOOD COUNT 7.8 K/mm3 (4.0-10.0)
[2023-06-07] MEDS: METHIMAZOLE 10 MG TABLET PO SCH (09:52)
[2023-06-07] MEDS: CEFTRIAXONE 1 GM in DEXTROSE 5%-WATER - 50 ML IVPB SCH (11:17)
[2023-06-08 07:13] LABS: BASO % 0.4 % (0-2.0); EOS % 2.7 % (0-4.5); HEMATOCRIT 42.1 % (32.4-45.2); HEMOGLOBIN 13.7 GM/dL (10.7-15.3); LYMPH % 44.4 % (8-40); MCH 26.3 pg (25.7-33.7); MCHC 32.5 g/dl (32.0-36.0); MEAN CELL VOLUME 81.1 fl (80-96); MEAN PLT VOLUME 8.4 fl (7.5-11.1); MONO % 6.2 % (3.8-10.2); NEUT % 46.3 % (42.8-82.8); PLATELET COUNT 261 10^3/uL (134-434); RBC 5.19 M/mm3 (3.60-5.2); RDW 13.8 % (11.6-15.6); WHITE BLOOD COUNT 7.9 K/mm3 (4.0-10.0)
[2023-06-08 07:34] LABS: POTASSIUM 4.4 mmol/L (3.5-5.1)
[2023-06-08 07:39] LABS: CALCIUM 9.2 mg/dL (8.5-10.1)
[2023-06-08 07:40] LABS: ALBUMIN 3.2 g/dl (3.4-5.0)
[2023-06-08 07:44] LABS: BILIRUBIN,TOTAL 0.4 mg/dL (0.2-1)
[2023-06-08 07:45] LABS: TOT PROT 7.1 g/dl (6.4-8.2)
[2023-06-08 10:05] VITALS: BP 119/77; PULSE 99; RESP 22; TEMP 98.2
[2023-06-09 10:08] LABS: THYROID STIM IMMUNOGLOBULIN 0.18 IU/L (0.00-0.55)
== END 2023-06-08 15:37 | disposition home or self-care (01) | DRG 194 ==
LOC: JER 17:14 → JERBED 23:07 → J4W 06-05 02:45 → OBSVTOIN 06-07 09:19
PROVIDERS: ADMIT Internal Medicine; ATTEND Internal Medicine
DX: I11.0 Hypertensive heart disease with heart failure (principal); I50.23 Acute on chronic systolic (congestive) heart failure; J44.9 Chronic obstructive pulmonary disease, unspecified; G47.33 Obstructive sleep apnea (adult) (pediatric); E78.5 Hyperlipidemia, unspecified; E88.810 Metabolic syndrome; R07.89 Other chest pain; E05.80 Other thyrotoxicosis without thyrotoxic crisis or storm; T46.2X5A Adverse effect of other antidysrhythmic drugs, initial encounter; N39.0 Urinary tract infection, site not specified; B96.4 Proteus (mirabilis) (morganii) as the cause of diseases classified elsewhere; G47.30 Sleep apnea, unspecified; E11.9 Type 2 diabetes mellitus without complications; F17.210 Nicotine dependence, cigarettes, uncomplicated; I47.19 Other supraventricular tachycardia; E66.01 Morbid (severe) obesity due to excess calories; Z68.43 Body mass index [BMI] 50.0-59.9, adult
CPT/HCPCS: 36415; 71045-TC-FY; 80048; 80053; 80061; 81003; 82962; 83036; 83735; 83880; 84100; 84439; 84443; 84445; 84479; 84481; 84484; 85025; 85610; 85730; 87086; 87186; 93005; 93010; 93306-TC; 99285-25; G0378

== ENCOUNTER 2023-09-09 17:46 | Emergency (ER) | payer OTHER ==
[2023-09-09 18:05] VITALS: PULSE 81; RESP 18; BMI 50.1
[2023-09-09 19:11] LABS: BASO % 1.1 % (0-2.0); EOS % 1.9 % (0-4.5); HEMATOCRIT 45.6 % (32.4-45.2); HEMOGLOBIN 14.4 GM/dL (10.7-15.3); MCH 25.9 pg (25.7-33.7); MCHC 31.7 g/dl (32.0-36.0); MEAN CELL VOLUME 81.8 fl (80-96); MEAN PLT VOLUME 8.3 fl (7.5-11.1); MONO % 6.6 % (3.8-10.2); NEUT % 48.4 % (42.8-82.8); PLATELET COUNT 273 10^3/uL (134-434); RBC 5.57 M/mm3 (3.60-5.2); WHITE BLOOD COUNT 8.9 K/mm3 (4.0-10.0)
[2023-09-09] MEDS ORDERED: ACETAMINOPHEN INJECTION 100 ML IVPB ONE (19:17)
[2023-09-09] MEDS ORDERED: METOCLOPRAMIDE HCL INJECTION 10 MG/2 ML VIAL ONE (19:17)
[2023-09-09] MEDS: ACETAMINOPHEN 1000 MG/100 ML BAG IVPB ONE (19:29)
[2023-09-09] MEDS: METOCLOPRAMIDE HCL INJECTION 10 MG/2 ML VIAL IVPUSH ONE (19:29)
[2023-09-09 19:37] LABS: POTASSIUM 4.8 mmol/L (3.5-5.1)
[2023-09-09 19:39] LABS: BLOOD UREA NITROGEN 19.8 mg/dL (7-18); CALCIUM 9.9 mg/dL (8.5-10.1)
[2023-09-09 19:40] LABS: ALBUMIN 3.6 g/dl (3.4-5.0)
[2023-09-09 19:43] LABS: CREATININE 1.2 mg/dL (0.55-1.3)
[2023-09-09 19:44] LABS: BILIRUBIN,TOTAL 0.4 mg/dL (0.2-1); TOT PROT 7.2 g/dl (6.4-8.2)
[2023-09-09] MEDS ORDERED: ALBUTEROL SO4 0.083% IH SOL 2.5 MG/3 ML VIAL.NEB. NEB ONE (22:21)
[2023-09-09] MEDS: ALBUTEROL SO4 0.083% IH SOL 2.5 MG/3 ML VIAL.NEB. NEB ONE (22:25)
[2023-09-09 22:46] VITALS: BP 117/77; TEMP 98.2
== END 2023-09-09 23:29 | disposition home or self-care (01) ==
LOC: JER 17:46
PROC: 3E033NZ Introduction of Analgesics, Hypnotics, Sedatives into Peripheral Vein, Percutaneous Approach (ICD-10-PCS; principal; 2023-09-09)
PROC: 3E033GC Introduction of Other Therapeutic Substance into Peripheral Vein, Percutaneous Approach (ICD-10-PCS; 2023-09-09)
PROC: 3E0F7GC Introduction of Other Therapeutic Substance into Respiratory Tract, Via Natural or Artificial Opening (ICD-10-PCS; 2023-09-09)
DX: R51.9 Headache, unspecified (principal); R42 Dizziness and giddiness; R06.02 Shortness of breath; Z20.822 Contact with and (suspected) exposure to COVID-19
CPT/HCPCS: 0241U-QW; 36415; 71046-TC-FY; 80053; 83880; 84484; 85025; 93005; 93010; 99285-25; J0131

== ENCOUNTER 2023-12-22 11:32 | Inpatient (IN) | payer OTHER ==
[2023-12-22] MEDS ORDERED: methylPREDNISolone NA SUCC 125 MG/2 ML VIAL ONE (12:20)
[2023-12-22] MEDS ORDERED: MAGNESIUM SULFATE IN WATER 2 GM/50 ML IVPB IVPB ONE (12:20)
[2023-12-22] MEDS ORDERED: ALBUTEROL SO4 2.5/IPRATROPIUM 0.5 INH SOL 3 ML VIAL.NEB. NEB ONE ×2 (12:20→14:34)
[2023-12-22] MEDS: ALBUTEROL SO4 2.5/IPRATROPIUM 0.5 INH SOL 3 ML VIAL.NEB. NEB ONE ×2 (12:25→14:40)
[2023-12-22] MEDS: methylPREDNISolone NA SUCC 125 MG/2 ML VIAL IVPB ONE (12:39)
[2023-12-22] MEDS: MAGNESIUM SULF 50% (8.12 MEQ/2 ML-1 GM VIAL) IVPB ONE (12:39)
[2023-12-22 13:29] LABS: BASO % 0.4 % (0-2.0); EOS % 0.2 % (0-4.5); HEMATOCRIT 42.9 % (32.4-45.2); HEMOGLOBIN 13.9 GM/dL (10.7-15.3); LYMPH % 27.1 % (8-40); MCH 25.6 pg (25.7-33.7); MCHC 32.4 g/dl (32.0-36.0); MEAN CELL VOLUME 78.9 fl (80-96); MEAN PLT VOLUME 8.2 fl (7.5-11.1); MONO % 6.3 % (3.8-10.2); PLATELET COUNT 230 10^3/uL (134-434); RBC 5.43 M/mm3 (3.60-5.2); RDW 14.6 % (11.6-15.6)
[2023-12-22 13:53] LABS: POTASSIUM 3.8 mmol/L (3.5-5.1)
[2023-12-22 13:56] LABS: CALCIUM 9.1 mg/dL (8.5-10.1)
[2023-12-22 13:57] LABS: ALBUMIN 3.4 g/dl (3.4-5.0)
[2023-12-22 14:02] LABS: BILIRUBIN,TOTAL 0.4 mg/dL (0.2-1); TOT PROT 7.2 g/dl (6.4-8.2)
[2023-12-22 14:18] LABS: CREATININE 0.9 mg/dL (0.55-1.3)
[2023-12-22] MEDS ORDERED: INSULIN ASPART SLIDING SCALE (NOVOLOG) 1 VIAL SQ ONE (15:50)
[2023-12-22] MEDS: INSULIN ASPART SLIDING SCALE (NOVOLOG) 1 VIAL SQ SCH (15:57)
[2023-12-22] MEDS ORDERED: FUROSEMIDE 40 MG TABLET (FP) ONE (16:01)
[2023-12-22] MEDS ORDERED: ASPIRIN COATED 81 MG TABLET.EC ONE (16:02)
[2023-12-22] MEDS ORDERED: SPIRONOLACTONE 25 MG TABLET ONE (16:02)
[2023-12-22] MEDS ORDERED: NICOTINE 7 MG/24 HOURS TOPICAL PATCH TD ONE (16:02)
[2023-12-22] MEDS: SPIRONOLACTONE 25 MG TABLET PO SCH (16:23)
[2023-12-22] MEDS: NICOTINE 7 MG/24 HOURS TOPICAL PATCH TD SCH (16:24)
[2023-12-22] MEDS: ASPIRIN COATED 81 MG TABLET.EC PO SCH (16:24)
[2023-12-22] MEDS: FUROSEMIDE 40 MG TABLET (FP) PO SCH (16:24)
[2023-12-22] MEDS: METHIMAZOLE 10 MG TABLET PO SCH (17:58)
[2023-12-22] MEDS ORDERED: TOPIRAMATE 100 MG TABLET ONE (21:09)
[2023-12-22] MEDS ORDERED: IPRATROPIUM BR 0.02% 0.5 MG/2.5 ML VIAL.NEB. NEB ONE (21:09)
[2023-12-22] MEDS: IPRATROPIUM BR 0.02% 0.5 MG/2.5 ML VIAL.NEB. NEB SCH (21:14)
[2023-12-22] MEDS: TOPIRAMATE 100 MG TABLET PO SCH (21:15)
[2023-12-22] MEDS ORDERED: ATORVASTATIN CA 40 MG TABLET (FP) ONE (21:16)
[2023-12-22] MEDS: ATORVASTATIN CA 40 MG TABLET (FP) PO SCH (21:35)
[2023-12-22] MEDS: LEVALBUTEROL HCL 0.31 MG/3 ML VIAL.NEB IH SCH (21:50)
[2023-12-22] MEDS: SACUBITRIL/VALSARTAN 97 MG-103 MG TABLET PO SCH (21:55)
[2023-12-22] MEDS: DRONEDARONE HCL 400 MG TAB (FP) PO SCH (21:55)
[2023-12-22] MEDS: PRAMIPEXOLE DIHYDROCHLORIDE 0.5 MG TABLET PO SCH (21:55)
[2023-12-23] MEDS ORDERED: LEVALBUTEROL HCL 0.31 MG/3 ML VIAL.NEB IH ONE ×2 (05:00→07:27)
[2023-12-23] MEDS: LEVALBUTEROL HCL 0.31 MG/3 ML VIAL.NEB IH ONE (05:04)
[2023-12-23] MEDS ORDERED: FUROSEMIDE 40 MG TABLET (FP) ONE ×2 (05:51→14:22)
[2023-12-23] MEDS ORDERED: IPRATROPIUM BR 0.02% 0.5 MG/2.5 ML VIAL.NEB. NEB ONE (07:28)
[2023-12-23] MEDS ORDERED: methylPREDNISolone NA SUCC 40 MG/1 ML VIAL ONE (07:28)
[2023-12-23] MEDS: methylPREDNISolone NA SUCC 40 MG/1 ML VIAL IVPUSH SCH (07:45)
[2023-12-23 07:57] LABS: HEMATOCRIT 42.7 % (32.4-45.2); HEMOGLOBIN 13.6 GM/dL (10.7-15.3); MCH 25.6 pg (25.7-33.7); MCHC 31.8 g/dl (32.0-36.0); MEAN CELL VOLUME 80.3 fl (80-96); MEAN PLT VOLUME 8.7 fl (7.5-11.1); PLATELET COUNT 232 10^3/uL (134-434); RBC 5.32 M/mm3 (3.60-5.2); RDW 14.9 % (11.6-15.6); WHITE BLOOD COUNT 13.4 K/mm3 (4.0-10.0)
[2023-12-23 08:09] LABS: POTASSIUM 4.3 mmol/L (3.5-5.1)
[2023-12-23 08:11] LABS: BLOOD UREA NITROGEN 16.6 mg/dL (7-18)
[2023-12-23 08:15] LABS: CREATININE 0.8 mg/dL (0.55-1.3)
[2023-12-23] MEDS ORDERED: INSULIN ASPART SLIDING SCALE (NOVOLOG) 1 VIAL SQ ONE ×3 (08:16→17:38)
[2023-12-23] MEDS: ENOXAPARIN NA (PORCINE) 40 MG/0.4 ML DISP.SYRIN SQ SCH (10:34)
[2023-12-23] MEDS: BUDESONIDE/FORMETEROL FUMARATE 160/4.5 mcg INHALER IH SCH (12:29)
[2023-12-23] MEDS ORDERED: LORATADINE 10 MG TABLET ONE (17:07)
[2023-12-23] MEDS ORDERED: ALBUTEROL SO4 HFA INHALER IH ONE (17:08)
[2023-12-23] MEDS ORDERED: ACETAMINOPHEN 325 MG TABLET (FP) PO PRN (17:10)
[2023-12-23] MEDS: LORATADINE 10 MG TABLET PO ONE (17:11)
[2023-12-23] MEDS: ALBUTEROL SO4 HFA INHALER IH PRN (17:11)
[2023-12-23 20:00] VITALS: BMI 49.6
[2023-12-24 08:32] LABS: HEMATOCRIT 42.2 % (32.4-45.2); HEMOGLOBIN 13.8 GM/dL (10.7-15.3); LYMPH % 15.7 % (8-40); MCH 25.9 pg (25.7-33.7); MCHC 32.7 g/dl (32.0-36.0); MEAN PLT VOLUME 8.7 fl (7.5-11.1); MONO % 3.4 % (3.8-10.2); NEUT % 80.9 % (42.8-82.8); PLATELET COUNT 208 10^3/uL (134-434); RBC 5.34 M/mm3 (3.60-5.2); RDW 14.6 % (11.6-15.6); WHITE BLOOD COUNT 11.3 K/mm3 (4.0-10.0)
[2023-12-24 09:01] LABS: POTASSIUM 4.4 mmol/L (3.5-5.1)
[2023-12-24 09:04] LABS: CALCIUM 9.3 mg/dL (8.5-10.1)
[2023-12-24 09:05] LABS: ALBUMIN 2.9 g/dl (3.4-5.0); BLOOD UREA NITROGEN 14.9 mg/dL (7-18); MAGNESIUM 2.1 mg/dL (1.8-2.4)
[2023-12-24 09:07] LABS: CREATININE 0.9 mg/dL (0.55-1.3)
[2023-12-24 09:10] LABS: BILIRUBIN,TOTAL 0.4 mg/dL (0.2-1); TOT PROT 6.5 g/dl (6.4-8.2)
[2023-12-24] MEDS: LORATADINE 10 MG TABLET PO SCH (09:31)
[2023-12-24] MEDS: METHIMAZOLE 10 MG TABLET PO SCH (21:40)
[2023-12-25 09:25] LABS: BASO % 0.1 % (0-2.0); HEMOGLOBIN 14.7 GM/dL (10.7-15.3); LYMPH % 15.5 % (8-40); MCH 25.7 pg (25.7-33.7); MEAN CELL VOLUME 80.3 fl (80-96); MEAN PLT VOLUME 9.6 fl (7.5-11.1); MONO % 4.2 % (3.8-10.2); NEUT % 80.2 % (42.8-82.8); PLATELET COUNT 233 10^3/uL (134-434); RBC 5.73 M/mm3 (3.60-5.2); RDW 14.6 % (11.6-15.6); WHITE BLOOD COUNT 14.1 K/mm3 (4.0-10.0)
[2023-12-25 13:09] LABS: CHLORIDE 103 mmol/L (98-107); POTASSIUM 4.3 mmol/L (3.5-5.1); SODIUM 135 mmol/L (136-145)
[2023-12-25 13:11] LABS: ALBUMIN 3.1 g/dl (3.4-5.0); CALCIUM 9.1 mg/dL (8.5-10.1)
[2023-12-25 13:12] LABS: ANION GAP 8 mmol/L (4-13); CO2 24 mmol/L (21-32); MAGNESIUM 2.1 mg/dL (1.8-2.4)
[2023-12-25 13:13] LABS: GLUCOSE,RANDOM 460 mg/dL (74-106)
[2023-12-25 13:14] LABS: SGPT/ALT 32 U/L (13-61)
[2023-12-25 13:15] LABS: CREATININE 1.1 mg/dL (0.55-1.3); SGOT/AST 4 U/L (15-37)
[2023-12-25 13:17] LABS: ALK PHOS 120 U/L (45-117); BILIRUBIN,TOTAL 0.4 mg/dL (0.2-1)
[2023-12-25] MEDS: PHENYLEPHRINE HCL/COCOA BUTTER 1 EACH SUPP.RECT RC SCH (16:56)
[2023-12-25] MEDS ORDERED: INSULIN (LEVEMIR) 100 UNITS/ML UNITS SQ SCH (22:00)
[2023-12-25] MEDS: INSULIN (LEVEMIR) 100 UNITS/ML UNITS SQ SCH (22:38)
[2023-12-26] MEDS: INSULIN (NOVOLOG MIX 70/30) 100 UNITS/ML MDV SQ SCH (07:03)
[2023-12-26 09:01] LABS: BASO % 0.1 % (0-2.0); HEMATOCRIT 44.9 % (32.4-45.2); HEMOGLOBIN 14.8 GM/dL (10.7-15.3); LYMPH % 13.6 % (8-40); MCH 25.8 pg (25.7-33.7); MEAN CELL VOLUME 78.2 fl (80-96); MEAN PLT VOLUME 9.1 fl (7.5-11.1); MONO % 4.1 % (3.8-10.2); NEUT % 82.2 % (42.8-82.8); PLATELET COUNT 229 10^3/uL (134-434); RBC 5.74 M/mm3 (3.60-5.2); RDW 14.6 % (11.6-15.6)
[2023-12-26 09:52] LABS: POTASSIUM 4.6 mmol/L (3.5-5.1)
[2023-12-26 10:06] LABS: CALCIUM 9.4 mg/dL (8.5-10.1)
[2023-12-26 10:07] LABS: MAGNESIUM 2.1 mg/dL (1.8-2.4)
[2023-12-26 10:08] LABS: ALBUMIN 3.1 g/dl (3.4-5.0); BLOOD UREA NITROGEN 21.9 mg/dL (7-18)
[2023-12-26 10:10] LABS: BILIRUBIN,TOTAL 0.4 mg/dL (0.2-1)
[2023-12-26 10:12] LABS: TOT PROT 6.8 g/dl (6.4-8.2)
[2023-12-26] MEDS ORDERED: INSULIN ASPART SLIDING SCALE (NOVOLOG) 1 VIAL SQ ONE (11:12)
[2023-12-26] MEDS: methylPREDNISolone NA SUCC 40 MG/1 ML VIAL IVPUSH SCH (18:20)
[2023-12-27 07:30] LABS: HEMOGLOBIN 14.5 GM/dL (10.7-15.3); MCH 25.3 pg (25.7-33.7); MCHC 31.5 g/dl (32.0-36.0); MEAN CELL VOLUME 80.1 fl (80-96); MEAN PLT VOLUME 9.1 fl (7.5-11.1); PLATELET COUNT 231 10^3/uL (134-434); RBC 5.74 M/mm3 (3.60-5.2); RDW 14.8 % (11.6-15.6); WHITE BLOOD COUNT 17.5 K/mm3 (4.0-10.0)
[2023-12-27] MEDS ORDERED: INSULIN (LEVEMIR) 100 UNITS/ML UNITS SQ SCH (07:34)
[2023-12-27 07:56] LABS: POTASSIUM 4.4 mmol/L (3.5-5.1)
[2023-12-27 08:08] LABS: BLOOD UREA NITROGEN 23.1 mg/dL (7-18); MAGNESIUM 2.1 mg/dL (1.8-2.4)
[2023-12-27 08:13] LABS: BILIRUBIN,TOTAL 0.4 mg/dL (0.2-1); TOT PROT 6.5 g/dl (6.4-8.2)
[2023-12-27] MEDS: methylPREDNISolone NA SUCC 40 MG/1 ML VIAL IVPUSH SCH (09:13)
[2023-12-27] MEDS: INSULIN (NOVOLOG) ASPART 100 UNITS/ML 10ML VIAL SQ ONE ×2 (12:08→13:29)
[2023-12-27] MEDS ORDERED: ALBUTEROL SO4 HFA INHALER IH PRN (14:48)
[2023-12-27] MEDS ORDERED: ACETAMINOPHEN 325 MG TABLET (FP) PO PRN (14:48)
[2023-12-27] MEDS ORDERED: INSULIN (NOVOLOG MIX 70/30) 100 UNITS/ML MDV SQ SCH (16:30)
[2023-12-27] MEDS ORDERED: INSULIN ASPART SLIDING SCALE (NOVOLOG) 1 VIAL SQ SCH (16:30)
[2023-12-27 16:59] LABS: CHLORIDE 103 mmol/L (98-107); POTASSIUM 4.5 mmol/L (3.5-5.1); SODIUM 136 mmol/L (136-145)
[2023-12-27 17:01] LABS: ANION GAP 6 mmol/L (4-13); BLOOD UREA NITROGEN 23.9 mg/dL (7-18); CALCIUM 9.3 mg/dL (8.5-10.1); CO2 27 mmol/L (21-32)
[2023-12-27] MEDS: INSULIN (NOVOLOG MIX 70/30) 100 UNITS/ML MDV SQ SCH (17:04)
[2023-12-27 17:05] LABS: CREATININE 1.2 mg/dL (0.55-1.3)
[2023-12-27] MEDS: INSULIN ASPART SLIDING SCALE (NOVOLOG) 1 VIAL SQ SCH (17:05)
[2023-12-27 17:08] LABS: GLUCOSE,RANDOM 464 mg/dL (74-106)
[2023-12-27] MEDS: IPRATROPIUM BR 0.02% 0.5 MG/2.5 ML VIAL.NEB. NEB SCH (19:59)
[2023-12-27] MEDS: LEVALBUTEROL HCL 0.31 MG/3 ML VIAL.NEB IH SCH (21:00)
[2023-12-27] MEDS: PRAMIPEXOLE DIHYDROCHLORIDE 0.5 MG TABLET PO SCH (21:23)
[2023-12-27] MEDS: SACUBITRIL/VALSARTAN 97 MG-103 MG TABLET PO SCH (21:23)
[2023-12-27] MEDS: ATORVASTATIN CA 40 MG TABLET (FP) PO SCH (21:23)
[2023-12-27] MEDS: TOPIRAMATE 100 MG TABLET PO SCH (21:24)
[2023-12-27] MEDS: DRONEDARONE HCL 400 MG TAB (FP) PO SCH (21:24)
[2023-12-27] MEDS: METHIMAZOLE 10 MG TABLET PO SCH (21:24)
[2023-12-27] MEDS: PHENYLEPHRINE HCL/COCOA BUTTER 1 EACH SUPP.RECT RC SCH (21:40)
[2023-12-27] MEDS: BUDESONIDE/FORMETEROL FUMARATE 160/4.5 mcg INHALER IH SCH (21:40)
[2023-12-27] MEDS: INSULIN (LEVEMIR) 100 UNITS/ML UNITS SQ SCH (22:04)
[2023-12-28] MEDS: FUROSEMIDE 40 MG TABLET (FP) PO SCH (06:27)
[2023-12-28 07:25] LABS: BASO % 0.2 % (0-2.0); EOS % 0.5 % (0-4.5); HEMATOCRIT 46.2 % (32.4-45.2); HEMOGLOBIN 14.7 GM/dL (10.7-15.3); LYMPH % 38.2 % (8-40); MCH 25.5 pg (25.7-33.7); MCHC 31.8 g/dl (32.0-36.0); MEAN CELL VOLUME 80.2 fl (80-96); NEUT % 55.1 % (42.8-82.8); PLATELET COUNT 217 10^3/uL (134-434); RBC 5.75 M/mm3 (3.60-5.2); RDW 14.8 % (11.6-15.6); WHITE BLOOD COUNT 16.6 K/mm3 (4.0-10.0)
[2023-12-28 07:44] LABS: CALCIUM 9.1 mg/dL (8.5-10.1)
[2023-12-28 07:45] LABS: BLOOD UREA NITROGEN 29.3 mg/dL (7-18); MAGNESIUM 2.1 mg/dL (1.8-2.4)
[2023-12-28 07:48] LABS: CREATININE 1.1 mg/dL (0.55-1.3)
[2023-12-28 07:49] LABS: BILIRUBIN,TOTAL 0.5 mg/dL (0.2-1); TOT PROT 6.2 g/dl (6.4-8.2)
[2023-12-28 09:25] VITALS: BP 126/99; PULSE 100; RESP 19; TEMP 98.2
[2023-12-28] MEDS: predniSONE 20 MG TABLET (UD) PO SCH (09:29)
[2023-12-28] MEDS: LORATADINE 10 MG TABLET PO SCH (09:29)
[2023-12-28] MEDS: SPIRONOLACTONE 25 MG TABLET PO SCH (09:29)
[2023-12-28] MEDS: ASPIRIN COATED 81 MG TABLET.EC PO SCH (09:29)
[2023-12-28] MEDS: NICOTINE 7 MG/24 HOURS TOPICAL PATCH TD SCH (09:30)
[2023-12-28] MEDS: ENOXAPARIN NA (PORCINE) 40 MG/0.4 ML DISP.SYRIN SQ SCH (09:30)
== END 2023-12-28 10:23 | disposition home or self-care (01) | DRG 140 ==
LOC: JER 11:32 → JERBED 12:52 → J8W 12-23 19:17 → J4W 12-26 18:15
PROVIDERS: ADMIT Internal Medicine; ATTEND Nurse Practitioner Acute Care
DX: J44.9 Chronic obstructive pulmonary disease, unspecified (principal); E11.65 Type 2 diabetes mellitus with hyperglycemia; I47.19 Other supraventricular tachycardia; I50.22 Chronic systolic (congestive) heart failure; Z68.41 Body mass index [BMI] 40.0-44.9, adult; G25.81 Restless legs syndrome; I48.91 Unspecified atrial fibrillation; I50.32 Chronic diastolic (congestive) heart failure; E66.01 Morbid (severe) obesity due to excess calories; E05.90 Thyrotoxicosis, unspecified without thyrotoxic crisis or storm; F17.200 Nicotine dependence, unspecified, uncomplicated; F41.8 Other specified anxiety disorders; G47.33 Obstructive sleep apnea (adult) (pediatric); J45.909 Unspecified asthma, uncomplicated; K21.9 Gastro-esophageal reflux disease without esophagitis; E78.5 Hyperlipidemia, unspecified
CPT/HCPCS: 0241U-QW; 36415; 71045-TC-FY; 80048; 80053; 81003; 82010; 82962; 83036; 83735; 83880; 84439; 84443; 84484; 85025; 85027; 85610; 85730; 93005; 93010; 94640; 94660; 99285-25; G0378

== ENCOUNTER 2024-07-22 01:50 | Observation (INO) | payer OTHER ==
[2024-07-22 02:01] VITALS: RESP 18
[2024-07-22 02:38] LABS: ABSOLUTE IMMATURE GRANULOCYTES 0.02 x10^3/uL (0.0-0.031); BASOPHILS # 0.06 x10^3/uL (0.01-0.08); EOSINOPHIL % 2.1 % (0.7-5.8); EOSINOPHILS # 0.18 x10^3/uL (0.04-0.36); HEMATOCRIT 41.9 % (34.1-44.9); HEMOGLOBIN 13.2 g/dL (11.2-15.7); MCHC 31.5 g/dl (32.2-35.5); MEAN CELL VOLUME 81.7 fl (79.4-94.8); MONOCYTE # 0.52 x10^3/uL (0.24-0.86); MONOCYTE % 6.2 % (4.7-12.5); PLATELET COUNT 240 x10^3/uL (182-369); RDW 13.3 % (12.3-16.6)
[2024-07-22] MEDS: INSULIN REGULAR HUMAN 100 UNITS/ML *VIAL IVPUSH ONE (02:53)
[2024-07-22 02:57] LABS: CHLORIDE 97 mmol/L (98-107); SODIUM 136 mmol/L (136-145)
[2024-07-22 02:59] LABS: CALCIUM 9.3 mg/dL (8.5-10.1)
[2024-07-22 03:00] LABS: ALBUMIN 3.4 g/dl (3.4-5.0); ANION GAP 8 mmol/L (4-13); BLOOD UREA NITROGEN 18.1 mg/dL (7-18); CO2 30 mmol/L (21-32); MAGNESIUM 1.7 mg/dL (1.8-2.4)
[2024-07-22 03:03] LABS: CREATININE 1.5 mg/dL (0.55-1.3); SGOT/AST 23 U/L (15-37); SGPT/ALT 43 U/L (13-61)
[2024-07-22 03:04] LABS: VENOUS BASE EXCESS 2.8 mmol/L (-2-2); VENOUS O2 SATURATION 82.4 % (70-80); VENOUS PCO2 48.7 mmHg (38-52); VENOUS PH 7.387 (7.310-7.410)
[2024-07-22 03:05] LABS: BILIRUBIN,TOTAL 0.3 mg/dL (0.2-1)
[2024-07-22 03:06] LABS: ALK PHOS 142 U/L (45-117)
[2024-07-22] MEDS: LACTATED RINGERS SOLUTION 1000 ML INFUS.BAG IV ONE ×2 (03:08→03:36)
[2024-07-22] MEDS ORDERED: MAGNESIUM SULFATE IN WATER 2 GM/50 ML IVPB IVPB ONE (03:26)
[2024-07-22] MEDS: MAGNESIUM SULF 50% (8.12 MEQ/2 ML-1 GM VIAL) IVPB ONE (03:36)
[2024-07-22 03:38] LABS: GLUCOSE,RANDOM 564 mg/dL (74-106)
[2024-07-22 04:04] LABS: HIV INTERPRETATION NEGATIVE (NEGATIVE)
[2024-07-22 04:05] LABS: HCV DIAGNOSTIC IN-HOUSE W/RFLX NON-REACTIVE (NONREACTIVE)
[2024-07-22 04:51] LABS: PH,URINE 5.5 (5.0-8.0); URINE APPEARANCE CLEAR; URINE BILIRUBIN NEGATIVE (NEGATIVE); URINE COLOR YELLOW; URINE GLUCOSE (UA) 3+ (NEGATIVE); URINE KETONE NEGATIVE (NEGATIVE); URINE LEUK ESTERASE NEGATIVE (NEGATIVE); URINE NITRITE NEGATIVE (NEGATIVE); URINE PROTEIN NEGATIVE (NEGATIVE)
[2024-07-22] MEDS ORDERED: IPRATROPIUM BR 0.02% 0.5 MG/2.5 ML VIAL.NEB. NEB ONE (08:03)
[2024-07-22] MEDS ORDERED: ACETAMINOPHEN 500 MG TABLET (FP) ONE (08:04)
[2024-07-22] MEDS: ACETAMINOPHEN 500 MG TABLET (FP) PO PRN (08:09)
[2024-07-22] MEDS: IPRATROPIUM BR 0.02% 0.5 MG/2.5 ML VIAL.NEB. NEB SCH (08:09)
[2024-07-22] MEDS: INSULIN (NOVOLOG) ASPART 100 UNITS/ML 10ML VIAL SQ ONE ×2 (08:15→14:32)
[2024-07-22 08:58] LABS: CHLORIDE 99 mmol/L (98-107); SODIUM 135 mmol/L (136-145)
[2024-07-22 09:00] LABS: ANION GAP 9 mmol/L (4-13); BLOOD UREA NITROGEN 19.2 mg/dL (7-18); CALCIUM 9.5 mg/dL (8.5-10.1); CO2 27 mmol/L (21-32)
[2024-07-22 09:01] LABS: ALBUMIN 3.5 g/dl (3.4-5.0)
[2024-07-22 09:03] LABS: SGPT/ALT 41 U/L (13-61)
[2024-07-22 09:04] LABS: CREATININE 1.2 mg/dL (0.55-1.3); SGOT/AST 20 U/L (15-37)
[2024-07-22 09:05] LABS: BILIRUBIN,TOTAL 0.3 mg/dL (0.2-1)
[2024-07-22 09:06] LABS: ALK PHOS 146 U/L (45-117); GLUCOSE,RANDOM 406 mg/dL (74-106); TOT PROT 7.2 g/dl (6.4-8.2)
[2024-07-22] MEDS ORDERED: APIXABAN 5 MG TABLET ONE (09:51)
[2024-07-22] MEDS: ASPIRIN COATED 81 MG TABLET.EC PO SCH (10:00)
[2024-07-22] MEDS ORDERED: FUROSEMIDE 40 MG TABLET (FP) PO SCH (10:00)
[2024-07-22] MEDS: LORATADINE 10 MG TABLET PO SCH (10:00)
[2024-07-22] MEDS: APIXABAN 5 MG TABLET PO SCH (10:00)
[2024-07-22] MEDS: SPIRONOLACTONE 25 MG TABLET PO SCH (10:01)
[2024-07-22] MEDS: DRONEDARONE HCL 400 MG TAB (FP) PO SCH (10:01)
[2024-07-22] MEDS: METHIMAZOLE 10 MG TABLET PO SCH (10:01)
[2024-07-22] MEDS: FLUTICASONE/UMECLIDIN/VILANTER(200-62.5-25 TRELEGY ELLIPTA) INAHLER IH SCH (10:02)
[2024-07-22] MEDS ORDERED: INSULIN GLARGINE (LANTUS) 100 UNITS/ML UNITS SQ ONE (10:05)
[2024-07-22] MEDS: INSULIN GLARGINE (LANTUS) 100 UNITS/ML UNITS SQ SCH ×2 (10:11→22:02)
[2024-07-22] MEDS ORDERED: INSULIN (NOVOLOG) ASPART 100 UNITS/ML 10ML VIAL SQ SCH (11:00)
[2024-07-22 11:02] VITALS: BMI 54.4
[2024-07-22] MEDS: INSULIN ASPART SLIDING SCALE (NOVOLOG) 1 VIAL SQ SCH (11:13)
[2024-07-22] MEDS: INSULIN (NOVOLOG) ASPART 100 UNITS/ML 10ML VIAL SQ SCH ×2 (11:13→17:11)
[2024-07-22] MEDS: FUROSEMIDE 40 MG TABLET (FP) PO SCH (17:11)
[2024-07-22] MEDS: ATORVASTATIN CA 40 MG TABLET (FP) PO SCH (22:01)
[2024-07-22] MEDS: PRAMIPEXOLE DIHYDROCHLORIDE 0.5 MG TABLET PO SCH (22:01)
[2024-07-23] MEDS: ALBUTEROL SO4 HFA INHALER IH PRN (06:10)
[2024-07-23 10:02] LABS: CALCIUM 9.3 mg/dL (8.5-10.1)
[2024-07-23 10:06] LABS: CREATININE 0.8 mg/dL (0.55-1.3)
[2024-07-23 10:10] LABS: ABSOLUTE IMMATURE GRANULOCYTES 0.02 x10^3/uL (0.0-0.031); BASOPHILS # 0.06 x10^3/uL (0.01-0.08); EOSINOPHIL % 2.8 % (0.7-5.8); HEMOGLOBIN 12.6 g/dL (11.2-15.7); MCHC 30.7 g/dl (32.2-35.5); MEAN CELL VOLUME 82.2 fl (79.4-94.8); MEAN PLT VOLUME 11.2 fl (9.4-12.3); MONOCYTE # 0.37 x10^3/uL (0.24-0.86); MONOCYTE % 5.1 % (4.7-12.5); PLATELET COUNT 228 x10^3/uL (182-369); RDW 13.6 % (12.3-16.6)
[2024-07-23] MEDS: SACUBITRIL/VALSARTAN 97 MG-103 MG TABLET PO SCH (10:43)
[2024-07-23 13:32] VITALS: BP 107/64; PULSE 74; TEMP 98.4
== END 2024-07-23 14:08 | disposition home or self-care (01) ==
LOC: JER 01:50 → JERBED 05:42 → J5S 10:39
PROVIDERS: ADMIT Internal Medicine; ATTEND Nurse Practitioner Family
PROC: 3E013VG Introduction of Insulin into Subcutaneous Tissue, Percutaneous Approach (ICD-10-PCS; principal; 2024-07-22)
PROC: 3E033VG Introduction of Insulin into Peripheral Vein, Percutaneous Approach (ICD-10-PCS; 2024-07-22)
PROC: 3E0F7GC Introduction of Other Therapeutic Substance into Respiratory Tract, Via Natural or Artificial Opening (ICD-10-PCS; 2024-07-22)
PROC: 3E0337Z Introduction of Electrolytic and Water Balance Substance into Peripheral Vein, Percutaneous Approach (ICD-10-PCS; 2024-07-22)
PROC: 3E033GC Introduction of Other Therapeutic Substance into Peripheral Vein, Percutaneous Approach (ICD-10-PCS; 2024-07-22)
DX: E11.65 Type 2 diabetes mellitus with hyperglycemia (principal); I25.10 Atherosclerotic heart disease of native coronary artery without angina pectoris; I11.0 Hypertensive heart disease with heart failure; I48.0 Paroxysmal atrial fibrillation; J44.9 Chronic obstructive pulmonary disease, unspecified; Z79.4 Long term (current) use of insulin; E05.90 Thyrotoxicosis, unspecified without thyrotoxic crisis or storm; G47.33 Obstructive sleep apnea (adult) (pediatric); Z91.013 Allergy to seafood; Z88.5 Allergy status to narcotic agent; Z91.012 Allergy to eggs
CPT/HCPCS: 36415; 71045-TC-FY; 80048; 80053; 81003; 82010; 82803; 82962; 83735; 83930; 84443; 85025; 86803; 87077; 87086; 87389; 93005; 93010; 94640; 94660; 96372; 96374; 96375; 99285-25; G0378

== ENCOUNTER 2024-12-08 00:21 | Inpatient (IN) | payer OTHER ==
[2024-12-08 00:38] VITALS: BMI 56.3
[2024-12-08 01:29] LABS: INR 1.24 (0.83-1.09); PROTHROMBIN TIME (PATIENT) 13.5 SEC (9.7-13.0)
[2024-12-08 01:36] LABS: IMMATURE PLATELET FRACTION # 8.20 x10^3/uL; MCHC 30.2 g/dl (32.2-35.5); MEAN CELL VOLUME 83.2 fl (79.4-94.8); MEAN PLT VOLUME 10.3 fl (9.4-12.3); RDW 13.6 % (12.3-16.6)
[2024-12-08 01:54] LABS: EPI CELLS 33 /uL (0-25.1); GLUCOSE,RANDOM 288.0 mg/dL (74-106); HYALINE CASTS 0 /uL (0-3.1); TOT PROT 6.8 g/dl (6.4-8.2); URINE APPEARANCE TURBID; URINE BACTERIA 35 /uL (0-1359); URINE BILIRUBIN NEGATIVE (NEGATIVE); URINE COLOR RED; URINE GLUCOSE (UA) 1+ (NEGATIVE); URINE KETONE NEGATIVE (NEGATIVE); URINE LEUK ESTERASE 1+ (NEGATIVE); URINE NITRITE NEGATIVE (NEGATIVE); URINE PROTEIN 1+ (NEGATIVE); URINE UROBILINOGEN 1.0 mg/dL (0.2-1.0); URINE WBC 84 /uL (0-25.8)
[2024-12-08 01:55] LABS: CO2 28.0 mmol/L (21-32)
[2024-12-08 01:57] LABS: ALK PHOS 113.0 U/L (40-150)
[2024-12-08 01:59] LABS: CREATININE 0.86 mg/dL (0.55-1.3); SGOT/AST 15.0 U/L (5-34); SGPT/ALT 17.0 U/L (0-55)
[2024-12-08 02:21] LABS: HCV DIAGNOSTIC IN-HOUSE W/RFLX NON-REACTIVE (NONREACTIVE); HIV INTERPRETATION NEGATIVE (NEGATIVE)
[2024-12-08] MEDS ORDERED: ALBUTEROL SO4 2.5/IPRATROPIUM 0.5 INH SOL 3 ML VIAL.NEB. NEB ONE (03:30)
[2024-12-08] MEDS ORDERED: ONDANSETRON 4 MG/2 ML VIAL IVPUSH PRN (03:40)
[2024-12-08] MEDS ORDERED: methylPREDNISolone NA SUCC 125 MG/2 ML VIAL ONE (03:42)
[2024-12-08] MEDS: methylPREDNISolone NA SUCC 40 MG/1 ML VIAL IVPUSH SCH ×3 (03:50→21:30)
[2024-12-08] MEDS: ALBUTEROL SO4 2.5/IPRATROPIUM 0.5 INH SOL 3 ML VIAL.NEB. NEB PRN ×2 (03:51→22:22)
[2024-12-08] MEDS: methylPREDNISolone NA SUCC 125 MG/2 ML VIAL IVPB ONE (03:54)
[2024-12-08] MEDS ORDERED: MAGNESIUM SULFATE IN WATER 2 GM/50 ML IVPB IVPB ONE (04:21)
[2024-12-08] MEDS: MAGNESIUM 2GM/50ML STERILE WATER IVPB IVPB ONE (04:41)
[2024-12-08 05:05] LABS: URINE RBC 23430.5 /uL (0-23.9); YEAST NONE SEEN (NEGATIVE)
[2024-12-08] MEDS ORDERED: HEPARIN NA (PORCINE) 5,000 UNITS/ML 1ML VIAL SQ SCH (06:00)
[2024-12-08] MEDS: INSULIN ASPART SLIDING SCALE (NOVOLOG) 1 VIAL SQ SCH (07:00)
[2024-12-08 08:46] LABS: MCHC 30.4 g/dl (32.2-35.5); MEAN CELL VOLUME 81.9 fl (79.4-94.8); MEAN PLT VOLUME 10.3 fl (9.4-12.3); RDW 13.6 % (12.3-16.6)
[2024-12-08 09:39] LABS: EOSINOPHIL % 1.6 % (0.7-5.8); MONOCYTE % 5.2 % (4.7-12.5)
[2024-12-08 10:07] LABS: GLUCOSE,RANDOM 267.0 mg/dL (74-106)
[2024-12-08 10:08] LABS: TOT PROT 7.4 g/dl (6.4-8.2)
[2024-12-08 10:09] LABS: CO2 23.0 mmol/L (21-32)
[2024-12-08 10:10] LABS: ALK PHOS 122.0 U/L (40-150)
[2024-12-08 10:13] LABS: CREATININE 0.78 mg/dL (0.55-1.3); SGOT/AST 15.0 U/L (5-34); SGPT/ALT 17.0 U/L (0-55)
[2024-12-08] MEDS: APIXABAN 5 MG TABLET PO SCH (10:40)
[2024-12-08] MEDS: METHIMAZOLE 10 MG TABLET PO SCH (10:40)
[2024-12-08] MEDS: ASPIRIN COATED 81 MG TABLET.EC PO SCH (10:40)
[2024-12-08] MEDS: FUROSEMIDE 40 MG/4 ML INJECTABLE VIAL IVPUSH SCH ×2 (10:41→16:55)
[2024-12-08] MEDS: DRONEDARONE HCL 400 MG TAB (FP) PO SCH (10:51)
[2024-12-08] MEDS: FLUTICASONE/UMECLIDIN/VILANTER(200-62.5-25 TRELEGY ELLIPTA) INAHLER IH SCH (10:51)
[2024-12-08] MEDS: SACUBITRIL/VALSARTAN 97 MG-103 MG TABLET PO SCH (10:52)
[2024-12-08] MEDS: SPIRONOLACTONE 25 MG TABLET PO SCH (11:10)
[2024-12-08] MEDS ORDERED: ALBUTEROL SO4 2.5/IPRATROPIUM 0.5 INH SOL 3 ML VIAL.NEB. NEB SCH (16:00)
[2024-12-08] MEDS: INSULIN (NOVOLOG) ASPART 100 UNITS/ML 10ML VIAL SQ ONE ×3 (16:09→21:16)
[2024-12-08] MEDS: PRAMIPEXOLE DIHYDROCHLORIDE 0.5 MG TABLET PO SCH (21:29)
[2024-12-08] MEDS: ATORVASTATIN CA 40 MG TABLET (FP) PO SCH (21:29)
[2024-12-08] MEDS: INSULIN GLARGINE (LANTUS) 100 UNITS/ML UNITS SQ SCH (21:30)
[2024-12-09] MEDS: PANTOPRAZOLE SODIUM 40 MG VIAL IVPUSH ONE (03:46)
[2024-12-09 07:39] LABS: ABSOLUTE IMMATURE GRANULOCYTES 0.11 x10^3/uL (0.0-0.031); BASOPHILS # 0.01 x10^3/uL (0.01-0.08); EOSINOPHIL % 0.0 % (0.7-5.8); EOSINOPHILS # 0.00 x10^3/uL (0.04-0.36); MCHC 30.9 g/dl (32.2-35.5); MEAN CELL VOLUME 80.5 fl (79.4-94.8); MEAN PLT VOLUME 10.4 fl (9.4-12.3); MONOCYTE # 0.38 x10^3/uL (0.24-0.86); MONOCYTE % 3.1 % (4.7-12.5); RDW 13.5 % (12.3-16.6)
[2024-12-09 08:41] LABS: GLUCOSE,RANDOM 384.0 mg/dL (74-106)
[2024-12-09 08:42] LABS: TOT PROT 7.3 g/dl (6.4-8.2)
[2024-12-09 08:43] LABS: CO2 23.0 mmol/L (21-32)
[2024-12-09 08:44] LABS: ALK PHOS 116.0 U/L (40-150)
[2024-12-09 08:47] LABS: CREATININE 0.83 mg/dL (0.55-1.3); SGOT/AST 13.0 U/L (5-34); SGPT/ALT 17.0 U/L (0-55)
[2024-12-09] MEDS: predniSONE 20 MG TABLET (UD) PO SCH (09:57)
[2024-12-09] MEDS: INSULIN ASPART SLIDING SCALE (NOVOLOG) 1 VIAL SQ SCH (11:52)
[2024-12-09] MEDS: INSULIN (NOVOLOG) ASPART 100 UNITS/ML 10ML VIAL SQ SCH (11:54)
[2024-12-09] MEDS: FUROSEMIDE 40 MG/4 ML INJECTABLE VIAL IVPUSH SCH (14:40)
[2024-12-09] MEDS: INSULIN GLARGINE (LANTUS) 100 UNITS/ML UNITS SQ SCH (21:26)
[2024-12-09] MEDS: INSULIN (NOVOLOG) ASPART 100 UNITS/ML 10ML VIAL SQ ONE ×2 (22:57→23:53)
[2024-12-10] MEDS: INSULIN (NOVOLOG) ASPART 100 UNITS/ML 10ML VIAL SQ ONE ×3 (01:05→23:29)
[2024-12-10] MEDS ORDERED: INSULIN REGULAR HUMAN 100 UNITS/ML *VIAL IVPUSH ONE (03:00)
[2024-12-10] MEDS: INSULIN (NOVOLOG) ASPART 100 UNITS/ML 10ML VIAL SQ STA (03:06)
[2024-12-10 03:26] LABS: MCHC 30.9 g/dl (32.2-35.5); MEAN CELL VOLUME 81.8 fl (79.4-94.8); MEAN PLT VOLUME 9.9 fl (9.4-12.3); RDW 13.6 % (12.3-16.6)
[2024-12-10 03:45] LABS: GLUCOSE,RANDOM 233.0 mg/dL (74-106)
[2024-12-10 03:46] LABS: CO2 26.0 mmol/L (21-32)
[2024-12-10 03:51] LABS: CREATININE 0.92 mg/dL (0.55-1.3)
[2024-12-10] MEDS: INSULIN REGULAR HUMAN 100 UNITS/ML *VIAL IVPUSH STA (07:39)
[2024-12-10] MEDS: INSULIN (NOVOLOG) ASPART 100 UNITS/ML 10ML VIAL SQ SCH (11:26)
[2024-12-10] MEDS: FUROSEMIDE 40 MG/4 ML INJECTABLE VIAL IVPUSH ONE (11:26)
[2024-12-11] MEDS: INSULIN (NOVOLOG) ASPART 100 UNITS/ML 10ML VIAL SQ ONE (00:43)
[2024-12-11 08:32] LABS: MCHC 30.3 g/dl (32.2-35.5); MEAN CELL VOLUME 82.7 fl (79.4-94.8); MEAN PLT VOLUME 10.0 fl (9.4-12.3); RDW 13.7 % (12.3-16.6)
[2024-12-11 09:01] LABS: GLUCOSE,RANDOM 139.0 mg/dL (74-106)
[2024-12-11 09:02] LABS: CO2 29.0 mmol/L (21-32)
[2024-12-11] MEDS: INSULIN GLARGINE (LANTUS) 100 UNITS/ML UNITS SQ SCH (09:31)
[2024-12-11 11:08] LABS: CREATININE 0.95 mg/dL (0.55-1.3)
[2024-12-11 12:16] VITALS: BP 120/84; PULSE 79
[2024-12-11] MEDS: INSULIN (NOVOLOG) ASPART 100 UNITS/ML 10ML VIAL SQ SCH (12:19)
[2024-12-11 14:31] VITALS: RESP 16; TEMP 98.1
[2024-12-11] MEDS: FUROSEMIDE 40 MG TABLET (FP) PO SCH (15:25)
== END 2024-12-11 16:20 | disposition home or self-care (01) | DRG 194 ==
LOC: JER 00:21 → JERBED 00:57 → UNDOADMIN 00:57 → INTOOBSV 03:30 → JERBED 03:30 → UNDOADMOB 03:30 → JERBED 03:40 → J7W 05:03 → JERBED 05:03 → J7W 05:03 → OBSVTOIN 11:41
PROVIDERS: ADMIT Hospitalist; ATTEND Internal Medicine
DX: I11.0 Hypertensive heart disease with heart failure (principal); I50.33 Acute on chronic diastolic (congestive) heart failure; G47.33 Obstructive sleep apnea (adult) (pediatric); E05.90 Thyrotoxicosis, unspecified without thyrotoxic crisis or storm; J44.1 Chronic obstructive pulmonary disease with (acute) exacerbation; E66.01 Morbid (severe) obesity due to excess calories; E11.65 Type 2 diabetes mellitus with hyperglycemia; F17.210 Nicotine dependence, cigarettes, uncomplicated; N95.0 Postmenopausal bleeding; I48.91 Unspecified atrial fibrillation; I25.10 Atherosclerotic heart disease of native coronary artery without angina pectoris; G25.81 Restless legs syndrome; F41.8 Other specified anxiety disorders; N93.9 Abnormal uterine and vaginal bleeding, unspecified; R60.0 Localized edema; Z68.43 Body mass index [BMI] 50.0-59.9, adult
CPT/HCPCS: 36415; 71045-TC-FY; 76830-TC; 80048; 80053; 81003; 82962; 83036; 83735; 83880; 84100; 85025; 85027; 85610; 86803; 86850; 86900; 86901; 87086; 87389; 93005; 93010; 93971-TC-RT; 94640; 94660; 99285-25; G0378